=== PATIENT | female | born 1985 | race Caucasian/White ===

== ENCOUNTER 2018-08-13 10:57 | Inpatient (IN) | payer BC, OTHER ==
[~2018-08-13] VITALS: Ht 160 cm; Wt 114.7 kg
[~2018-08-13 10:57] MED LIST: COUM1TAB17 PO; HYDR-3713 PO; IBUP-1022 PO; LORT5TAB PO; LOVE0.8I SC; PRENTAB74 PO; ZOFR4TAB16 PO
[2018-08-13 11:49] LABS: BASO # 0.1 10^3/uL (0.0-0.2); BASO % 0.9 % (0.0-1.0); EOS # 0.9 10^3/uL (0.0-0.50); EOS % 9.4 % (0.0-3.0); HEMATOCRIT 35.5 % (36.0-47.0); HEMOGLOBIN 11.1 g/dl (12.0-15.5); LYMPH % 31.5 % (24.0-44.0); MEAN CORPUSCULAR HEMOGLOBIN 25.7 pg (27.0-33.0); MEAN CORPUSCULAR HGB CONC 31.3 g/dl (32.0-36.5); MEAN CORPUSCULAR VOLUME 82.2 fl (80.0-96.0); MONO # 0.5 10^3/uL (0.0-0.8); MONO % 5.1 % (0.0-5.0); NEUTROPHILS # 5.1 10^3/uL (1.8-7.7); NEUTROPHILS % 52.9 % (36.0-66.0); PLATELET COUNT, AUTOMATED 400 10^3/uL (150-450); RED BLOOD COUNT 4.32 10^6/uL (4.00-5.40); WHITE BLOOD COUNT 9.6 10^3/uL (4.0-10.0)
[2018-08-13 12:15] LABS: ALBUMIN 3.1 GM/DL (3.2-5.2); ALT/SGPT 18 U/L (12-78); BILIRUBIN,DIRECT < 0.1 MG/DL (0.0-0.2); BILIRUBIN,TOTAL < 0.1 MG/DL (0.2-1.0); BLOOD UREA NITROGEN 16 MG/DL (7-18); CALCIUM LEVEL 8.6 MG/DL (8.5-10.1); CARBON DIOXIDE LEVEL 26 MEQ/L (21-32); CHLORIDE LEVEL 109 MEQ/L (98-107); GLOMERULAR FILTRATION RATE > 60.0 (>60); GLUCOSE, FASTING 104 MG/DL (70-100); LIPASE 147 U/L (73-393); POTASSIUM SERUM 3.8 MEQ/L (3.5-5.1); SODIUM LEVEL 142 MEQ/L (136-145); TOTAL PROTEIN 7.6 GM/DL (6.4-8.2)
[2018-08-13] MEDS ORDERED: NS 1,000 ML IV ONE (12:30)
[2018-08-13 12:56] LABS: HCG, SERUM QUALITATIVE INDETERM. (NEGATIVE)
[2018-08-13] MEDS ORDERED: ISOVUE-370 76% 100ML VIAL (Q9967) As Ordered ONE (15:00)
[2018-08-13 15:42] LABS: FERRITIN 12 NG/ML (8-252); HCG, SERUM QUANTITATIVE 8 MIU/ML; IRON (FE) 25 UG/DL (50-170); PERCENT SATURATION 7.8 % (13.2-45.0); TOTAL IRON BINDING CAPACITY 320 UG/DL (250-450)
[2018-08-13 16:23] LABS: CA 125 8.7 U/ML (<30.2)
--- NOTE | 2018-08-13 16:23 | HPEPDOC ---
General Date of Admission 08/13/2018 Date of Service: Aug 13, 2018 Chief Complaint The patient is a 32-year-old female who presented to the ER with bright red bleeding per rectum History of Present Illness Patient is 32-year-old female with a PMHx significant for ovarian cancer (Dx 2014; Stage 3; Follows with Dr. Jesse aBe at [facility]; s/p surgery and chemotherapy), Hx of PE and Hx of Asthma, who presented to the emergency room after experiencing several episodes of bloody bowel movements. Patient had reported that over the course of several months, she is experiencing on and off episodes of minor rectal bleeding. 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 Patient describes the bowel movements as having clots and filling the toilet bowl with blood. On questioning the patient about quantity she reported lots of blood patient continued to experience episodes of rectal bleeding and has again experienced this in the emergency room. Patient reports some suprapubic tenderness and associated nausea without any vomiting. Patient also reports that earlier she was experiencing dizziness/lightheadedness, but denies any loss of consciousness. She denies any shortness of breath, palpitations or chest pain. Patient denies any discomfort with urination. Denies any fevers or chills in the last 2 weeks. Patient is not sure of any change in her weight, but notes that her appetite is fairly okay. Patient is not followed up with any physician over the last several years. Home Medications No Active Prescriptions or Reported Meds Allergies Coded Allergies: cephalexin (Verified Adverse Reaction, Unknown, 08/13/18) HOOD chest tightness Past Medical History Medical History Ovarian cancer, stage III; follows with the Jesse Brown - s/p radical hysterectomy, bilateral salpingo-oophorectomy, partial colon resection, appendectomy, diaphragm resection and partial omentum resection History of pulmonary embolism (2014) History of asthma as a child Surgical History Cholecystectomy 2012 Family History - Mother and father without any reported medical problems - Paternal grandfather with a history of colon cancer Social History - Denies the use of alcohol, tobacco or illicit drugs - Denies recent travel or sick contacts - Lives with boyfriend and 2 children - 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; 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 [employer] Review of Systems Other systems 10 point review of systems complete, all negative otherwise stated in HPI Vital Signs - Vitals: BP 122/70, HR 66, RR 18, Sat 100%RA, Temp 97.7F - General: Lying in bed, No acute distress, Speaking in full sentences, AAOx3 - HEENT: NC, AT, PERRLA, EOMI - CVS: RRR, +S1S2, - Murmurs / rubs / gallops - Lungs: Fair air entry bilaterally, Clear to auscultation, No wheezing / rales / rhonchi - Abdomen: Soft, Non-distended, mild tenderness is appreciated at suprapubic region - Extremities: No lower extremity edema, No calf tenderness - Neuro: No focal motor or sensory deficit - Skin: No visible rashes Laboratory Data Labs 24H Laboratory Tests 2 08/13/18 11:26: Human Chorionic Gonadotropin, Qual INDETERM. 08/13/18 11:34: Immature Granulocyte % (Auto) 0.2, White Blood Count 9.6, Red Blood Count 4.32, Hemoglobin 11.1L, Hematocrit 35.5L, Mean Corpuscular Volume 82.2, Mean Corpuscular Hemoglobin 25.7L, Mean Corpuscular Hemoglobin Concent 31.3L, Red Cell Distribution Width 13.5, Platelet Count 400, Neutrophils (%) (Auto) 52.9, Lymphocytes (%) (Auto) 31.5, Monocytes (%) (Auto) 5.1H, Eosinophils (%) (Auto) 9.4H, Basophils (%) (Auto) 0.9, Neutrophils # (Auto) 5.1, Lymphocytes # (Auto) 3.0, Monocytes # (Auto) 0.5, Eosinophils # (Auto) 0.9H, Basophils # (Auto) 0.1, Reticulocyte # (auto) 46.5, Nucleated Red Blood Cells % (auto) 0.0, Percent Reticulocyte Count 1.1, Reticulocyte Hemoglobin Equivalent 27.6, Anion Gap 7L, Glomerular Filtration Rate > 60.0, Calcium Level 8.6, Iron Level 25L, Total Iron Binding Capacity 320, Transferrin % Saturation 7.8L, Ferritin 12, Aspartate Amino Transf (AST/SGOT) 11, Alanine Aminotransferase (ALT/SGPT) 18, Alkaline Phosphatase 76, Total Bilirubin < 0.1L, Direct Bilirubin < 0.1, Total Protein 7.6, Albumin 3.1L, Albumin/Globulin Ratio 0.69L, Lipase 147, Human Chorionic Gonadotropin, Quant 8 CBC/BMP Laboratory Tests 08/13/18 11:34 Red Blood Count 4.32, Mean Corpuscular Volume 82.2, Mean Corpuscular Hemoglobin 25.7 L, Mean Corpuscular Hemoglobin Concent 31.3 L, Red Cell Distribution Width 13.5, Neutrophils (%) (Auto) 52.9, Lymphocytes (%) (Auto) 31.5, Monocytes (%) (Auto) 5.1 H, Eosinophils (%) (Auto) 9.4 H, Basophils (%) (Auto) 0.9, Neutrophils # (Auto) 5.1, Lymphocytes # (Auto) 3.0, Monocytes # (Auto) 0.5, Eosinophils # (Auto) 0.9 H, Basophils # (Auto) 0.1 Plan / VTE VTE Prophylaxis Ordered?: Yes Plan Plan Bright red bleeding per rectum - possibly 2/2 lower GI bleeding - Presented to the ER. Experienced several episodes of bloody bowel movements - In the ER, patient was positive orthostatic; she had an elevation of her heart rate upon standing - Hemoglobin on admission of 11.1; appears to be at baseline - Iron panel consistent with iron deficiency - CT scan of abdomen and pelvis completed; preliminary report reviewed; 7 cm segment of nodular thickening rectosigmoid with surrounding calcified lymph nodes, adjacent distortion of pelvic soft tissues, likely postsurgical change - Case been discussed with Dr. Luna of gastroenterology; patient reevaluated for possible colonoscopy - Will consent patient for blood transfusions and continue following hemoglobin every 6 hours - Will place the patient on clear liquid diet for now Ovarian cancer - Was diagnosed in 2014, stage III - Patient had followed with the Dr. Jesse Brown - s/p radical hysterectomy, bilateral salpingo-oophorectomy, partial colon resection, appendectomy, diaphragm resection and partial omentum resection - s/p chemotherapy x 6 rounds History of pulmonary embolism (2014) - Occurred around diagnosis of ovarian cancer - Has completed anticoagulation therapy with Lovenox and Coumadin for 6 months duration - Currently not on anticoagulation History of asthma as a child - Currently no evidence of exacerbation - Currently does not take any therapy DVT prophylaxis - Will start ALMA/MONO Blount MD Aug 13, 2018 16:23
[2018-08-13 17:59] LABS: HEMATOCRIT 33.9 % (36.0-47.0); HEMOGLOBIN 10.6 g/dl (12.0-15.5)
--- NOTE | 2018-08-13 18:42 | REP ---
CT ABDOMEN AND PELVIS WITH IV CONTRAST: TECHNIQUE: Axial contrast enhanced images from the lung bases to the pubic symphysis using 100 mL Isovue 370 intravenous contrast material with multiplanar reformations. No infiltrate is seen in the visualized lung bases. The liver demonstrates no mass. Spleen, adrenals, pancreas and kidneys are unremarkable. There is no abdominal aortic aneurysm. There is no free air or free fluid. Scattered calcified lymph nodes are seen, two are seen adjacent to the stomach. There are several in the pelvis. There is segmental nodular thickening of the rectosigmoid colon extending for a length of about 7 cm. There is surrounding distortion of pelvic soft-tissues which may represent post-surgical changes from prior hysterectomy and surgery for prior ovarian cancer. Soft tissue mass is seen in the left lateral pelvis measuring 3.7 x 2.3 cm. No periaortic adenopathy is seen. Urinary bladder is mildly distended with no gross abnormality. There may also be a segment of thickening of the inferior left colon approximately 4 cm in length. IMPRESSION: Segmental nodular thickening of the rectosigmoid colon, suspect neoplasm. This extends for a length of 7 cm. There is also a soft-tissue mass in the left lateral pelvis 3.7 x 2.3 cm. Several calcified lymph nodes are seen in the abdomen and pelvis. There may also be a segment of thickening of the inferior left colon approximately 4 cm in length. Electronically Signed by Aaron Sam MD 08/17/2018 09:54 A
[2018-08-13] MEDS ORDERED: MAGNESIUM CITRATE 300 ML BTL PO ONE (19:00)
[2018-08-13] MEDS ORDERED: POLYETHYLENE GLYCOL (MIRALAX) 238GM BOTTLE PO ONE (19:30)
[2018-08-13 20:00] VITALS: BP 100/60
[2018-08-13 20:24] LABS: CA19-9 TUMOR MARKER,CARBOHYDRA 17.1 U/ML (<35.0)
[2018-08-14] VITALS (8 sets, daily range): BP systolic 110–138; BP diastolic 53–94
[2018-08-14 00:17] LABS: HEMATOCRIT 34.7 % (36.0-47.0); HEMOGLOBIN 10.6 g/dl (12.0-15.5)
[2018-08-14] MEDS: ONDANSETRON 4MG/2ML VIAL (J2405) IV PRN ×2 (01:37→09:48)
[2018-08-14] MEDS ORDERED: MIDAZOLAM INJ 2 MG/2 ML VIAL (J2250) As Ordered ONE (07:35)
[2018-08-14] MEDS ORDERED: LIDOCAINE 2% INJ 100 MG/5 ML SDV (FOR ANES.) As Ordered ONE (07:35)
[2018-08-14] MEDS ORDERED: PROPOFOL 200 MG/20 ML VIAL As Ordered ONE ×4 (07:35→09:40)
[2018-08-14] MEDS ORDERED: fentaNYL 100 MCG/2 ML INJECTION (J3010) As Ordered ONE (07:36)
[2018-08-14 07:58] LABS: BASO # 0.1 10^3/uL (0.0-0.2); BASO % 0.7 % (0.0-1.0); EOS # 0.7 10^3/uL (0.0-0.50); EOS % 10.5 % (0.0-3.0); HEMOGLOBIN 11.3 g/dl (12.0-15.5); LYMPH # 2.5 10^3/uL (1.5-4.5); LYMPH % 36.5 % (24.0-44.0); MEAN CORPUSCULAR HEMOGLOBIN 25.7 pg (27.0-33.0); MEAN CORPUSCULAR HGB CONC 31.4 g/dl (32.0-36.5); MONO # 0.5 10^3/uL (0.0-0.8); MONO % 6.9 % (0.0-5.0); NEUTROPHILS # 3.1 10^3/uL (1.8-7.7); NEUTROPHILS % 45.3 % (36.0-66.0); PLATELET COUNT, AUTOMATED 371 10^3/uL (150-450); RED BLOOD COUNT 4.39 10^6/uL (4.00-5.40); WHITE BLOOD COUNT 6.8 10^3/uL (4.0-10.0)
[2018-08-14 08:18] LABS: BLOOD UREA NITROGEN 9 MG/DL (7-18); CALCIUM LEVEL 9.2 MG/DL (8.5-10.1); CARBON DIOXIDE LEVEL 26 MEQ/L (21-32); CHLORIDE LEVEL 109 MEQ/L (98-107); CREATININE FOR GFR 0.75 MG/DL (0.55-1.30); GLOMERULAR FILTRATION RATE > 60.0 (>60); GLUCOSE, FASTING 103 MG/DL (70-100); MAGNESIUM LEVEL 2.2 MG/DL (1.8-2.4); POTASSIUM SERUM 4.2 MEQ/L (3.5-5.1); SODIUM LEVEL 141 MEQ/L (136-145)
[2018-08-14] MEDS ORDERED: ePHEDrine SULFATE 25 MG/5 ML(5MG/ML) SYRINGE As Ordered ONE (09:06)
[2018-08-14] MEDS ORDERED: ONDANSETRON 4MG/2ML VIAL (J2405) As Ordered ONE (09:54)
--- NOTE | 2018-08-14 10:19 | ROOR ---
Patient Name: Karin Resendiz Procedure Date: 08/14/2018 6:31 AM Date of : 1985 Age: 32 Gender: Female Note Status: Finalized Procedure: Colonoscopy Indications: Hematochezia Providers: Gino LUNA MD Referring MD: 2. Inpatient 2. Inpatient, 1. No Referring Physician 1. No Referring Physician, Admin. Requesting Provider: Medicines: Monitored Anesthesia Care Complications: No immediate complications. Procedure: Pre-Anesthesia Assessment: - The heart rate, respiratory rate, oxygen saturations, blood pressure, adequacy of pulmonary ventilation, and response to care were monitored throughout the procedure. The Colonoscope was introduced through the anus and advanced to 5 cm into the ileum. The colonoscopy was performed without difficulty. The patient tolerated the procedure well. The quality of the bowel preparation was fair. Findings: The perianal and digital rectal examinations were normal. (EXAM: Complete, PREP: Suboptimal) Multiple large (4-6 cm) infiltrative, submucosal and ulcerated partially obstructing large masses was found in the recto-sigmoid colon, in the sigmoid colon and in the distal descending colon. The masses are non-circumferential, but are large enough to cause significant restriction/partial obstruction. This was biopsied with a cold forceps for histology. The exam was otherwise without abnormality on direct and retroflexion views. Impression: - (EXAM: Complete to terminal ileum, PREP: Suboptimal) - At least 5 large separate malignant appearing partially obstructing masses in the segment from distal descending colon to recto-sigmoid colon. The masses range from 4 cm to 6 cm in size and are likely extrinsic or submucosal ulcerating impants . Biopsied. - The colonoscopy to the terminal ileum was otherwise normal on direct and retroflexion views. Recommendation: - Miralax 1 capful (17 grams) in 8 ounces of water twice a day. (loosen stools to avoid impaction/obstruction) - Resume regular diet. - Refer to an oncologist at the next available appointment. - Refer to a colo-rectal/ob gyn onc surgeon at the next available appointment. - Pt may be discharged home today for outpatient management if her appointments can be arranged reasonably soon/within the next 1-2 weeks. - Await pathology results. Gino Luna MD Gino LUNA MD 08/14/2018 10:19:18 AM Electronically signed by Gino LUNA MD Number of Addenda: 0 Note Initiated On: 08/14/2018 6:31 AM Estimated Blood Loss: Estimated blood loss: none.
[2018-08-14] MEDS: LR 1,000 ML IV SCH ×2 (10:30→11:22)
[2018-08-14] MEDS ORDERED: ONDANSETRON 4MG/2ML VIAL (J2405) IV PRN (10:30)
[2018-08-14] MEDS ORDERED: MORPHINE 4 MG/ML 1ML VIAL/SYRINGE (J2270) IV PRN (10:45)
[2018-08-14] MEDS ORDERED: FERR325T3 PO (12:01)
--- NOTE | 2018-08-14 12:25 | DS.PDOC ---
Discharge Summary General Date of Admission Aug 13, 2018 at 16:18 Date of Discharge 08/14/2018 Discharge Summary PROCEDURES PERFORMED DURING STAY: Colonoscopy 08/14/2018: 5 large separate malignant appearing partially obstructing masses in this segment from distal descending colon to the rectosigmoid colon masses range from 4 cm to 6 cm in size and are likely extrinsic or submucosal ulcerating implants. They have been biopsied. The colonoscopy to the terminal ileum was otherwise normal. On direct and retroflexion views ADMITTING DIAGNOSES / DISCHARGE DIAGNOSES: Bright red bleeding per rectum - likely 2/2 lower GI bleeding - likely secondary to colonic masses Stage III ovarian cancer History of pulmonary embolism (2014) History of asthma as a child DVT prophylaxis COMPLICATIONS/CHIEF COMPLAINT: Rectal Bleeding HISTORY OF PRESENT ILLNESS: Patient is 32-year-old female with a PMHx significant for ovarian cancer (Dx 2014; Stage 3; Follows with Dr. Jesse Bae at [facility]; s/p surgery and chemotherapy), Hx of PE and Hx of Asthma, who presented to the emergency room after experiencing several episodes of bloody bowel movements. Patient had reported that over the course of several months, she is experiencing on and off episodes of minor rectal bleeding. 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 Patient describes the bowel movements as having clots and filling the toilet bowl with blood. On questioning the patient about quantity she reported lots of blood patient continued to experience episodes of rectal bleeding and has again experienced this in the emergency room. Patient was admitted to the hospitalist service for further evaluation and treatment. Gastroenterology was called for consultation. HOSPITAL COURSE: Bright red bleeding per rectum - possibly 2/2 lower GI bleeding - Presented to the ER after experienced several episodes of bloody bowel movements - Patient has not spent any further episodes of bowel movements - Hemoglobin on admission of 11.1; hemoglobin has remained stable; has not required transfusions - Iron panel consistent with iron deficiency - CT scan of abdomen and pelvis consistent with possible malignancy - s/p Colonoscopy 08/14: Revealed 5 separate areas extrinsic masses which were ul cerating - All imaging and procedure findings were discussed in detail with the patient; she is aware of the findings and necessity for immediate follow-up - Case has been discussed with Dr. Betsy Bangura; She will have immediate follow-up this week with Dr. Jesse Brown of gynecologic oncology at [facility] Ovarian cancer - Was diagnosed in 2014, stage III - Patient had followed with the Dr. Jesse Brown - s/p radical hysterectomy, bilateral salpingo-oophorectomy, partial colon rese ction, appendectomy, diaphragm resection and partial omentum resection - s/p chemotherapy x 6 rounds - Tumor markers (CEA,CA19-9,CA125) do not appear to be significantly elevated History of pulmonary embolism (2014) - Occurred around diagnosis of ovarian cancer - Has completed anticoagulation therapy with Lovenox and Coumadin for 6 months duration - Currently not on anticoagulation History of asthma as a child - Currently no evidence of exacerbation - Currently does not take any therapy DVT prophylaxis - c/w ALMA/Sequentials DISCHARGE MEDICATIONS: Please see below. ALLERGIES: Please see below. PHYSICAL EXAMINATION ON DISCHARGE: Vitals (See below) General: Lying in bed, no acute distress, comfortable, AAOx3 HEENT: NC, AT CVS: RRR, +S1S2 Lungs: Fair air entry b/l, no auscultated wheezing, rhonchi or rales Abdomen: Soft, nondistended and nontender, obese Extremities: - Edema, - Calf tenderness LABORATORY DATA: Please see below. IMAGING: CT abdomen / pelvis 08/13/18: Segmental nodular thickening of the rectosigmoid colon, suspect neoplasm. This extends for a length of 7 cm. There is also a soft-tissue mass in the left lateral pelvis 3.7 x 2.3 cm. Several calcified lymph nodes are seen in the pelvis. There may also be a segment of thickening of the inferior left colon approximately 4 cm in length. PROGNOSIS: Poor ACTIVITY: [As tolerated]. DISCHARGE PLAN: Discussed with Dr. Betsy Bangura; will have immediate follow-up this week with Dr. Jesse Brown of gynecologic oncology at [facility] Will establish primary care provider for subsequent follow-ups; Will have follow-up with Dr. Moreno within 1-2 weeks Remain compliant with treatment plan and medications Return to the ER if you experience any problems DISPOSITION: Home DISCHARGE CONDITION: [Stable]. TIME SPENT ON DISCHARGE: 45 minutes Vital Signs/I&Os Vital Signs Date Time Temp Pulse Resp B/P (MAP) Pulse Ox O2 Delivery O2 Flow Rate FiO2 08/14/18 12:00 97.7 76 17 132/94 (107) 100 08/13/18 18:28 Room Air I&O- Last 24 Hours up to 6 AM 08/14/18 06:00 Intake Total 120 ml Output Total 675 ml Balance -555 ml Laboratory Data Labs 24H Laboratory Tests 2 08/14/18 07:32: Immature Granulocyte % (Auto) 0.1, White Blood Count 6.8, Red Blood Count 4.39, Hemoglobin 11.3L, Hematocrit 36.0, Mean Corpuscular Volume 82.0, Mean Corpuscular Hemoglobin 25.7L, Mean Corpuscular Hemoglobin Concent 31.4L, Red Cell Distribution Width 13.6, Platelet Count 371, Neutrophils (%) (Auto) 45.3, Lymphocytes (%) (Auto) 36.5, Monocytes (%) (Auto) 6.9H, Eosinophils (%) (Auto) 10.5H, Basophils (%) (Auto) 0.7, Neutrophils # (Auto) 3.1, Lymphocytes # (Auto) 2.5, Monocytes # (Auto) 0.5, Eosinophils # (Auto) 0.7H, Basophils # (Auto) 0.1, Nucleated Red Blood Cells % (auto) 0.0, Anion Gap 6L, Glomerular Filtration Rate > 60.0, Blood Urea Nitrogen 9, Creatinine 0.75, Sodium Level 141, Potassium Level 4.2, Chloride Level 109H, Carbon Dioxide Level 26, Calcium Level 9.2, Magnesium Level 2.2 CBC/BMP Laboratory Tests 08/13/18 17:53 08/13/18 23:48 08/14/18 07:32 Red Blood Count 4.39, Mean Corpuscular Volume 82.0, Mean Corpuscular Hemoglobin 25.7 L, Mean Corpuscular Hemoglobin Concent 31.4 L, Red Cell Distribution Width 13.6, Neutrophils (%) (Auto) 45.3, Lymphocytes (%) (Auto) 36.5, Monocytes (%) (Auto) 6.9 H, Eosinophils (%) (Auto) 10.5 H, Basophils (%) (Auto) 0.7, Neutrophils # (Auto) 3.1, Lymphocytes # (Auto) 2.5, Monocytes # (Auto) 0.5, Eosinophils # (Auto) 0.7 H, Basophils # (Auto) 0.1, Calcium Level 9.2 Discharge Medications Scheduled Ferrous Sulfate (Ferrous Sulfate) 325 Mg Tablet.dr, 1 TAB PO BID Allergies Coded Allergies: cephalexin (Verified Adverse Reaction, Unknown, 08/13/18) HOOD chest tightness MONO GLORIA MD Aug 14, 2018 12:25
[2018-08-14 12:28] LABS: HEMATOCRIT 37.7 % (36.0-47.0); HEMOGLOBIN 11.7 g/dl (12.0-15.5)
[2018-08-14] MEDS ORDERED: DICYCLOMINE 10 MG CAP PO PRN (12:45)
[2018-08-14] MEDS ORDERED: DICY1CAP8 PO (14:22)
== END 2018-08-14 15:05 | disposition home or self-care (01) | DRG 240 ==
LOC: M ED 10:57 → M ED INP 16:18 → M MSPAV 08-14 11:16
PROVIDERS: ADMIT Internal Medicine; ATTEND Internal Medicine
PROC: 0DBM8ZX Excision of Descending Colon, Via Natural or Artificial Opening Endoscopic, Diagnostic (ICD-10-PCS; 2018-08-14)
PROC: 0DBN8ZX Excision of Sigmoid Colon, Via Natural or Artificial Opening Endoscopic, Diagnostic (ICD-10-PCS; principal; 2018-08-14 08:30)
DX: C78.5 Secondary malignant neoplasm of large intestine and rectum (principal); J45.909 Unspecified asthma, uncomplicated; Z85.43 Personal history of malignant neoplasm of ovary; Z90.710 Acquired absence of both cervix and uterus; Z90.49 Acquired absence of other specified parts of digestive tract; Z90.722 Acquired absence of ovaries, bilateral; Z86.711 Personal history of pulmonary embolism; Z92.21 Personal history of antineoplastic chemotherapy

== ENCOUNTER 2018-10-26 01:22 | Emergency (ER) | payer OTHER, BC ==
[~2018-10-26] VITALS: Ht 160 cm; Wt 108.6 kg
[~2018-10-26 01:22] MED LIST changes: +ANAS1TAB2 PO; +DICY1CAP8 PO; +FERR325T3 PO; +IBUP200C33 PO; +MAPA500C PO
[2018-10-26 01:23] VITALS: BP 135/89
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
== END 2018-10-26 04:08 | disposition left against medical advice (07) ==
LOC: M ED 01:22
DX: Z04.1 Encounter for examination and observation following transport accident (principal); S39.011A Strain of muscle, fascia and tendon of abdomen, initial encounter; V49.40XA Driver injured in collision with unspecified motor vehicles in traffic accident, initial encounter; Z93.3 Colostomy status; Z88.1 Allergy status to other antibiotic agents

== ENCOUNTER → 2018-11-16 | Outpatient (CLI) | payer BC ==
[~2018-11-16] MED LIST changes: +GASTROGRAFIN SOLUTION 30ML (Q9963) As Ordered ONE; +ISOVUE-370 76% 100ML VIAL (Q9967) As Ordered ONE
--- NOTE | 2018-11-16 14:04 | REP ---
CT ABDOMEN AND PELVIS WITHOUT AND WITH IV AND WITH ORAL CONTRAST: HISTORY: Restaging ovarian carcinoma. This was originally diagnosed in 2016, at which point she underwent exploratory laparotomy, hysterectomy, omentectomy, and debulking surgery. In August 2018, the patient underwent a second laparotomy for radical debulking with resection of sigmoid and descending colon and transverse colon as well as small bowel resection and Renaldo's colostomy. COMPARISON: CT study October 26, 2018 and August 13, 2018. CT CONTRAST DOSE: 100 mL of intravenous Isovue [address] FINDINGS: Preliminary digital food beverage supervisor radiograph demonstrates clips in right upper quadrant post cholecystectomy. Bowel gas pattern is unremarkable. The lung bases are clear on axial CT images. There is no evidence of pleural effusion. The liver is normal in size, homogeneous in texture. Spleen is normal in appearance. No adrenal lesion is observed on either side. No abnormalities noted in the pancreas. The kidneys enhance symmetrically and are morphologically intact. A left lower quadrant colostomy is seen with parastomal herniation of an unobstructed loop of small bowel. This is a new finding compared with the October 26, 2018 study. No retroperitoneal mass or adenopathy is observed. In the pelvis, there is a small quantity of vaginal air. The rectum appears oversewn. Uterus is surgically absent. Urinary bladder is intact. There is some fibrosis in the suprapubic region of the anterior abdominal wall. No definite abdominal wall mass lesion or nodularity is observed. There is a soft tissue density in the left pelvis anterior to the external iliac artery. This measures 3.1 x 2.9 x 3.2 cm. It is unchanged from the August 13, 2018 study and may be normal left ovary. It is higher than the usual ovarian location, but its stability and presence after the most recent debulking suggests that it is may be ovarian tissue. Medial to the cecum, there is a lymph node measuring 1.3 x 1.5 cranial nerve in diameter. There are two or three adjacent tiny mesenteric lymph nodes. These are stable since October 26, 2018 and August 2018 prior study. No other notable abdominal lymph nodes or soft tissue peritoneal deposits are seen. Bone window settings show no bony destructive lesion. IMPRESSION: Postoperative changes. Interval development of a parastomal hernia associated with the left colostomy transmitting a short loop of unobstructed small bowel. Stable right lower quadrant mesenteric lymph nodes. Soft tissue density in the left pelvis most compatible with ovarian tissue. This is unchanged. Electronically Signed by Edward Corral MD 11/16/2018 04:56 P
== END ==
LOC: M RAD 10:57
PROVIDERS: ATTEND Internal Medicine Hematology & Oncology
DX: C56.9 Malignant neoplasm of unspecified ovary (principal)

== ENCOUNTER 2019-03-25 12:21 | Day surgery (SDC) | payer BC ==
[~2019-03-25] VITALS: Ht 160 cm; Wt 121.3 kg
[~2019-03-25 12:21] MED LIST changes: -GASTROGRAFIN SOLUTION 30ML (Q9963) As Ordered ONE; -ISOVUE-370 76% 100ML VIAL (Q9967) As Ordered ONE; +NS 1,000 ML IV ONE
[2019-03-25] MEDS ORDERED: propofoL 200 MG/20 ML VIAL As Ordered ONE ×2 (13:49→14:10)
[2019-03-25] MEDS ORDERED: LIDOCAINE 2% INJ 100 MG/5 ML SDV (FOR ANES.) As Ordered ONE (13:49)
--- NOTE | 2019-03-25 14:22 | ROOR ---
Patient Name: Karin Resendiz Procedure Date: 03/25/2019 1:57 PM Date of : 1985 Age: 33 Room: [facility] Gender: Female Note Status: Finalized Procedure: Upper GI endoscopy Indications: Iron deficiency anemia Providers: Gino LUNA MD Referring MD: Jesse Brown MD, Shira Claudio Md Requesting Provider: Medicines: Monitored Anesthesia Care Complications: No immediate complications. Procedure: Pre-Anesthesia Assessment: - The heart rate, respiratory rate, oxygen saturations, blood pressure, adequacy of pulmonary ventilation, and response to care were monitored throughout the procedure. The Endoscope was introduced through the mouth, and advanced to the second part of duodenum. The upper GI endoscopy was accomplished without difficulty. The patient tolerated the procedure well. Findings: The esophagus was normal. The stomach was normal. The examined duodenum was normal. Impression: - Normal esophagus. - Normal stomach. - Normal examined duodenum. - No specimens collected. Recommendation: - Observe patient's clinical course. - Return to referring physician as previously scheduled. Gino Luna MD Gino LUNA MD 03/25/2019 2:22:00 PM Electronically signed by Gino LUNA MD Number of Addenda: 0 Note Initiated On: 03/25/2019 1:57 PM Estimated Blood Loss: Estimated blood loss: none.
[2019-03-25 14:40] VITALS: BP 134/94
== END 2019-03-25 14:50 | disposition home or self-care (01) ==
LOC: M OPP 12:21
PROVIDERS: ATTEND Internal Medicine Gastroenterology
DX: D50.9 Iron deficiency anemia, unspecified (principal); Z79.899 Other long term (current) drug therapy; Z88.1 Allergy status to other antibiotic agents; Z87.19 Personal history of other diseases of the digestive system

== ENCOUNTER → 2019-05-17 | Outpatient (CLI) | payer BC ==
[~2019-05-17] MED LIST changes: +GASTROGRAFIN SOLUTION 30ML (Q9963) As Ordered ONE; +ISOVUE-370 76% 100ML VIAL (Q9967) As Ordered ONE; -NS 1,000 ML IV ONE
--- NOTE | 2019-05-18 05:33 | REP ---
Clinical: Ovarian cancer. Restaging. Technique: Axial contrast enhanced images from the thoracic inlet to the upper abdomen with coronal and sagittal re-formations using 100 ml Isovue 370 intravenous contrast material. Comparison: 03/22/2015. Findings: No axillary, hilar, or mediastinal adenopathy is appreciated. The mediastinum including heart/pericardium, thoracic aorta and pulmonary vasculature appear normal. The bilateral lung rodríguez are well-aerated and clear. No consolidation, nodule or mass lesion. No pleural effusion. No pneumothorax. Tracheobronchial tree is patent. Surrounding musculoskeletal structures are intact without focal abnormality. Limited upper abdomen demonstrates normal bilateral adrenal glands and evidence of prior cholecystectomy. Impression: Normal contrast enhanced chest CT. No acute mediastinal or pleuroparenchymal process. No evidence for metastatic disease. Electronically Signed by Mynor Moreira MD 05/18/2019 05:24 A
--- NOTE | 2019-05-18 05:41 | REP ---
Clinical: Ovarian carcinoma. Restaging. Technique: Axial contrast enhanced images from the lung bases to the pubic symphysis using oral (per protocol) and 100 ml Isovue 370 intravenous contrast material including coronal and sagittal re-formations. Precontrast and delayed images of the abdomen obtained. Comparison: 11/16/2018. Findings: Liver, spleen, pancreas, bilateral adrenal glands and kidneys are normal. Evidence of prior cholecystectomy noted. The enteric system is without obstruction or acute inflammatory process. There is evidence for prior left hemicolectomy and ostomy with parastomal hernia containing mesenteric fat and nonobstructed bowel. Pelvis demonstrates relatively normal bladder and evidence for prior hysterectomy. Soft tissue in the left mckayla pelvis remains stable and may represent residual ovarian tissue. No ascites. No intraperitoneal or retroperitoneal adenopathy. No free air. No obvious focal mass lesion identified. Surrounding musculoskeletal structures are intact and without focal abnormality. Impression: 1. Status post left hemicolectomy with parastomal hernia containing mesenteric fat and nonobstructed loops of bowel. 2. Focal stable soft tissue in the left mckayla pelvis unchanged and likely representing residual ovarian tissue. 3. No ascites, adenopathy, obvious recurrence or metastatic disease noted. Electronically Signed by Mynor Moreira MD 05/18/2019 05:33 A
== END ==
LOC: M RAD 09:23
PROVIDERS: ATTEND Internal Medicine Hematology & Oncology
DX: K43.5 Parastomal hernia without obstruction or gangrene (principal); C56.9 Malignant neoplasm of unspecified ovary; Z90.49 Acquired absence of other specified parts of digestive tract
CPT/HCPCS: 71260; 74178; Q9963; Q9967

== ENCOUNTER → 2019-05-26 | Outpatient (CLI) | payer BC ==
[~2019-05-26] MED LIST changes: -GASTROGRAFIN SOLUTION 30ML (Q9963) As Ordered ONE; -ISOVUE-370 76% 100ML VIAL (Q9967) As Ordered ONE
--- NOTE | 2019-06-01 14:50 | DEXA ---
AP SPINE L1 - L4 1.027 -1.4 -1.4 LT FEMUR TOTAL 0.944 -0.5 -0.4 LT NECK 0.873 -1.2 -1.0 RT FEMUR TOTAL 0.946 -0.5 -0.4 RT NECK 0.930 -0.8 -0.6 TOTAL BODY TOTAL OTHER COMMENTS: Normal bone densitometry of the right hip. There is low bone density of the spine. There is low bone density of the left hip. FOLLOW-UP: Recommendation for the next bone density exam: 2 years. TONE
== END ==
LOC: M WHC 08:53
PROVIDERS: ATTEND Internal Medicine Hematology & Oncology
DX: M85.89 Other specified disorders of bone density and structure, multiple sites (principal); C56.9 Malignant neoplasm of unspecified ovary

== ENCOUNTER → 2019-06-06 | Outpatient (CLI) | payer BC ==
--- NOTE | 2019-06-06 19:53 | REP ---
PET/CT: History: Staging ovarian cancer. 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 Status post left and right oophorectomy with omental implants. Status post debulking surgery and adjuvant chemotherapy. Peritoneal and colonic recurrence status post partial colectomy and colostomy. Comparisons: Comparison is made with CT studies of the chest, abdomen abd pelvis, most recently from May 17, 2019. TECHNIQUE: 48 minutes following the intravenous injection of a 8.07 mCi dose of F-18 FDG, three-dimensional PET scintigraphy is acquired from the skull base to the proximal thighs. Triplanar noncontrast CT scanning is acquired through the same anatomic range for attenuation correction, and image registration with scan parameters optimized to minimize radiation exposure to the patient. PET scintigraphy and CT datasets were fused and displayed on a workstation with multiplanar and projection display capability. PET/CT Findings: There is moderately hypermetabolic uptake in the left iliac fossa mass consistent with ned or peritoneal tumor implant. Maximum standard uptake value here is 10.8. This deposit measures 3.2 cm in greatest diameter. There is a second hypermetabolic focus centrally in the pelvis. This measures 2.0 cm in greatest diameter. Maximum standard uptake value here is 6.55. These two pelvic foci are suspicious for intra-abdominal metastatic sites. No other suspicious focus of hypermetabolic uptake is seen in the abdomen and pelvis. No abnormal hepatic uptake is seen. No abnormal pulmonary parenchymal hypermetabolic uptake. No abnormal uptake is seen in the hilar or mediastinal regions. Head and neck soft tissues show no suspicious focus of abnormal uptake. No abnormal skeletal uptake. Impression: There are two foci of suspicious hypermetabolic uptake in the pelvis, one in the midline and the other in the left superior pelvis iliac fossa region. These are suspicious for metastatic disease. Electronically Signed by Edward Corral MD 06/07/2019 10:16 A
== END ==
LOC: M PLARAD 11:21
PROVIDERS: ATTEND Internal Medicine Hematology & Oncology
DX: R93.5 Abnormal findings on diagnostic imaging of other abdominal regions, including retroperitoneum (principal); C56.9 Malignant neoplasm of unspecified ovary
CPT/HCPCS: 78815; A9552

== ENCOUNTER → 2019-10-05 | Outpatient (CLI) | payer BC ==
[~2019-10-05] MED LIST changes: +GASTROGRAFIN SOLUTION 30ML (Q9963) ONE; +ISOVUE-370 76% 100ML VIAL ONE
[2019-11-07 10:06] LABS: BASO % 0.5 % (0.0-1.0); EOS # 0.2 10^3/uL (0.0-0.5); EOS % 3.3 % (0.0-3.0); HEMATOCRIT 39.3 % (36.0-47.0); HEMOGLOBIN 12.2 g/dl (12.0-15.5); LYMPH # 2.2 10^3/uL (1.5-5.0); LYMPH % 37.8 % (24.0-44.0); MEAN CORPUSCULAR HEMOGLOBIN 26.3 pg (27.0-33.0); MEAN CORPUSCULAR VOLUME 84.7 fl (80.0-96.0); MONO # 0.5 10^3/uL (0.0-0.8); NEUTROPHILS # 2.9 10^3/uL (1.5-8.5); NEUTROPHILS % 50.1 % (36.0-66.0); PLATELET COUNT, AUTOMATED 272 10^3/uL (150-450); RED BLOOD COUNT 4.64 10^6/uL (4.00-5.40); WHITE BLOOD COUNT 5.7 10^3/uL (4.0-10.0)
[2019-11-13 12:11] LABS: ALBUMIN 3.6 GM/DL (3.2-5.2); ALT/SGPT 18 U/L (12-78); BILIRUBIN,TOTAL 0.3 MG/DL (0.2-1.0); BLOOD UREA NITROGEN 16 MG/DL (7-18); CA 125 8.7 U/ML (<30.2); CALCIUM LEVEL 8.9 MG/DL (8.5-10.1); CARBON DIOXIDE LEVEL 29 MEQ/L (21-32); CHLORIDE LEVEL 109 MEQ/L (98-107); CREATININE FOR GFR 0.77 MG/DL (0.55-1.30); GLOMERULAR FILTRATION RATE > 60.0 (>60); GLUCOSE, FASTING 95 MG/DL (70-100); POTASSIUM SERUM 3.9 MEQ/L (3.5-5.1); SODIUM LEVEL 143 MEQ/L (136-145); TOTAL PROTEIN 7.4 GM/DL (6.4-8.2)
--- NOTE | 2019-11-28 07:44 | REP ---
CT OF THE ABDOMEN AND PELVIS WITH IV AND ORAL CONTRAST: HISTORY: Restaging exam, metastatic ovarian cancer. COMPARISON: CT study from 05/17/19. Report was delayed due to a malware attack on the facility. CONTRAST DOSE: 100 ml of intravenous Isovue 370 is administered. FINDINGS: Preliminary digital recreation teacher radiograph demonstrates an unremarkable bowel gas pattern. The lung bases are clear. The liver and the spleen are normal in size, homogeneous in texture. No abnormality is noted in the pancreas. The gallbladder is surgically absent. No adrenal abnormality is observed. The kidneys enhance symmetrically and are morphologically intact. No retroperitoneal mass or adenopathy is seen. There is a left mid-abdominal enterostomy with parastomal hernia transmitting abdominal fat and loop of adjacent small bowel, unchanged from the comparison study. There is actually less herniated bowel in the parastomal hernia today. No evidence of obstruction. The small and large bowel loops are otherwise unremarkable. There is a 6 mm lymph node adjacent to the common iliac artery on the right today which is slightly larger than on the most recent prior study of 05/17/19, although still not abnormal by CT size criteria. No other evidence of adenopathy is seen. No right pelvic mass lesion is visible today. There is a 2.2 x 3.0 cm soft tissue density high in the left pelvis consistent with left ovary. This is unchanged from 05/17/19 and 11/16/18. This should be compared with surgical history. In any event, it is stable. No new mass or adenopathy is observed. IMPRESSION: No new mass or definite adenopathy seen. There is a normal size right iliac lymph node, 6 mm in diameter, which is slightly larger, but still normal size criteria. Postoperative changes. MTDD
== END ==
LOC: M RAD 08:32
PROVIDERS: ATTEND Internal Medicine Hematology & Oncology
DX: C56.9 Malignant neoplasm of unspecified ovary (principal)
CPT/HCPCS: 36415; 74177; 80053; 85025; 86304; Q9963; Q9967

== ENCOUNTER → 2019-12-14 | Outpatient (CLI) | payer BC ==
[~2019-12-14] MED LIST changes: -GASTROGRAFIN SOLUTION 30ML (Q9963) ONE; -ISOVUE-370 76% 100ML VIAL ONE
[2019-12-14 13:03] LABS: BASO % 0.6 % (0.0-1.0); EOS # 0.2 10^3/uL (0.0-0.5); EOS % 2.7 % (0.0-3.0); HEMATOCRIT 39.9 % (36.0-47.0); HEMOGLOBIN 12.4 g/dl (12.0-15.5); LYMPH # 2.5 10^3/uL (1.5-5.0); LYMPH % 35.8 % (24.0-44.0); MEAN CORPUSCULAR HEMOGLOBIN 26.8 pg (27.0-33.0); MEAN CORPUSCULAR HGB CONC 31.1 g/dl (32.0-36.5); MEAN CORPUSCULAR VOLUME 86.2 fl (80.0-96.0); MONO # 0.6 10^3/uL (0.0-0.8); MONO % 7.8 % (0.0-5.0); NEUTROPHILS # 3.7 10^3/uL (1.5-8.5); NEUTROPHILS % 52.8 % (36.0-66.0); PLATELET COUNT, AUTOMATED 317 10^3/uL (150-450); RED BLOOD COUNT 4.63 10^6/uL (4.00-5.40); WHITE BLOOD COUNT 7.1 10^3/uL (4.0-10.0)
[2019-12-14 13:24] LABS: ALBUMIN 3.4 GM/DL (3.2-5.2); ALT/SGPT 16 U/L (12-78); BILIRUBIN,TOTAL 0.3 MG/DL (0.2-1.0); BLOOD UREA NITROGEN 15 MG/DL (7-18); CARBON DIOXIDE LEVEL 29 MEQ/L (21-32); CHLORIDE LEVEL 108 MEQ/L (98-107); CREATININE FOR GFR 0.75 MG/DL (0.55-1.30); GLOMERULAR FILTRATION RATE > 60.0 (>60); GLUCOSE, FASTING 91 MG/DL (70-100); SODIUM LEVEL 142 MEQ/L (136-145); TOTAL PROTEIN 7.3 GM/DL (6.4-8.2)
[2019-12-14 14:01] LABS: CA 125 19.8 U/ML (<30.2)
== END ==
LOC: M LAB 11:35
PROVIDERS: ATTEND Internal Medicine Hematology & Oncology
DX: C56.9 Malignant neoplasm of unspecified ovary (principal)

== ENCOUNTER → 2019-12-26 | Outpatient (CLI) | payer BC ==
[~2019-12-26] MED LIST changes: +GASTROGRAFIN SOLUTION 30ML (Q9963) As Ordered ONE; +ISOVUE-370 76% 100ML VIAL As Ordered ONE
--- NOTE | 2019-12-26 15:39 | REP ---
INDICATION: OVARION CA. COMPARISON: 10/05/2019, 08/13/2018 TECHNIQUE: Axial contrast-enhanced images from the lung bases to the pubic symphysis using 100 cc Isovue 370 intravenous contrast material. Precontrast and delayed images of the abdomen obtained along with coronal and sagittal reformations. This CT examination was performed using the following dose reduction techniques: Automated exposure control, adjustment of mA and/or kv according to the patient's size, and the use of iterative reconstruction technique. FINDINGS: The lung bases are clear. Visualized heart and pericardium appear normal. Liver, spleen, pancreas, and bilateral adrenal glands are normal. The kidneys are relatively normal although mild prominence to the extrarenal pelvises versus mild early hydronephrosis cannot be excluded or differentiated. There is no evidence for bowel obstruction. Partial colonic resection with colostomy via the left anterior abdominal wall is noted and there is an associated peristomal hernia containing fat and moderately distended single loop of small bowel although without definite obstruction pattern. Pelvis demonstrates normal bladder and evidence for prior hysterectomy. There are 2 round enhancing lesions at the level of the residual cervical stump suggesting small enhancing lymph nodes and correlation is required (image 117). There is a small irregular area of soft tissue along the left iliac fossa measuring 2.8 cm (image 109) which may be slightly increased from 08/13/2018. No ascites. No free air. Abdominal aorta and vasculature appear normal. Musculoskeletal structures are intact and without acute osseous abnormality. IMPRESSION: 1. 2 enhancing suspected lymph nodes at the level of the residual cervical stump within the pelvis and small focus of soft tissue along the left iliac fossa require further investigation and follow up to exclude active metastases. 2. Cannot exclude mild bilateral hydronephrosis which may warrant ultrasound follow-up. 3. Ostomy with peristomal hernia containing fat and prominent but unobstructed loop of small bowel. <Electronically signed by Mynor Moreira > 12/26/19 [id number]
== END ==
LOC: M RAD 13:07
PROVIDERS: ATTEND Specialist
DX: C56.9 Malignant neoplasm of unspecified ovary (principal)

== ENCOUNTER → 2020-02-28 | Outpatient (CLI) | payer SELFPAY ==
[~2020-02-28] MED LIST changes: -GASTROGRAFIN SOLUTION 30ML (Q9963) As Ordered ONE; -ISOVUE-370 76% 100ML VIAL As Ordered ONE
== END ==
LOC: M LABSMTC 14:34
PROVIDERS: ATTEND Pediatrics
DX: Z20.828 Contact with and (suspected) exposure to other viral communicable diseases (principal)

== ENCOUNTER → 2020-03-22 | Outpatient (CLI) | payer BC ==
--- NOTE | 2020-03-23 10:58 | ECHO ---
DATE OF PROCEDURE: 03/22/2020 Age: 34 Gender: Female Height: 63 inches Weight: 268 pounds Body surface area: 2.19 m2 PATIENT LOCATION: Outpatient. REFERRING PHYSICIAN: Kurt Laguerre MD INDICATION: Potentially cardiotoxic chemotherapy. MEASUREMENTS: 2D Measurements: RV 4.0 cm LV 4.2 cm Septum 1.0 cm Posterior wall 1.0 cm Aortic Root 3.6 cm LA 3.8 cm LVEF 65% Doppler Measurements: AV 1.27 m/s LVOT 1.07 m/s LVOT diameter 2.1 cm MV-E 74, A 52, E/A ratio 1.4 Early mitral deceleration time 204 msec E prime medial 8.8, A prime medial 10, E prime lateral 13 Average E/E prime ratio 6.8/PCWP 10.3 mmHg PV 0.8 m/s Pulmonary artery acceleration time 140 msec RVSP 26 mmHg IVC 1.9 cm COMMENTS: Sinus bradycardia without intraventricular conduction disturbance. Somewhat technically challenging study in light of the patients body habitus, but diagnostically useful information was still obtained. Normal left ventricular size, wall thickness, and wall motion. Left atrial size upper limits of normal with currently normal Doppler assessment of LV diastolic function and estimated mean left atrial pressure. Right heart chamber sizes were upper limits of normal with normal wall motion and current estimated pulmonary arterial pressure. Normal IVC size and collapse against an elevated central venous pressure. Normal aortic dimensions. Normal appearing and functioning valvular structures. No apparent intracardiac mass or pericardial effusion. MTDD
== END ==
LOC: M CARPUL 10:26
PROVIDERS: ATTEND Internal Medicine Hematology & Oncology
DX: C56.2 Malignant neoplasm of left ovary (principal)

== ENCOUNTER → 2020-03-26 | Outpatient (CLI) | payer BC ==
[~2020-03-26] MED LIST changes: +GASTROGRAFIN SOLUTION 30ML (Q9963) As Ordered ONE; +ISOVUE-370 76% 100ML VIAL As Ordered ONE
--- NOTE | 2020-03-27 17:26 | REP ---
INDICATION: HX OF OVARIAN CA. COMPARISON: Multiple prior examinations dating between 12/26/2019 and 08/13/2018 TECHNIQUE: Axial contrast-enhanced images from the lung bases to the pubic symphysis using oral and 100 cc Isovue 370 intravenous contrast material. Delayed images of the abdomen along with coronal and sagittal reformations obtained.. This CT examination was performed using the following dose reduction techniques: Automated exposure control, adjustment of mA and/or kv according to the patient's size, and the use of iterative reconstruction technique. FINDINGS: Lung bases are clear. Visualized heart and pericardium normal. Liver, spleen, pancreas, bilateral adrenal glands and kidneys are normal. The patient appears to be status post left hemicolectomy with colostomy via the left anterior abdominal wall. There is a moderate peristomal hernia containing mesenteric fat and nonobstructed loops of small bowel. There is no evidence for bowel obstruction or acute enteric process. Pelvis demonstrates oversewn Renaldo's pouch and normal bladder with evidence for prior hysterectomy. Two enhancing lesions at the level of the cervical stump are again identified and measure roughly 2.3 cm and 1.7 cm each which are slightly increased from prior examination. There is also continued nonenhancing soft tissue along the left hemipelvis (series 201; image 111) which is similar to prior examination and nonspecific this may represent mass versus normal residual ovarian tissue. No ascites. No free air. No intraperitoneal or retroperitoneal adenopathy. Abdominal aorta and vasculature appear normal. Musculoskeletal structures are intact and without acute osseous abnormality. IMPRESSION: 1. Two enhancing nodules in the pelvis at the level of the cervical stump which appears slightly increased in size from prior examination and concerning for pathologic lymph nodes or metastatic foci. 2. Focal nonenhancing soft tissue in the left hemipelvis similar to prior examination and nonspecific in appearance differential diagnosis would include residual left ovary and correlation with surgical history is recommended. 3. Colostomy with peristomal hernia containing nonobstructed small bowel. 4. No further acute abdominopelvic pathology appreciated. 5. No ascites. No further significant or retroperitoneal adenopathy. No focal inflammatory stranding. <Electronically signed by Mynor Moreira > 03/27/20 [id number]
== END ==
LOC: M RAD 12:39
PROVIDERS: ATTEND Internal Medicine Hematology & Oncology
DX: Z85.43 Personal history of malignant neoplasm of ovary (principal); R93.5 Abnormal findings on diagnostic imaging of other abdominal regions, including retroperitoneum
CPT/HCPCS: 74177; Q9963; Q9967

== ENCOUNTER → 2020-04-17 | Outpatient (CLI) | payer BC ==
[~2020-04-17] MED LIST changes: -GASTROGRAFIN SOLUTION 30ML (Q9963) As Ordered ONE; -ISOVUE-370 76% 100ML VIAL As Ordered ONE
[2020-04-17 12:51] LABS: APPEARANCE, URINE CLEAR (CLEAR); BACTERIA, URINE AUTO NEGATIVE (NEGATIVE); BILIRUBIN, URINE AUTO NEGATIVE (NEGATIVE); BLOOD, URINE BLOOD NEGATIVE (NEGATIVE); COLOR, URINE STRAW (YELLOW); GLUCOSE, URINE (UA) AUTO NEGATIVE (NEGATIVE); KETONE, URINE AUTO NEGATIVE (NEGATIVE); LEUKOCYTE ESTERASE, URINE AUTO 1+ (NEGATIVE); NITRITE, URINE AUTO NEGATIVE (NEGATIVE); PROTEIN, URINE AUTO NEGATIVE (NEGATIVE); RBC, URINE AUTO 1 /HPF (0-3); SPECIFIC GRAVITY URINE AUTO 1.009 (1.002-1.035); SQUAMOUS EPITHELIAL CELL UR AU 0 /HPF (0-6); UROBILINOGEN, URINE AUTO 0.2 mg/dL (0.0-2.0); WBC, URINE AUTO 3 /HPF (0-3)
== END ==
LOC: M LAB 12:04
PROVIDERS: ATTEND Nurse Practitioner
DX: C56.9 Malignant neoplasm of unspecified ovary (principal); R31.9 Hematuria, unspecified

== ENCOUNTER → 2020-06-28 | Outpatient (CLI) | payer BC ==
[~2020-06-28] MED LIST changes: +GASTROGRAFIN SOLUTION 30ML (Q9963) As Ordered ONE; +ISOVUE-370 76% 100ML VIAL As Ordered ONE
--- NOTE | 2020-06-28 15:40 | REP ---
INDICATION: MALIGNANT NEOPLASM OF UNSPECIFIED OVARY. COMPARISON: 03/26/2020 TECHNIQUE: Axial contrast-enhanced images from the lung bases to the pubic symphysis using oral and 100 cc Isovue 370 intravenous contrast material. Delayed images of the abdomen obtained along with coronal and sagittal reformations. This CT examination was performed using the following dose reduction techniques: Automated exposure control, adjustment of mA and/or kv according to the patient's size, and the use of iterative reconstruction technique. FINDINGS: Liver demonstrates mild fatty infiltration without acute focal abnormality. Small calcifications likely related to prior therapeutic intervention. Spleen and adjacent small splenule is a are stable and normal. Pancreas, bilateral adrenal glands and kidneys are normal. Evidence for prior cholecystectomy. The enteric system is without obstruction colonic fecal stasis noted along with evidence for colostomy via the left anterior abdominal wall and a small peristomal hernia contains mesenteric fat and nonobstructed loop of small bowel. Pelvis demonstrates collapsed bladder and evidence for prior hysterectomy. Just above the level of the cervical stump are 2 dense lesions measuring 3.3 cm and 2.1 cm maximal diameter which appear to be increased in size compared to 03/26/2020 and suspicious for metastatic foci. Similar appearing lesions are identified in the right lower quadrant adjacent to the proximal ascending colon (series 301; image 87) which may also represent enhancing metastatic foci. Although partially calcified lymph nodes cannot be excluded as well. There is no ascites. No free air. Retroperitoneal lymph nodes are also identified including a 12 mm pericaval lymph node just below the left renal vein which has increased in size from prior examination. IMPRESSION: 1. Two nodules within the pelvis and similar appearing nodules adjacent to the cecum in the right lower quadrant appear to be increased in size from prior examination. These findings along with few increased retroperitoneal lymph nodes are suspicious for active metastatic disease. Pre and postcontrast CT of the entire abdomen and pelvis may be warranted for more definitive evaluation and/or PET-CT. 2. Colostomy identified with peristomal hernia containing mesenteric fat and loop of small bowel. <Electronically signed by Mynor Moreira > 06/28/20 [id number]
== END ==
LOC: M RAD 13:27
PROVIDERS: ATTEND Obstetrics & Gynecology Gynecologic Oncology
DX: C56.9 Malignant neoplasm of unspecified ovary (principal); Z93.3 Colostomy status
CPT/HCPCS: 74177; Q9963; Q9967

== ENCOUNTER → 2020-07-05 | Outpatient (CLI) | payer BC ==
[~2020-07-05] MED LIST changes: -GASTROGRAFIN SOLUTION 30ML (Q9963) As Ordered ONE; -ISOVUE-370 76% 100ML VIAL As Ordered ONE
[2020-07-05 10:02] LABS: BLOOD UREA NITROGEN 14 MG/DL (7-18); CALCIUM LEVEL 9.4 MG/DL (8.5-10.1); CARBON DIOXIDE LEVEL 28 MEQ/L (21-32); CHLORIDE LEVEL 110 MEQ/L (98-107); CREATININE FOR GFR 0.69 MG/DL (0.55-1.30); GLOMERULAR FILTRATION RATE > 60.0 (>60); GLUCOSE, FASTING 96 MG/DL (70-100); POTASSIUM SERUM 4.4 MEQ/L (3.5-5.1); SODIUM LEVEL 141 MEQ/L (136-145)
[2020-07-05 13:35] LABS: CA 125 85.2 U/ML (<30.2)
== END ==
LOC: M LAB 08:31
PROVIDERS: ATTEND Obstetrics & Gynecology Gynecologic Oncology
DX: C56.9 Malignant neoplasm of unspecified ovary (principal); Z93.3 Colostomy status; K76.0 Fatty (change of) liver, not elsewhere classified; I89.0 Lymphedema, not elsewhere classified

== ENCOUNTER 2020-07-20 19:32 | Emergency (ER) | payer BC ==
[~2020-07-20] VITALS: Ht 160 cm; Wt 121.6 kg
[2020-07-20 22:03] LABS: BASO % 0.2 % (0.0-1.0); EOS % 0.4 % (0.0-3.0); HEMATOCRIT 43.2 % (36.0-47.0); HEMOGLOBIN 13.8 g/dl (12.0-15.5); LYMPH # 1.8 10^3/uL (1.5-5.0); LYMPH % 20.1 % (24.0-44.0); MEAN CORPUSCULAR HGB CONC 31.9 g/dl (32.0-36.5); MEAN CORPUSCULAR VOLUME 84.5 fl (80.0-96.0); MONO # 0.7 10^3/uL (0.0-0.8); NEUTROPHILS # 6.3 10^3/uL (1.5-8.5); PLATELET COUNT, AUTOMATED 417 10^3/uL (150-450); RED BLOOD COUNT 5.11 10^6/uL (4.00-5.40); WHITE BLOOD COUNT 8.9 10^3/uL (4.0-10.0)
[2020-07-20] MEDS ORDERED: MORPHINE 4 MG/ML 1ML VIAL/SYRINGE (J2270) IV ONE (22:05)
[2020-07-20] MEDS ORDERED: NS 1,000 ML IV ONE (22:05)
[2020-07-20] MEDS ORDERED: ONDANSETRON 4MG/2ML VIAL IV ONE (22:05)
[2020-07-20 22:23] LABS: ALBUMIN 3.7 GM/DL (3.2-5.2); BILIRUBIN,DIRECT 0.1 MG/DL (0.0-0.2); BILIRUBIN,TOTAL 0.6 MG/DL (0.2-1.0); TOTAL PROTEIN 8.1 GM/DL (6.4-8.2)
[2020-07-21] MEDS ORDERED: HYDR-3713 PO (00:18)
[2020-07-21] MEDS ORDERED: ONDA4TAB6 PO (00:18)
--- NOTE | 2020-07-21 00:26 | REPVR ---
PROCEDURE INFORMATION: Exam: XR Complete Acute Abdomen Series Exam date and time: 07/20/2020 12:03 AM Age: 34 years old Clinical indication: Other: Abd pain, vomiting; Additional info: Abd pain, vomiting TECHNIQUE: Imaging protocol: XR complete acute abdomen series, including 2 or more views of the abdomen and a single view chest. COMPARISON: CT ABD PELVIS WITH CONTRAST 06/28/2020 3:04 PM FINDINGS: Lungs: There are multifocal air-fluid levels. There is small bowel dilatation measuring up to 3.5 cm. Pleural spaces: Normal. No pleural effusions. No pneumothorax. Heart/Mediastinum: Normal. No cardiomegaly. Gastrointestinal tract: See "Lungs" finding. Intraperitoneal space: Normal. No free air. Vasculature: Phleboliths within the pelvis. Bones/joints: Normal. No acute fracture. Soft tissues: Normal. IMPRESSION: 1. Multifocal air-fluid levels with small bowel dilatation measuring up to 3.5 cm raising concern for obstruction. 2. No acute cardiopulmonary process. Electronically signed by: Zeyad Fong On 07/21/2020 00:26:16 AM
[2020-07-21 00:29] VITALS: BP 124/92
== END 2020-07-21 00:31 | disposition home or self-care (01) ==
LOC: M ED 19:32
DX: R10.9 Unspecified abdominal pain (principal); G89.29 Other chronic pain; C56.9 Malignant neoplasm of unspecified ovary; R11.2 Nausea with vomiting, unspecified; Z79.899 Other long term (current) drug therapy; Z88.1 Allergy status to other antibiotic agents
CPT/HCPCS: 74021; 80047; 80076; 83605; 83690; 85025; 96374; 96375; 99284; J2270; J2405

== ENCOUNTER 2020-09-18 18:18 | Emergency (ER) | payer BC ==
[~2020-09-18] VITALS: Ht 160 cm; Wt 118.7 kg
[~2020-09-18 18:18] MED LIST changes: +ONDA4TAB6 PO
[2020-09-18 20:21] LABS: BASO % 0.5 % (0.0-1.0); EOS % 0.6 % (0.0-3.0); HEMATOCRIT 40.9 % (36.0-47.0); HEMOGLOBIN 12.9 g/dl (12.0-15.5); LYMPH # 1.4 10^3/uL (1.5-5.0); LYMPH % 21.1 % (24.0-44.0); MEAN CORPUSCULAR HEMOGLOBIN 26.1 pg (27.0-33.0); MEAN CORPUSCULAR HGB CONC 31.5 g/dl (32.0-36.5); MEAN CORPUSCULAR VOLUME 82.6 fl (80.0-96.0); MONO # 0.7 10^3/uL (0.0-0.8); NEUTROPHILS # 4.3 10^3/uL (1.5-8.5); NEUTROPHILS % 66.5 % (36.0-66.0); PLATELET COUNT, AUTOMATED 345 10^3/uL (150-450); RED BLOOD COUNT 4.95 10^6/uL (4.00-5.40); WHITE BLOOD COUNT 6.5 10^3/uL (4.0-10.0)
[2020-09-18 20:40] LABS: ALBUMIN 3.6 GM/DL (3.2-5.2); ALT/SGPT 87 U/L (12-78); BILIRUBIN,DIRECT 0.2 MG/DL (0.0-0.2); BILIRUBIN,TOTAL 0.6 MG/DL (0.2-1.0); BLOOD UREA NITROGEN 13 MG/DL (7-18); CALCIUM LEVEL 9.1 MG/DL (8.5-10.1); CARBON DIOXIDE LEVEL 26 MEQ/L (21-32); CHLORIDE LEVEL 104 MEQ/L (98-107); CREATININE FOR GFR 0.81 MG/DL (0.55-1.30); GLOMERULAR FILTRATION RATE > 60.0 (>60); GLUCOSE, FASTING 103 MG/DL (70-100); POTASSIUM SERUM 3.4 MEQ/L (3.5-5.1); SODIUM LEVEL 142 MEQ/L (136-145); TOTAL PROTEIN 7.9 GM/DL (6.4-8.2)
[2020-09-18] MEDS ORDERED: MORPHINE 4 MG/ML 1ML VIAL/SYRINGE (J2270) IV PRN (20:50)
[2020-09-18] MEDS ORDERED: ONDANSETRON 4MG/2ML VIAL IV ONE (20:50)
[2020-09-18 21:32] LABS: APPEARANCE, URINE HAZY (CLEAR); BACTERIA, URINE AUTO NEGATIVE (NEGATIVE); BILIRUBIN, URINE AUTO NEGATIVE (NEGATIVE); BLOOD, URINE BLOOD 2+ (NEGATIVE); COLOR, URINE YELLOW (YELLOW); GLUCOSE, URINE (UA) AUTO NEGATIVE (NEGATIVE); KETONE, URINE AUTO NEGATIVE (NEGATIVE); LEUKOCYTE ESTERASE, URINE AUTO NEGATIVE (NEGATIVE); MUCUS, URINE SMALL (NEGATIVE); NITRITE, URINE AUTO NEGATIVE (NEGATIVE); PROTEIN, URINE AUTO 1+ mg/dL (NEGATIVE); RBC, URINE AUTO 51 /HPF (0-3); SPECIFIC GRAVITY URINE AUTO 1.023 (1.002-1.035); SQUAMOUS EPITHELIAL CELL UR AU 1 /HPF (0-6); WBC, URINE AUTO 3 /HPF (0-3)
[2020-09-18] MEDS ORDERED: ISOVUE-370 76% 100ML VIAL As Ordered ONE (21:46)
--- NOTE | 2020-09-19 01:06 | REPVR ---
PROCEDURE INFORMATION: Exam: CT Abdomen And Pelvis With Contrast Exam date and time: 09/18/2020 10:52 PM Age: 34 years old Clinical indication: Abdominal pain; Localized; Left lower quadrant (llq); Additional info: Llq abd pain, HX of ovarian CA, ostomy, new onset vag bleed TECHNIQUE: Imaging protocol: Computed tomography of the abdomen and pelvis with contrast. Radiation optimization: All CT scans at this facility use at least one of these dose optimization techniques: automated exposure control; mA and/or kV adjustment per patient size (includes targeted exams where dose is matched to clinical indication); or iterative reconstruction. Contrast material: ISOVUE 370; Contrast volume: 100 ml; Contrast route: INTRAVENOUS (IV); COMPARISON: 1. CT ABD PELVIS WITH CONTRAST 06/28/2020 3:[address] ABD PELVIS WITH CONTRAST 03/26/2020 2:14:24 PM FINDINGS: Lungs: The imaged portions of the lung bases are clear. The lungs were not fully imaged. Heart: No cardiomegaly or pericardial effusion. Diaphragm: Intact. Liver: There is an 8 mm high attenuation mass along the capsule of segment 8 of the right hepatic lobe that is unchanged compared to the prior CT abdomen and pelvis on 06/28/2020 on 03/26/2020. Gallbladder and bile ducts: There has been a cholecystectomy. There is no fluid collection in the gallbladder fossa. No dilation of the bile ducts is noted. Pancreas: Normal. No dilation of the main pancreatic duct is noted. Spleen: There are high attenuation masses measuring up to 8 mm along the splenic capsule, which are stable compared to the prior CT abdomen and pelvis on 06/28/2020. No splenomegaly is noted. Incidental note is made of a small accessory spleen. Adrenal glands: Normal. No adrenal mass is noted. There is an 8 mm nodule adjacent to the left adrenal gland that has increased in size from 6 mm since the prior CT abdomen and pelvis on 06/28/2020 (image 39 of the axial series 201). Kidneys and ureters: The kidneys are normal in appearance. No renal lesion is noted. No stones are noted in the kidneys or ureters. There is no hydronephrosis or hydroureter. There are no wedge-shaped areas of low attenuation in the kidneys to suggest pyelonephritis. There is no renal abscess or perinephric fluid collection. Stomach and bowel: Postoperative changes are noted from a left hemicolectomy, left-sided colostomy, and Renaldo's pouch. There is a small parastomal hernia containing a decompressed loop of small bowel and fat. There is a 6 cm mass along the inferior aspect of the antrum of the stomach (image 45 of the coronal series 202 and image 40 of the axial series 201), which has increased in size from [address] abdomen and pelvis on 06/28/2020. There are dilated loops of small bowel measuring up to 5.7 cm in diameter predominantly in the left side of the abdomen, with a transition point in the left side of the abdomen. Appendix: The appendix is not identified and may have been removed. No dilated blind ending tubular structure, inflammatory fat stranding, or fluid is noted in the expected location of the appendix. Intraperitoneal space: There are 9 mm, 2.9 cm, and 3.2 cm high attenuation mesenteric masses in the right lower quadrant of the abdomen adjacent to the ileocecal valve, which are unchanged compared to the prior CT abdomen and pelvis on 06/28/2020 (images 44, 51, and 56 of the coronal series 202). There is a trace amount of ascites around the liver and spleen. Retroperitoneal space: No fluid collection. Vasculature: No abdominal aortic aneurysm or occlusion. Lymph nodes: There is a 12 mm retroperitoneal lymph node located between the inferior vena cava and abdominal aorta that is stable compared to the prior CT abdomen and pelvis on 06/28/2020 (image 65 of the axial series 201). There is a 3.3 cm irregular mass along the left external iliac chain (image 121 of the axial series 201), which is unchanged compared to the prior CT abdomen and pelvis on 06/28/2020. Subcentimeter retroperitoneal mesenteric lymph nodes are present. Urinary bladder: There is thickening of the wall of the partially distended urinary bladder. Reproductive: There has been a hysterectomy. There is a 4.4 cm x 4.4 cm x 5 cm high attenuation mass along the superior margin the vaginal cuff, which has increased in size from 4 cm x 4 cm x 4.[address] abdomen and pelvis on 06/28/2020. Bones/joints: There is no fracture or dislocation. No suspicious osteolytic or osteoblastic lesion. 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 There are degenerative changes involving the lower lumbar spine. Soft tissues: There is a midline vertical incision scar in the anterior abdominal wall. IMPRESSION: 1. Dilated loops of small bowel with air-fluid levels predominantly in the left side of the abdomen, with a transition point in the left side of the abdomen, which may indicate a small bowel obstruction or ileus. 2. Status post hysterectomy, and there is a 4.4 cm x 4.4 cm x 5 cm high attenuation mass along the superior margin of the vaginal cuff, which has increased in size from 4 cm x 4 cm x 4.[address] abdomen and pelvis on 06/28/2020 and is suspicious for malignancy/metastatic disease. 3. 6 cm mass along the inferior aspect of the antrum of the stomach, which has increased in size from [address] abdomen and pelvis on 06/28/2020 and is suspicious for malignancy/metastatic disease. 4. 3.3 cm irregular mass along the left external iliac chain, which is unchanged compared to the prior CT abdomen and pelvis on 06/28/2020 and is suspicious for malignancy/metastatic disease. 5. 8 mm nodule adjacent to the left adrenal gland that has increased in size from 6 mm since the prior CT abdomen and pelvis on 06/28/2020. 6. 9 mm, 2.9 cm, and 3.2 cm high attenuation mesenteric masses in the right lower quadrant of the abdomen adjacent to the ileocecal valve, an 8 mm high attenuation mass along the capsule of segment 8 of the right hepatic lobe, and high attenuation masses measuring up to 8 mm along the splenic capsule, which are stable compared to the prior CT abdomen and pelvis on 06/28/2020 and may represent peritoneal metastases. 7. 12 mm retroperitoneal lymph node located between the inferior vena cava and abdominal aorta that is stable compared to the prior CT abdomen and pelvis on 06/28/2020. 8. Status post left hemicolectomy, Renaldo's pouch, and left colostomy, and there is a small parastomal hernia containing fat and a decompressed loop of small bowel. 9. Trace amount of ascites around the liver and spleen. COMMENTS: Consistent with the [employer]'s Incidental Findings Committee white paper (J Am Estella Radiol 2017): Any incidental adrenal lesion less than or equal to 1 cm is likely benign. No follow-up imaging is recommended for these lesions per consensus recommendations based on imaging criteria. Further lab evaluation could be pursued if warranted based on clinical findings. Electronically signed by: Ricardo Lindsey On 09/19/2020 01:06:19 AM
[2020-09-19 05:01] VITALS: BP 145/95
--- NOTE | 2020-09-19 20:39 | ECGEPIP ---
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
== END 2020-09-19 05:06 | disposition home or self-care (01) ==
LOC: M ED 18:18
DX: K56.7 Ileus, unspecified (principal); N93.9 Abnormal uterine and vaginal bleeding, unspecified; C56.9 Malignant neoplasm of unspecified ovary; Z92.21 Personal history of antineoplastic chemotherapy; Z79.899 Other long term (current) drug therapy; Z88.1 Allergy status to other antibiotic agents
CPT/HCPCS: 74177; 80048; 80076; 81001; 85025; 86850; 86900; 86901; 93005; 96374; 96375; 99285; J2270; J2405; Q9967

== ENCOUNTER 2020-12-17 18:59 | Emergency (ER) | payer BC ==
[~2020-12-17] VITALS: Ht 157.5 cm; Wt 109.5 kg
[2020-12-17] MEDS ORDERED: MORPHINE 4 MG/ML 1ML VIAL/SYRINGE (J2270) IV ONE (20:40)
[2020-12-17] MEDS ORDERED: NS 1,000 ML IV ONE (20:40)
[2020-12-17] MEDS ORDERED: ONDANSETRON 4MG/2ML VIAL IV ONE (20:40)
[2020-12-17 21:16] LABS: BASO % 0.3 % (0.0-1.0); EOS # 0.1 10^3/uL (0.0-0.5); HEMATOCRIT 40.6 % (36.0-47.0); HEMOGLOBIN 12.7 g/dl (12.0-15.5); LYMPH # 0.6 10^3/uL (1.5-5.0); LYMPH % 10.2 % (24.0-44.0); MEAN CORPUSCULAR HEMOGLOBIN 25.4 pg (27.0-33.0); MEAN CORPUSCULAR HGB CONC 31.3 g/dl (32.0-36.5); MEAN CORPUSCULAR VOLUME 81.2 fl (80.0-96.0); MONO # 0.3 10^3/uL (0.0-0.8); MONO % 4.1 % (2.0-8.0); NEUTROPHILS # 5.2 10^3/uL (1.5-8.5); NEUTROPHILS % 84.1 % (36.0-66.0); PLATELET COUNT, AUTOMATED 351 10^3/uL (150-450); WHITE BLOOD COUNT 6.2 10^3/uL (4.0-10.0)
[2020-12-17] MEDS ORDERED: POTASSIUM CHLORIDE 10MEQ SR TABLET PO ONE (21:30)
[2020-12-17 21:40] LABS: ALBUMIN 3.2 GM/DL (3.2-5.2); BILIRUBIN,DIRECT 0.1 MG/DL (0.0-0.2); BILIRUBIN,TOTAL 0.4 MG/DL (0.2-1.0); C REACTIVE PROTEIN QUANTITATIV 0.54 MG/DL (0.00-0.30); TOTAL PROTEIN 7.8 GM/DL (6.4-8.2)
[2020-12-17] MEDS ORDERED: KETOROLAC 30 MG/ML 1ML VIAL IV ONE (21:45)
--- NOTE | 2020-12-17 22:26 | REPVR ---
PROCEDURE INFORMATION: Exam: XR Complete Acute Abdomen Series Including Chest Exam date and time: 12/17/2020 9:17 PM Age: 34 years old Clinical indication: Abdominal pain; Additional info: Slowing of colostomy TECHNIQUE: Imaging protocol: XR complete acute abdomen series, including 2 or more views of the abdomen and a single view chest. COMPARISON: CT ABD/PEL W/IV CONTRAST ONLY 09/18/2020 10:42 PM FINDINGS: Lungs: Normal. No consolidation. Pleural spaces: Normal. No pleural effusions. No pneumothorax. Heart/Mediastinum: Normal. No cardiomegaly. Gastrointestinal tract: Minimal gas in the GI tract. There is borderline distention of a short small bowel segment in the left upper quadrant which may be adjacent to an ostomy site. No abnormal air-fluid levels. Intraperitoneal space: No free air. Organs: Status post cholecystectomy. Bones/joints: Normal. No acute fracture. Soft tissues: Normal. IMPRESSION: 1. Minimal gas overall with question of borderline distention of a short small bowel segment in the left mid abdomen which may be adjacent to an ostomy site. There is decreased gas in this area overall since 07/20/2020. 2. Otherwise negative abdomen. 3. Negative chest. Electronically signed by: Dallas Mcgowan On 12/17/2020 22:26:18 PM
--- NOTE | 2020-12-17 23:44 | REPVR ---
PROCEDURE INFORMATION: Exam: CT Abdomen And Pelvis Without Contrast Exam date and time: 12/17/2020 10:46 PM Age: 34 years old Clinical indication: Abdominal pain; Generalized; Prior surgery; Surgery date: 6+ months; Surgery type: Ostomy from hysterectomy; Additional info: Flank pain TECHNIQUE: Imaging protocol: Computed tomography of the abdomen and pelvis without contrast. Radiation optimization: All CT scans at this facility use at least one of these dose optimization techniques: automated exposure control; mA and/or kV adjustment per patient size (includes targeted exams where dose is matched to clinical indication); or iterative reconstruction. COMPARISON: CT ABD/PEL W/IV CONTRAST ONLY 09/18/2020 10:42 PM FINDINGS: Lungs: Minimal bibasilar fibro-atelectatic change. Liver: Peripheral hepatic calcific densities are noted and similar to the prior study. Gallbladder and bile ducts: Status post cholecystectomy. Pancreas: Normal. No ductal dilation. Spleen: Calcific densities at the periphery of the spleen which are similar to the prior study. Adrenal glands: Ovoid calcification adjacent to the left adrenal which is increased since the prior study measuring 12 x 18 x 11 mm. Kidneys and ureters: Normal. No hydronephrosis. Stomach and bowel: Colostomy at the level of the distal transverse colon. Calcific densities adjacent to the ascending colon which may reflect calcified nodes or contrast within diverticula. Mild distention of small bowel in the left abdomen which is similar to the prior study. Rounded prominence along the caudal aspect of the gastric antrum with minimal gas centrally which may reflect antral gastritis or site of ulceration but was present previously. Appendix: Probable prior appendectomy with sutures in the area. Intraperitoneal space: Mild perihepatic fluid which is increased since the prior study and may be loculated. Vasculature: Unremarkable. No abdominal aortic aneurysm. Lymph nodes: Small periaortic retroperitoneal nodes which are upper normal and slightly increased overall since the prior study. Urinary bladder: Unremarkable as visualized. Reproductive: Status post hysterectomy. Lobular calcific density interposed between the vaginal cuff and rectum which is increased in size since the prior study. Bones/joints: Unremarkable. No acute fracture. Soft tissues: Unremarkable. IMPRESSION: 1. Mild perihepatic fluid which is slightly increased since 09/18/2020 and may be loculated in view of localized location. 2. There has been prior cholecystectomy and hysterectomy. 3. Multiple ovoid or rounded calcific densities with many appearing similar to the prior study, however, a calcific density adjacent to the left adrenal appears increased and of uncertain etiology. There is also a lobular calcific density in the pelvis interposed between the vaginal cuff and rectum which is increased in size since the prior study. 4. Mild distention of small bowel in the left abdomen which is similar to the prior study and may reflect a small bowel obstruction. 5. Small periaortic retroperitoneal nodes which are upper normal and appear slightly increased overall since the prior study. 6. Localized gastric antral wall thickening along the caudal aspect with central focus of gas which may reflect antral gastritis and possible site of gastric ulceration. 7. No renal or ureteral calculi are evident and there is no evidence of obstructive uropathy. Electronically signed by: Dallas Mcgowan On 12/17/2020 23:43:24 PM
[2020-12-18] MEDS ORDERED: PANTOPRAZOLE 40MG VIAL (C9113 PER 1) IV ONE (00:20)
[2020-12-18] MEDS ORDERED: POTA20TA6 PO (00:21)
[2020-12-18] MEDS ORDERED: OMEP40CA4 PO (00:22)
[2020-12-18] MEDS ORDERED: MORPHINE 4 MG/ML 1ML VIAL/SYRINGE (J2270) IV ONE (01:35)
[2020-12-18 01:50] VITALS: BP 135/89
--- NOTE | 2020-12-19 16:41 | ED PDOC ---
Post-Departure Follow-Up ct abd/p faxed to [facility] and [facility] for fu Delonte Egan MD Dec 19, 2020 16:41
== END 2020-12-18 01:51 | disposition home or self-care (01) ==
LOC: M ED 18:59
DX: K29.70 Gastritis, unspecified, without bleeding (principal); K56.7 Ileus, unspecified; E87.6 Hypokalemia; Z85.43 Personal history of malignant neoplasm of ovary; Z90.710 Acquired absence of both cervix and uterus; Z79.899 Other long term (current) drug therapy; Z88.1 Allergy status to other antibiotic agents
CPT/HCPCS: 74021; 74176; 80047; 80076; 83605; 83690; 85025; 86140; 96361; 96374; 96375; 96376; 99284; C9113; J1885; J2270; J2405

== ENCOUNTER → 2020-12-31 | Outpatient (CLI) | payer BC ==
[~2020-12-31] MED LIST changes: +GASTROGRAFIN SOLUTION 30ML (Q9963) As Ordered ONE; +ISOVUE-370 76% 100ML VIAL As Ordered ONE; +OMEP40CA4 PO; +POTA20TA6 PO
--- NOTE | 2020-12-31 16:49 | REP ---
INDICATION: OVARIAN CA PT NEEDS LABS BEFORE CT. COMPARISON: Multiple the latest 12/17/2020 a noncontrast enhanced exam and the latest contrast-enhanced exam 09/18/2020. TECHNIQUE: Standard helical technique after the intravenous administration of 100 cc Isovue 370. FINDINGS: There is no significant change in appearance of the lung bases. The liver, spleen, pancreas, adrenal glands, and kidneys are unchanged. There is ascites status quo. Scattered areas of free fluid or trapped in the spine leaves of the small bowel mesentery status quo. There is a dense calcified pelvic mass which is midline and unchanged. Multiple round calcified mesenteric nodular densities are again noted status quo. There is no significant change in appearance of the abdominal aorta or para-aortic region. Borderline to mildly enlarged para-aortic lymph nodes status quo. Seen abutting or arising from the stomach antral region there is a mass which measures 5.2 by 7.6 by 5.2 cm. Bone window technique throughout the examination shows no significant change in appearance of the osseous structures. IMPRESSION: Findings as described above. Could this patient possibly have a Krukenberg tumor? <Electronically signed by Omar Church > 12/31/20 [id number]
== END ==
LOC: M RAD 12:38
PROVIDERS: ATTEND Nurse Practitioner Adult Health
DX: C56.9 Malignant neoplasm of unspecified ovary (principal)
CPT/HCPCS: 74177; Q9963; Q9967

== ENCOUNTER → 2020-12-31 | Outpatient (CLI) | payer BC ==
[~2020-12-31] MED LIST changes: -GASTROGRAFIN SOLUTION 30ML (Q9963) As Ordered ONE; -ISOVUE-370 76% 100ML VIAL As Ordered ONE
[2020-12-31 15:21] LABS: BASO # 0.1 10^3/uL (0.0-0.2); BASO % 0.9 % (0.0-1.0); EOS # 0.2 10^3/uL (0.0-0.5); EOS % 3.2 % (0.0-3.0); HEMATOCRIT 38.9 % (36.0-47.0); HEMOGLOBIN 11.8 g/dl (12.0-15.5); LYMPH # 1.2 10^3/uL (1.5-5.0); LYMPH % 22.8 % (24.0-44.0); MEAN CORPUSCULAR HEMOGLOBIN 24.8 pg (27.0-33.0); MEAN CORPUSCULAR HGB CONC 30.3 g/dl (32.0-36.5); MEAN CORPUSCULAR VOLUME 81.9 fl (80.0-96.0); MONO # 0.4 10^3/uL (0.0-0.8); MONO % 7.6 % (2.0-8.0); NEUTROPHILS # 3.5 10^3/uL (1.5-8.5); NEUTROPHILS % 65.1 % (36.0-66.0); PLATELET COUNT, AUTOMATED 404 10^3/uL (150-450); RED BLOOD COUNT 4.75 10^6/uL (4.00-5.40); WHITE BLOOD COUNT 5.4 10^3/uL (4.0-10.0)
[2020-12-31 16:03] LABS: ALBUMIN 3.5 GM/DL (3.2-5.2); ALT/SGPT 22 U/L (12-78); BILIRUBIN,TOTAL 0.3 MG/DL (0.2-1.0); BLOOD UREA NITROGEN 14 MG/DL (7-18); CALCIUM LEVEL 9.5 MG/DL (8.5-10.1); CARBON DIOXIDE LEVEL 26 MEQ/L (21-32); CHLORIDE LEVEL 107 MEQ/L (98-107); CREATININE FOR GFR 0.82 MG/DL (0.55-1.30); GLOMERULAR FILTRATION RATE > 60.0 (>60); GLUCOSE, FASTING 107 MG/DL (70-100); SODIUM LEVEL 140 MEQ/L (136-145); TOTAL PROTEIN 7.5 GM/DL (6.4-8.2)
[2020-12-31 16:34] LABS: CA 125 160.2 U/ML (<30.2)
== END ==
LOC: M LAB 12:51
PROVIDERS: ATTEND Nurse Practitioner Adult Health
DX: C56.9 Malignant neoplasm of unspecified ovary (principal)

== ENCOUNTER → 2021-01-17 | Outpatient (CLI) | payer BC | LOC: M LABSMTC 11:19 | PROVIDERS: ATTEND Anesthesiology | DX: Z01.818 Encounter for other preprocedural examination (principal); Z11.52 Encounter for screening for COVID-19 ==

== ENCOUNTER 2021-01-21 11:46 | Day surgery (SDC) | payer BC ==
[~2021-01-21] VITALS: Ht 160 cm; Wt 105.2 kg
[~2021-01-21 11:46] MED LIST changes: +NS 1,000 ML IV ONE
--- OUTSIDE RECORDS SUMMARY | 2021-01-21 11:50 | CCD | Summary of Care ---
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 03/30/14 S/P hysterectomy 04/13/2014 Overview: Formatting of this note might be differ ent from the original. 03/30/14 GERD (gastroesophageal reflux disease) 01/24/2014 Malignant neoplasm of ovary 10/28/2013 Cancer Staging: Clinical stage from 03/10: FIGO Stage IIIB (T3b, N0, M0) - Signed by Julio Brown Jr., MD on 03/26/2019 documented as of this encounter (statuses as of 12/03/2020) Social History Date Tobacco Use Types Packs/Day Years Used Never Smoker Smokeless Tobacco: Never Used Comments Alcohol Use Standard Drinks/Week No 0 (1 standard drink = 0.6 o z pure alcohol) Social Isolation Answer Date Recorded In a typical week, how many times do you talk on Not asked the phone with family, friends, or neig hbors? How often do you get together with friends or Not as ked relatives? How often do you attend baptist or congregation Not aske d services? Do you belong to any clubs or organizations such Not asked as baptist groups, unions, fraternal or athletic groups, or school groups? How often do you attend meetings of the clubs or Not asked organizations you belong to? Are you now , , , , Living with partner 04/09/2020 never or living with a partner? Sex Assigned at Date Recorded Not on file Date Recorded COVID-19 Exposure Response 12/03/2020 9:42 AM EDT In the last month, have you been in contact with No / Unsure someone who was confirmed or suspected to have Coronavirus / COVID-19? documented as of this encounter Last Filed Vital Signs Reading Time Taken Comments Vital Sign 153/98 12/03/2020 9:44 AM EDT Blood Pressure 86 12/03/2020 9:44 AM EDT Pulse 36.3 C (97.3 F) 12/03/2020 9:44 AM EDT Temperature 16 12/03/2020 9:44 AM EDT Respiratory Rate - - Oxygen Saturation - - Inhaled Oxygen Concentration 113.4 kg (250 lb) 12/03/2020 9:44 AM EDT Weight 160 cm (5' 3") 12/03/2020 9:44 AM EDT Height 44.29 12/03/2020 9:44 AM EDT Body Mass Index documented in this encounter Progress Notes * Julio Brown Jr., MD - 12/03/2020 9:30 AM EDT Subjective: Other (Vaginal bleeding) and Ovarian Cancer HPI: Patient with Ovarian Cancer returns for reevaluation of disease. Today t he patient states that she has had intermittent vaginal bleeding at times simila r to a period. this is not occurring every day. She has also had occasional genny uts of abdominal pain. She brought with her a copy of a CT scan performed in Sep that we had not seen until today. Denies associated appetite change, bladder function change, bloating, bowel change, abdominal pain, pelvic pain, vaginal di scharge and weight loss. Today she has no new concerns. 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 He suspected dermoid cysts at the time of the surgery 03/30/2014 Surgery section, AGGIE-BSO, Omentectomy, Debulking Miliary disease. Low grade serous ovarian ca Stephanie and Bethanie 03/31/2014 - Cancer Staged Staging form: Ovary, AJCC 7th Edition - Clinical stage from 03/31/2014: FIGO Stage IIIB (T3b, N0, M0) - Signed by Julio Brown Jr., MD on 03/26/2019 05/02/2014 - 09/06/2014 Chemotherapy / Immunotherapy Carbo AUC 6 and Taxol 175 mg/ m2 Q 21 days X 6 Cycles. Provided in [place] by Dr. Salas 03/18/2018 Progression Pelvic mass invading sigmoid with positive biopsies on colonoscopy 08/27/2018 Surgery Exploratory laparotomy, secondary radical debulking, ychkowsvnwzl-hiwkwgzgao-du gmoid resection, Stacy colostomy, small bowel resection with stapled anastomos is. Minimal residual. Medication List: Current Outpatient Medications: Anastrozole 1 MG Oral Tablet (ARIMIDEX), 1 mg, Oral, Daily Allergies: Cephalexin Gynecological History: Patient's last menstrual period was 08/08/2013 (approximate). 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 She has never used smokeless tobacco. She re ports that she does not drink alcohol and does not use drugs. Family History Problem Relation Age of Onset Colon cancer Paternal Grandmother Diabetes Maternal Grandmother Stroke Maternal Grandmother defects Sister anencephaly Diabetes Sister Diabetes Maternal Aunt Heart attack Maternal Uncle Ovarian cancer Neg Hx Breast cancer Neg Hx Review of Systems All other systems negative except for what is documented in H PI. Objective: Visit Vitals BP (!) 153/98 Pulse 86 Temp 36.3 C (97.3 F) Resp 16 Ht 1.6 m (5' 3") Wt 113.4 kg (250 lb) LMP 08/08/2013 (Approximate) No BMI 44.29 kg/m Physical Exam Constitutional: Appearance: Normal appearance. Genitourinary: Pelvic exam was performed with patient in the lithotomy position. Vulva, inguinal canal, urethra, bladder and rectum normal. No vulval lesion, tenderness or ulcerations noted. Bladder neck is mobile. Cervix is absent. Uterus is absent. Right adnexa absent. Left adnexa absent. Genitourinary Comments: There is palpable tumor at the top of the vault. Rectum: No rectal mass, tenderness or abnormal anal tone. HENT: Head: Normocephalic and atraumatic. Nose: Nose normal. Eyes: General: No scleral icterus. Extraocular Movements: Extraocular movements intact. Conjunctiva/sclera: Conjunctivae normal. Pupils: Pupils are equal, round, and reactive to light. Cardiovascular: Rate and Rhythm: Normal rate and regular rhythm. Heart sounds: Normal heart sounds. No murmur heard. Lower Extremity Edema: Right lower leg: No edema. Left lower leg: No edema. Pulmonary: Effort: Pulmonary effort is normal. Breath sounds: Normal breath sounds. No wheezing, rhonchi or rales. Abdominal: General: Abdomen is flat. There is no distension. Palpations: Abdomen is soft. There is no mass. Tenderness: There is no abdominal tenderness. There is no right CVA tendernes s, left CVA tenderness or rebound. Hernia: No hernia is present. Comments: There is a functioning LLQ ostomy. Musculoskeletal: Normal range of motion. General: Normal range of motion. Cervical back: Normal range of motion and neck supple. No muscular tenderness . Lymphadenopathy: Cervical: No cervical adenopathy. Neurological: General: No focal deficit present. Mental Status: She is alert and oriented to person, place, and time. Skin: General: Skin is warm and dry. Psychiatric: Mood and Affect: Mood normal. Behavior: Behavior normal. Vitals reviewed. Data reviewed: 1. Labs: Ca 125 , Foundation testing 2. Imaging: CT Abd/Pelvis 3. Outside Records: Assessment and Plan: Patient remains in remission. Encounter Diagnoses Name Primary? 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 The tumor present at the apex of the vault is most likely the cause of her vaginal bleeding. If this becomes an issue this area w ould be treatable with local XRT. The patient has been to [facility] and a terri atment recommendation was not made. Review of her liquid biopsy shows a mutatio n that currently is not the subject of any medicatin or clinical trial. She is going to see her medical oncologist this afternoon. No problem-specific Assessment & Plan notes found for this encounter. No orders of the defined types were placed in this encounter. No follow-ups on file. Julio Brown Jr., MD [facility] ELECT[employer]ICAL HARDWARE ENGINEER ONCOLOGY OF [address] [address] Dept: [phone] documented in this encounter Plan of Treatment Care Team Description Date Type Specialty Julio Brown Jr., MD [address] [place] [address] [place] [address] 06/10/2021 Office Visit Gynecologic Oncolog y Health Maintenance Due Date Last Done Comments MMR Vaccines (1 of - 12/26/1987 Standard series) Varicella Vaccines (1 of 12/26/1987 2 - 2-dose childhood series) Pneumococcal Vaccine: 65+ 1992 Years (1 of 4 - PCV13) Pneumococcal Vaccine: 1992 Pediatrics (0 to 5 Years) and At-Risk Patients (6 to 64 Years) (1 of 4 - PCV13) DTaP,Tdap,and Td Vaccines 1993 (1 - Tdap) COVID-19 Vaccine (1) 1998 Influenza Vaccine 12/07/2020 Cervical Cancer Screening 04/25/2025 04/25/2020 5 years HIV Screening Completed 12/29/2013 HIB Vaccines Aged Out No longer eligible based on patient's age to complete this topic Hepatitis A Vaccines Aged Out No longer eligibl e based on patient's age to complete this topic Hepatitis B Vaccines Aged Out No longer eligibl e based on patient's age to complete this topic IPV Vaccines Aged Out No longer eligible based on patient's age to complete this topic documented as of this encounter Results Not on filedocumented in this encounter Visit Diagnoses Diagnosis Malignant neoplasm of both ovaries - Pr imary Secondary malignant neoplasm of retrope ritoneum and peritoneum Colostomy in place Colostomy status documented in this encounter
--- OUTSIDE RECORDS SUMMARY | 2021-01-21 11:50 | CCD | Continuity of Care Document ---
Author Author Karin LUNA MD Organization Unknown Address [address] [place] [address] Phone [phone] Care Team Providers Care Roving Department Supervisor Name Role Phone Nithin Huff AUTM Unavailable Shira Mcintosh M.D. AUTM [phone] No PCP AUTM Unavailable Problems Active Problems Provider Date Allergic asthma without status asthmaticus Adan monge DO Onset: 04/23/2012 Gallbladder calculus with acute cholecystitis and no o bstruction Adan Cook, Onset: 06/02/2012 Social History Type Date Description Comments Sex Unknown ETOH Use Occasionally consumes alcohol Tobacco Use Start: Unknown Non Smoker Allergies and adverse reactions Active Allergies Criticality Reaction | Severity Comments Date NKDA Unable to assess criticality 01/04/2019 Cephalosporins Unable to assess criticality 01/04/2019 Inactive Allergies NKDA Unable to assess criticality 04/23/2012 Medications Active Medications SIG Qnty Indications Ordering Provide r Date Anastrozole 1mg Tablets 1 by mouth every day Unknown Immunizations Description No Information Available Vital Signs Date Vital Result Comment 11/28/2020 10:01am BP Systolic 132 mmHg BP Diastolic 86 mmHg Height 63 inches 5'3" Weight 254.00 lb BMI (Body Mass Index) 45.0 kg/m2 [place] Body Weight 115 lb Weight 115.214 kg BSA (Body Surface Area) 2.14 m2 01/04/2019 9:19am BP Systolic 138 mmHg BP Diastolic 81 mmHg Height 63 inches 5'3" Weight 260.00 lb BMI (Body Mass Index) 46.1 kg/m2 [place] Body Weight 115 lb Weight 117.936 kg BSA (Body Surface Area) 2.16 m2 Results Description No Information Available Procedures Date Code Description Status 11/28/2020 40572 Office/Outpatient Established Mo d MDM 30-39 Min Completed Medical Devices Description No Information Available Encounters Type Date Location Provider Dx Diagnosis Office Visit 11/28/2020 9:50a [facility] Gino Luna MD K62.5 Hemorrhage of anus and rectu m N93.8 Other specified abnormal [place] and vaginal bleeding C56.9 Malignant neoplasm of unspec ified ovary Assessments Date Code Description Provider 11/28/2020 K62.5 Hemorrhage of anus and rectum Da darryn Luna MD 11/28/2020 N93.8 Other specified abnormal uterine and vaginal bleeding Gino Luna MD 11/28/2020 C56.9 Malignant neoplasm of unspecifie d ovary Gino Luna MD Plan of Treatment 11/28/2020 - Gino Luna MD* K62.5 Hemorrhage of anus and rectum * N93.8 Other specified abnormal uterine and vaginal bleeding * C56.9 Malignant neoplasm of unspecified ovary * * Referral:* Colby Brown Jr, MD, Oncology, Gynecologic * Comments:* Pt with increasing vaginal and rectal bleeding. has widely metastatic low grade ovarian malignancy. s/p colectomy/hartmans pouch.Her recent CT nshows increased size of lesion above vaginal cuff. * Recommendations:* I will defer further eval to Dr Brown for likel;y bleeding/ulceration at enlarging lesion at the vaginal cuff, likely also involving rectum/hartmans pouch. Functional Status Description No Information Available Mental Status Description No Information Available Referrals Refer to Reason for Referral Status Appt Date Colby Brown Jr, MD vaginal/rectal bleeding Created 0 [facility] [address] [place] [address] [phone]
--- OUTSIDE RECORDS SUMMARY | 2021-01-21 11:50 | CCD ---
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 DXCPLj4aNvLZXiUv97/BRKeeTBTrs2PiZWycMXq6XEuvCXFhA2CePHZ6eL5pBGF8GPmTGdLcQwOsDrSv lbm AwLguCOzLtNPLbYerPQtHeWGfgJlsnfZPbFN6CrZM1QSQcF85sZNIyYZQhJ2RoRUE7TrD+Kf5WGBKzuP WvQA9WXcvS9R3kjiq8Vu8roM8FvJPP2vPRC+4pYRffoE0CJggBjq6KHX9vkDBoa6SvhmYd+b/vPiXPmP pZXFE+h4wfXzoBxflcFB/hroVo/w2CGIUgaVxQ/bf8 NYyVOJ+KP/3ElX6p6yTz4o/nJUWMFFLLIqYKG080d7WXX2J05pZcGtJ0TE8HGTP37gyyFRYu+WS7Dlao 6vu0MVmyXqyuMg/EqttRb54P05rUuNSwQ/wyhp4Vf94Yu26dPueo3ZTuEEREcIYqWikeMeh6aMoTA50U /MLqon1/tWi/L+QV0PcFBt+K7qBjp+E5OOC2XxmbpL Navi/bB2LemwTBvV9BlXtObinP98igdQ7u7Xrn31jGIk9qWJSTIhOBjb3yz+znwrbc28Pg3JF74kWCyr6 [file] 5VEmcYnyxz231Gqo1JbEd4abNVwk7S+fyTqhy2sHlwNOuHHt+lQ6BV13P5Z2B+vIwDLTIV/[place]++xmif [file] hLDrrUhfZUMYWgZlZmwoOXceQJLUCl2Q ID Date Data Source [id number] 02/28/2020 12:00:00 AM EST [facility] Name Value Range Interpretation Code Description Data Lexis rce(s) Supporting Document(s) SARS-CoV-2 (COVID-19) RNA [Presence] in Respiratory specimen by REGINA with probe detection [facility] This lab was ordered by [facility] and reported by [employer]. Procedure Social History Code Duration Value Status Description Data Source(s ) Alcohol intake 12/03/2020 12:00:00 AM EDT Current non-d carlos of alcohol (finding) completed Current non-drinker of alcohol (finding) [facility] Tobacco use and exposure 12/03/2020 12:00:00 AM EDT Never used co mpleted Never used [facility] Smoking 12/03/2020 12:00:00 AM EDT Never smoker completed Never s deker [facility] Alcohol intake 06/06/2020 12:00:00 AM EDT Current non-d carlos of alcohol (finding) completed Current non-drinker of alcohol (finding) [facility] Alcohol intake 04/09/2020 12:00:00 AM EST Current non-d carlos of alcohol (finding) completed Current non-drinker of alcohol (finding) [facility] Smoking 12/09/2019 12:00:00 AM EDT Unknown if ever smoked comp leted Unknown if ever smoked [facility] Vital Signs ID Date Data Source UNK Name Value Range Interpretation Code Description Data Source(s) Systolic blood pressure 132 mm[Hg] 132 mm[Hg] M EDENT ([facility], ) Diastolic blood pressure 86 mm[Hg] 86 mm[Hg] MEDENT ([facility]) Body height 63 [in_i] 63 [in_i] [facility] ([facility]) 5'3" Body weight 254.00 [lb_av] 254.00 [lb_av] MEDEN T ([facility]) Body mass index (BMI) [Ratio] 45.0 kg/m2 45.0 k g/m2 [facility] ([facility]) [place] body weight 115 [lb_av] 115 [[facility]_av[facility] Body weight 115.214 kg 115.214 kg [facility] ([facility]) Body surface area Derived from formula 2.14 m2 2.14 m2 [facility] ([facility]) ID Date Data Source [id number] 07/11/2020 08:56:43 PM [facility] Name Value Range Interpretation Code Description Data Source(s) WEIGHT RECORDED 278 lb 278 lb [facility] Body height Measured 63 in 63 in [facility] ID Date Data Source [id number] 06/06/2020 12:06:06 PM T [facility] Name Value Range Interpretation Code Description Data Source(s) WEIGHT RECORDED 278 lb 278 lb [facility] Body height Measured 63 in 63 in [facility] ID Date Data Source [id number] 04/09/2020 03:20:42 PM [facility] Value Range Interpretation Code Description Data Source(s) WEIGHT RECORDED 276 lb 276 lb [facility] Body height Measured 63 in 63 in [facility] Patient Treatment Plan of Care Planned Activity Planned Date Details Description Data Source (s) anastrozole 1 MG Oral Tablet 03/07/2020 12:00:00 AM [facility]
--- OUTSIDE RECORDS SUMMARY | 2021-01-21 11:50 | CCD | Continuity of Care Document ---
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 AUTM [phone] No PCP AUTM Unavailable Problems Active Problems Provider Date Allergic asthma without status asthmaticus Adan monge DO Onset: 04/23/2012 Gallbladder calculus with acute cholecystitis and no o bstruction Adan Cook, Onset: 06/02/2012 Social History Type Date Description Comments Sex Unknown ETOH Use Occasionally consumes alcohol Tobacco Use Start: Unknown Non Smoker Allergies, Adverse Reactions, Alerts Active Allergies Criticality Reaction | Severity Comments [...] lb BMI (Body Mass Index) 45.0 kg/m2 [place] Body Weight 115 lb Weight 115.214 kg BSA (Body Surface Area) 2.14 m2 01/04/2019 9:19am BP Systolic 138 mmHg BP Diastolic 81 mmHg Height 63 inches 5'3" Weight 260.00 lb BMI (Body Mass Index) 46.1 kg/m2 [place] Body Weight 115 lb Weight 117.936 kg BSA (Body Surface Area) 2.16 m2 Results Description No Information Available Procedures Description No Information Available Medical Devices Description No Information Available Encounters Description No Information Available Assessments Date Code Description Provider 11/28/2020 K62.5 [...] Brown Jr, MD vaginal/rectal bleeding Created 0 [facility] [address] [place] [address] [phone]
[2021-01-21] MEDS ORDERED: fentaNYL 100 MCG/2 ML INJECTION (J3010) As Ordered ONE (13:19)
[2021-01-21] MEDS ORDERED: LIDOCAINE 2% 100MG/5ML SDV (FOR ANES.) As Ordered ONE (13:19)
[2021-01-21] MEDS ORDERED: propofoL 500 MG/50 ML VIAL As Ordered ONE (13:19)
--- NOTE | 2021-01-21 14:13 | ROOR ---
Patient Name: Karin Resendiz Procedure Date: 01/21/2021 1:27 PM Date of : 1985 Age: 35 Room: [facility] Gender: Female Note Status: Finalized Procedure: Upper GI endoscopy Indications: Abnormal CT of the GI tract Providers: Gino Luna MD Referring MD: Jesse Brown MD, Sameer Hamilton Md Requesting Provider: Medicines: Monitored Anesthesia Care Complications: No immediate complications. Procedure: Pre-Anesthesia Assessment: - The heart rate, respiratory rate, oxygen saturations, blood pressure, adequacy of pulmonary ventilation, and response to care were monitored throughout the procedure. The Endoscope was introduced through the mouth, and advanced to the second part of duodenum. The upper GI endoscopy was accomplished without difficulty. The patient tolerated the procedure well. Findings: A large ulcerated friable mass with no active bleeding was found in the duodenal bulb and in the first portion of the duodenum. Biopsies were taken with a cold forceps for histology. A deformity was found in the gastric antrum. The exam was otherwise without abnormality. Impression: - Ulcerated circumferential friable mass in pylorus/first portion of duodenum. There is moderate gastric outlet stenosis/restriction, the scope passes with gentle pressure. Biopsied. - The examination was otherwise normal. Recommendation: - Await pathology results. - Use Prilosec (omeprazole) 40 mg PO BID. - Use sucralfate tablets 1 gram PO QID. - Return to my office in 2 weeks. - (the script was sent to your pharmacy on file) Procedure Code(s): --- Professional --- 83338, Esophagogastroduodenoscopy, flexible, transoral; with biopsy, single or multiple Diagnosis Code(s): --- Professional --- R93.3, Abnormal findings on diagnostic imaging of other parts of digestive tract K31.89, Other diseases of stomach and duodenum CPT copyright 2019 [employer]. All rights reserved. The codes documented in this report are preliminary and upon shuttle spotter review may be revised to meet current compliance requirements. Gino Luna MD Gino Luna MD 01/21/2021 2:12:33 PM Electronically signed by Gino Luna MD Number of Addenda: 0 Note Initiated On: 01/21/2021 1:27 PM Estimated Blood Loss: Estimated blood loss: none.
[2021-01-21 14:25] VITALS: BP 134/95
== END 2021-01-21 14:56 | disposition home or self-care (01) ==
LOC: M OPP 11:46
PROVIDERS: ATTEND Internal Medicine Gastroenterology
DX: C56.9 Malignant neoplasm of unspecified ovary (principal); R93.3 Abnormal findings on diagnostic imaging of other parts of digestive tract; K31.89 Other diseases of stomach and duodenum; Z85.028 Personal history of other malignant neoplasm of stomach; Z86.711 Personal history of pulmonary embolism; Z90.710 Acquired absence of both cervix and uterus; Z88.1 Allergy status to other antibiotic agents; Z79.899 Other long term (current) drug therapy
CPT/HCPCS: 43239; 88305; J3010

== ENCOUNTER → 2021-02-15 | Outpatient (CLI) | payer BC ==
[~2021-02-15] MED LIST changes: -NS 1,000 ML IV ONE
--- NOTE | 2021-02-15 11:37 | RADONC.CN ---
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 She has developed a 7 cm mass in the distal stomach/proximal duodenum which is causing her early satiety, abdominal pain, nausea, and vomiting. She has a colostomy. She is seen today for a discussion of palliative RT. Diagnosis/Treatment History Oncologic History 11/24/13: Diagnosed with low grade papillary serous ovarian carcinoma left ovary s/p TLH/BSO [id number] stage IIIC 10/21/14: Completed carbo/taxol x 6 cycles 08/27/18: Surgical debulking and colostomy --> M1b stage IVB 09/06/18: Started anastrozole 06/05/20: PET-CT Pelvic ned implants 09/19/20: CT abdomen pelvis Vaginal cuff mass 4.4 cm. 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 No appetite. Has nausea, post-prandial, varies from 1-2 times daily to >10 times daily. Has vomiting on occasion, sometimes bloody. Has epigastric pain which fluctuates, sometimes debilitating, other times milder. Has good ostomy output, no black stool or blood in stool. Past Medical History: As above Past Surgical History: Appendectomy Cholecystectomy C section Family History: No family history of cancer Social History: Never smoker Never drinker Allergies / Meds Allergies: Coded Allergies: cephalexin (Verified Allergy, Severe, migraine and chest tightness, 01/17/21) Home Meds Active Scripts Hydrocodone/Acetaminophen (Hydrocodone-Acetamin 5-325 mg) 1 Each Tablet, 1-2 TAB PO Q4-6HP PRN for pain MDD 12 Tablet(s) for 3 Days, #60 TAB Prov:RADHA ALMONTE MD 02/08/21 Ondansetron (Ondansetron Odt) 4 Mg Tab.rapdis, 1 TAB PO Q6-8HP PRN for nausea/vomiting for 4 Days, #16 TAB Prov:RADHA ALMONTE MD 01/11/21 Anastrozole (Anastrozole) 1 Mg Tablet, 1 TAB PO DAILY for 90 Days, #90 TAB 3 Refills Prov:MARY CHANDLER MD 03/06/20 Reported Medications Omeprazole (Omeprazole) 40 Mg Capsule.dr, 1 CAP PO DAILY for 30 Days, #30 CAP 02/15/21 Review of Systems Constitutional: Reports: Fatigue, Weight Loss; Denies: Normal appetite HEENT: Denies: Head Aches Gastrointestinal: Reports: Nausea, Vomiting, Abdominal Pain; Denies: Melena, Hematochezia Hematologic: Denies: Bruising, Bleeding Excessively Musculoskeletal: Denies: Neck pain, Back pain Neurological: Denies: Weakness, Numbness Psych: Reports: Mood Normal Vital Signs Ht 63" Wt 224 lbs BMI 40 T 97.3 P 99 RR 20 BP 134/78 O2 99% Pain 3 Fatigue 3 General Exam: Alert, Cooperative, No Acute Distress Eye Exam: PERRLA EOMI ENT EXAM: Atraumatic Neck Exam: Supple Chest Exam: Clear to auscultation, Normal air movement Heart Exam: Rate Normal, Regular Rhythm Abdomen Exam: Soft, Tenderness Extremity Exam: Negative: Edema Skin Exam: Nl turgor and temperature Neuro Exam: Normal Gait, Normal Speech, Cranial Nerves 3-12 NL Psych Exam: Mental status NL Diagnostic and Laboratory Diagnostic Review Radiologic images, relevant labs and pathology reports were personally reviewed and discussed with Ms. Resendiz. Assessment and Plan Impression Ms. Resendiz is a 35 year old female with a history of metastatic low-grade papillary serous ovarian carcinoma. She has developed a 7 cm mass in the distal stomach/proximal duodenum which is causing her early satiety, abdominal pain, nausea, and vomiting. She has a colostomy. She is seen today for a discussion of palliative RT. Stage Left ovarian low grade papillary serous carcinoma [id number] stage IVB Performance Status ECOG 1 Plan We had an extensive discussion with Ms. Resendiz regarding the diagnosis at hand and available therapeutic options. She is young and her disease despite its metastatic nature, tends to have a prolonged course. Her main bother is the partially obstructing 7 cm distal stomach/duodenal mass. I explained that surgery if feasible would offer the best chance at normalization of her GI function. Whether a Whipple or Desiree-en-Y or distal gastrectomy would suffice to deal with the lesion would be a matter of soliciting a surgical oncology opinion. To this end she has been referred to [facility] and [facility]. If she is not able to obtain timely opinions from those centers, I offered to set her up with surgical oncology @ [facility] where I have connections. If she is not a surgical candidate (as Dr. Brown her Gynecologic Oncologist asserted, per Karin's recount), then I would offer palliative RT, I would give 30 Gy in 5 fractions with 4DCT/ITV/DCA planning and daily CBCT to verify setup, given the fluctuations in bowel position from day-to-day. We discussed the logistics of receiving radiation therapy in detail including the need for a 1-time planning session. We reviewed the side effects of RT, increased fatigue, nausea, increased ostomy output, surgical complications, and very rarely bowel stricture or perforation. After discussing the risks, benefits and alternatives to radiation therapy, Ms. Resendiz was amenable to considering RT as an alternative to surgery if the latter is deemed infeasible. All questions were answered to the patient's satisfaction. We instructed the patient that if there were any questions,concerns or changes in clinical status in the interim to contact us. Recommendations Recommend surgical oncology opinion Will facilitate for her if she is unable to get timely appointments @ [facility] or [facility] Surgery preferred over RT If no surgical option then would proceed with RT as described above Telehealth f/u in 1 month Billing Statement Total time of [50] minutes was spent preparing for the visit [3], obtaining HPI [7], examining the patient [3], reviewing diagnostic tests [6], discussing management options [18], coordinating care [3], and writing this note [10]. KARI TAPIA MD Feb 15, 2021 11:37
== END ==
LOC: M ONCR 10:12
PROVIDERS: ATTEND General Practice
DX: C56.2 Malignant neoplasm of left ovary (principal); C78.4 Secondary malignant neoplasm of small intestine; Z92.3 Personal history of irradiation; Z88.1 Allergy status to other antibiotic agents; Z79.899 Other long term (current) drug therapy

== ENCOUNTER 2021-03-03 14:53 | Emergency (ER) | payer BC ==
[~2021-03-03] VITALS: Ht 160 cm; Wt 96.8 kg
[~2021-03-03 14:53] MED LIST changes: +POTA-151 PO; -POTA20TA6 PO
[2021-03-03] MEDS ORDERED: ONDANSETRON 4MG/2ML VIAL IV ONE (16:25)
[2021-03-03] MEDS ORDERED: NS 1,000 ML IV ONE (16:25)
[2021-03-03 16:45] LABS: HEMATOCRIT 42.3 % (36.0-47.0); HEMOGLOBIN 13.4 g/dl (12.0-15.5); MEAN CORPUSCULAR HEMOGLOBIN 25.6 pg (27.0-33.0); MEAN CORPUSCULAR HGB CONC 31.7 g/dl (32.0-36.5); MEAN CORPUSCULAR VOLUME 80.9 fl (80.0-96.0); PLATELET COUNT, AUTOMATED 362 10^3/uL (150-450); RED BLOOD COUNT 5.23 10^6/uL (4.00-5.40); WHITE BLOOD COUNT 5.8 10^3/uL (4.0-10.0)
[2021-03-03 17:19] LABS: BLOOD UREA NITROGEN 9 MG/DL (7-18); CALCIUM LEVEL 8.9 MG/DL (8.5-10.1); CARBON DIOXIDE LEVEL 28 MEQ/L (21-32); CHLORIDE LEVEL 99 MEQ/L (98-107); CREATININE FOR GFR 0.74 MG/DL (0.55-1.30); GLOMERULAR FILTRATION RATE > 60.0 (>60); GLUCOSE, FASTING 95 MG/DL (70-100); POTASSIUM SERUM 3.4 MEQ/L (3.5-5.1); SODIUM LEVEL 138 MEQ/L (136-145)
[2021-03-03 17:52] VITALS: BP 129/82
[2021-03-13] MEDS ORDERED: FENT12DI12 TOP (12:22)
[2021-03-13] MEDS ORDERED: MORP20SO PO (16:24)
[2021-03-17] MEDS ORDERED: FENT1DIS14 TD (15:24)
[2021-03-27] MEDS ORDERED: TRAN1DIS4 TOP (11:36)
[2021-03-27] MEDS ORDERED: PROM50TA4 PO (11:36)
[2021-03-28] MEDS ORDERED: [UNRECOGNIZED DRUG - OTHER] IM (17:37)
[2021-03-28] MEDS ORDERED: [UNRECOGNIZED DRUG - CODE] IM (17:37)
[2021-03-28] MEDS ORDERED: [UNRECOGNIZED DRUG - CODE] IM (17:43)
[2021-04-01] MEDS ORDERED: FENT1PAT25 TD (09:20)
[2021-04-01] MEDS ORDERED: MORP1SOL PO (11:46)
[2021-04-01] MEDS ORDERED: FENT1DIS14 TD (11:46)
[2021-04-01] MEDS ORDERED: TRAN1DIS4 TOP (11:46)
[2021-04-01] MEDS ORDERED: HYDR-3713 PO (16:07)
[2021-04-02] MEDS ORDERED: FENT1DIS14 TD (14:20)
== END 2021-03-03 18:10 | disposition home or self-care (01) ==
LOC: M ED 14:53
DX: N93.9 Abnormal uterine and vaginal bleeding, unspecified (principal); C56.9 Malignant neoplasm of unspecified ovary; Z88.1 Allergy status to other antibiotic agents; Z79.899 Other long term (current) drug therapy
CPT/HCPCS: 80048; 85027; 86850; 86900; 86901; 96361; 96374; 99284; J2405

== ENCOUNTER 2021-03-10 10:34 | Emergency (ER) | payer BC ==
[~2021-03-10] VITALS: Ht 160 cm; Wt 90.0 kg
[~2021-03-10 10:34] MED LIST changes: -POTA-151 PO; +POTA20TA6 PO
[2021-03-10] MEDS ORDERED: MORPHINE 2 MG/ML 1ML VIAL (J2270) IV ONE (11:45)
[2021-03-10] MEDS ORDERED: NS 1,000 ML IV ONE ×2 (11:45)
[2021-03-10] MEDS ORDERED: ONDANSETRON 4MG/2ML VIAL IV ONE ×2 (11:45→15:50)
--- NOTE | 2021-03-10 12:16 | REP ---
INDICATION: left lower quadrant abdominal pain. COMPARISON: 12/31/2020 TECHNIQUE: Axial noncontrast images from the lung bases to the pubic symphysis with coronal and sagittal reformations. This CT examination was performed using the following dose reduction techniques: Automated exposure control, adjustment of mA and/or kv according to the patient's size, and use of iterative reconstruction technique. FINDINGS: Lung bases are clear. There is a moderate, but increased amount of predominately upper abdominal and perihepatic ascites which demonstrates significantly scalloped mass effect on the underlying liver contour and there appears to be areas of irregular soft tissue in the upper abdomen as well as the left mid abdomen highly suspicious for malignancy and metastatic disease. Patient gives a history of ovarian carcinoma. Calcified lesions in the right lower abdomen and deep pelvis as well as along the posterior aspect of the right hepatic lobe and few scattered within the abdomen and pelvis are again noted and consistent with chronic metastases. Spleen, pancreas, bilateral adrenal glands and kidneys are otherwise unchanged in their appearance. There is no evidence for perinephric stranding or hydronephrosis. The enteric system is incompletely evaluated due to surrounding ascites and lack of both intravenous and intraluminal contrast. There is evidence for ostomy via the left anterior abdominal wall and no evidence for obstruction or definite acute focal inflammatory process to the bowel. Pelvis demonstrates relatively normal bladder and postsurgical changes as well as the above-mentioned large partially calcified nodular metastatic/malignant focus. The abdominal aorta is without aneurysm. Scattered retroperitoneal lymph nodes are unchanged and suspicious for pathology. Skeletal structures are intact and without obvious focal abnormality/lesion. IMPRESSION: 1. There is increased amount of upper abdominal ascites with increased scalloped mass effect along the liver contour as well as suspicions for underlying acute and chronic metastases. Further evaluation is significantly limited due to the lack of intravenous and intraluminal contrast. However, no further significant acute process is identified. <Electronically signed by Mynor Moreira > 03/10/21 [id number]
[2021-03-10 12:26] LABS: BASO % 0.5 % (0.0-1.0); EOS % 0.2 % (0.0-3.0); HEMATOCRIT 47.4 % (36.0-47.0); HEMOGLOBIN 15.2 g/dl (12.0-15.5); LYMPH # 0.6 10^3/uL (1.5-5.0); LYMPH % 11.2 % (24.0-44.0); MEAN CORPUSCULAR HEMOGLOBIN 25.9 pg (27.0-33.0); MEAN CORPUSCULAR HGB CONC 32.1 g/dl (32.0-36.5); MEAN CORPUSCULAR VOLUME 80.6 fl (80.0-96.0); MONO # 0.5 10^3/uL (0.0-0.8); MONO % 7.9 % (2.0-8.0); NEUTROPHILS # 4.6 10^3/uL (1.5-8.5); NEUTROPHILS % 79.8 % (36.0-66.0); PLATELET COUNT, AUTOMATED 346 10^3/uL (150-450); RED BLOOD COUNT 5.88 10^6/uL (4.00-5.40); WHITE BLOOD COUNT 5.7 10^3/uL (4.0-10.0)
[2021-03-10 12:52] LABS: ALBUMIN 3.2 GM/DL (3.2-5.2); ALT/SGPT 19 U/L (12-78); BILIRUBIN,TOTAL 0.7 MG/DL (0.2-1.0); BLOOD UREA NITROGEN 17 MG/DL (7-18); CALCIUM LEVEL 9.4 MG/DL (8.5-10.1); CARBON DIOXIDE LEVEL 27 MEQ/L (21-32); CHLORIDE LEVEL 97 MEQ/L (98-107); CREATININE FOR GFR 0.79 MG/DL (0.55-1.30); GLOMERULAR FILTRATION RATE > 60.0 (>60); GLUCOSE, FASTING 108 MG/DL (70-100); LIPASE 60 U/L (73-393); POTASSIUM SERUM 3.4 MEQ/L (3.5-5.1); SODIUM LEVEL 140 MEQ/L (136-145); TOTAL PROTEIN 8.4 GM/DL (6.4-8.2)
[2021-03-10] MEDS ORDERED: ONDA4TAB6 PO (14:24)
[2021-03-10] MEDS ORDERED: KETOROLAC 30 MG/ML 1ML VIAL IV ONE (14:40)
[2021-03-10] MEDS ORDERED: ONDANSETRON 4 MG ORAL DISINTEGRATING TAB PO ONE (15:35)
[2021-03-10 15:59] VITALS: BP 119/78
--- NOTE | 2021-03-11 19:50 | ED PDOC ---
Post-Departure Follow-Up certiified letter sent to pt re formal read of ct abd/p . obtain pcp or heme-onc name and fax. Delonte Egan MD Mar 11, 2021 19:50
[2021-03-13] MEDS ORDERED: FENT12DI12 TOP (12:22)
[2021-03-13] MEDS ORDERED: MORP20SO PO (16:24)
== END 2021-03-10 16:57 | disposition home or self-care (01) ==
LOC: M ED 10:34
DX: R10.9 Unspecified abdominal pain (principal); R11.2 Nausea with vomiting, unspecified; G89.3 Neoplasm related pain (acute) (chronic); C56.9 Malignant neoplasm of unspecified ovary; K21.9 Gastro-esophageal reflux disease without esophagitis; Z79.899 Other long term (current) drug therapy; Z88.1 Allergy status to other antibiotic agents
CPT/HCPCS: 74176; 80053; 83605; 83690; 85025; 87040; 96361; 96374; 96375; 96376; 99283; J1885; J2270; J2405; Q0162

== ENCOUNTER → 2021-04-01 | Outpatient (REF) | payer BC ==
[~2021-04-01] MED LIST changes: +FENT12DI12 TOP; +FENT1DIS14 TD; +FENT1PAT25 TD; +MORP1SOL PO; +MORP20SO PO; +POTA-151 PO; -POTA20TA6 PO; +PROM50TA4 PO; +TRAN1DIS4 TOP; +[UNRECOGNIZED DRUG - CODE] IM; +[UNRECOGNIZED DRUG - CODE] IM; +[UNRECOGNIZED DRUG - OTHER] IM
[2021-04-01 13:37] LABS: BASO % 0.4 % (0.0-1.0); EOS % 0.4 % (0.0-3.0); HEMATOCRIT 32.7 % (36.0-47.0); HEMOGLOBIN 10.5 g/dl (12.0-15.5); LYMPH # 0.5 10^3/uL (1.5-5.0); LYMPH % 10.5 % (24.0-44.0); MEAN CORPUSCULAR HEMOGLOBIN 28.8 pg (27.0-33.0); MEAN CORPUSCULAR HGB CONC 32.1 g/dl (32.0-36.5); MEAN CORPUSCULAR VOLUME 89.8 fl (80.0-96.0); MONO # 0.3 10^3/uL (0.0-0.8); MONO % 6.2 % (2.0-8.0); NEUTROPHILS % 82.1 % (36.0-66.0); PLATELET COUNT, AUTOMATED 274 10^3/uL (150-450); RED BLOOD COUNT 3.64 10^6/uL (4.00-5.40); WHITE BLOOD COUNT 4.9 10^3/uL (4.0-10.0)
[2021-04-01 14:31] LABS: ALBUMIN 2.3 GM/DL (3.2-5.2); ALT/SGPT 31 U/L (12-78); BILIRUBIN,TOTAL 0.3 MG/DL (0.2-1.0); BLOOD UREA NITROGEN 18 MG/DL (7-18); CALCIUM LEVEL 7.9 MG/DL (8.5-10.1); CARBON DIOXIDE LEVEL 34 MEQ/L (21-32); CHLORIDE LEVEL 94 MEQ/L (98-107); CREATININE FOR GFR 0.49 MG/DL (0.55-1.30); GLOMERULAR FILTRATION RATE > 60.0 (>60); GLUCOSE, FASTING 81 MG/DL (70-100); MAGNESIUM LEVEL 2.3 MG/DL (1.8-2.4); PHOSPHORUS LEVEL 3.3 MG/DL (2.5-4.9); POTASSIUM SERUM 3.5 MEQ/L (3.5-5.1); SODIUM LEVEL 134 MEQ/L (136-145); TOTAL PROTEIN 5.9 GM/DL (6.4-8.2); TRIGLYCERIDES LEVEL 130 MG/DL (<150)
== END ==
LOC: M LAB REF 12:54
PROVIDERS: ATTEND General Practice
DX: E44.0 Moderate protein-calorie malnutrition (principal); C56.3 Malignant neoplasm of bilateral ovaries; R62.7 Adult failure to thrive

== ENCOUNTER 2021-04-03 12:03 | Outpatient (RCR) | payer BC ==
[2021-04-03] MEDS ORDERED: LIDO2SOL17 PO (12:56)
[2021-04-06] MEDS ORDERED: OCTR100I IV (10:04)
[2021-04-06] MEDS ORDERED: FENT1DIS14 TD (10:04)
[2021-04-06] MEDS ORDERED: [UNRECOGNIZED DRUG - CODE] IM ×2 (10:04→14:21)
[2021-04-06] MEDS ORDERED: Dexamethasone IV (10:09)
[2021-04-06] MEDS ORDERED: DEXA1CON PO (11:20)
== END 2021-04-08 ==
LOC: M ONCR 12:03
PROVIDERS: ATTEND General Practice
DX: C56.9 Malignant neoplasm of unspecified ovary (principal)

== ENCOUNTER 2021-04-05 16:05 | Inpatient (IN) | payer BC ==
[~2021-04-05] VITALS: Ht 160 cm; Wt 90.0 kg
[~2021-04-05 16:05] MED LIST changes: +LIDO2SOL17 PO
[2021-04-05 17:38] VITALS: BP 106/64
[2021-04-05] MEDS ORDERED: ALTEPLASE 2MG/2ML VIAL XX ONE (17:55)
[2021-04-05] MEDS ORDERED: HOME MED LIST COMPLETE! XX SCH (18:45)
[2021-04-05] MEDS ORDERED: MORPHINE 2 MG/ML 1ML VIAL (J2270) IV PRN (19:05)
[2021-04-05] MEDS ORDERED: MAGIC MOUTHWASH SUSPENSION BTL SS PRN (19:05)
[2021-04-05 19:14] LABS: HEMATOCRIT 33.1 % (36.0-47.0); HEMOGLOBIN 10.7 g/dl (12.0-15.5); MEAN CORPUSCULAR HEMOGLOBIN 28.6 pg (27.0-33.0); MEAN CORPUSCULAR HGB CONC 32.3 g/dl (32.0-36.5); MEAN CORPUSCULAR VOLUME 88.5 fl (80.0-96.0); PLATELET COUNT, AUTOMATED 291 10^3/uL (150-450); RED BLOOD COUNT 3.74 10^6/uL (4.00-5.40); WHITE BLOOD COUNT 3.1 10^3/uL (4.0-10.0)
[2021-04-05 19:25] LABS: PROTHROMBIN TIME 13.6 SECONDS (12.7-14.5)
[2021-04-05 19:34] LABS: ALBUMIN 2.4 GM/DL (3.2-5.2); ALT/SGPT 16 U/L (12-78); BILIRUBIN,TOTAL 0.3 MG/DL (0.2-1.0); BLOOD UREA NITROGEN 16 MG/DL (7-18); CALCIUM LEVEL 8.6 MG/DL (8.5-10.1); CARBON DIOXIDE LEVEL 37 MEQ/L (21-32); CHLORIDE LEVEL 89 MEQ/L (98-107); CREATININE FOR GFR 0.64 MG/DL (0.55-1.30); GLOMERULAR FILTRATION RATE > 60.0 (>60); GLUCOSE, FASTING 86 MG/DL (70-100); POTASSIUM SERUM 2.6 MEQ/L (3.5-5.1); SODIUM LEVEL 131 MEQ/L (136-145); TOTAL PROTEIN 6.8 GM/DL (6.4-8.2)
[2021-04-05 20:00] VITALS: BP 112/72
[2021-04-05] MEDS ORDERED: POTASSIUM CHLORIDE 10% LIQ 20 MEQ/15 ML UDC PO SCH (20:00)
[2021-04-05] MEDS ORDERED: PANTOPRAZOLE 40MG VIAL (C9113 PER 1) IV SCH (20:00)
[2021-04-05] MEDS: PROMETHAZINE INJ 25 MG/ML VIAL (J2550) IV PRN (20:48)
[2021-04-05] MEDS ORDERED: fentaNYL 50 MCG/HR PATCH TOP SCH (21:00)
[2021-04-05] MEDS ORDERED: FENTANYL REMOVAL DOCUMENTATION MISC XX SCH (21:00)
[2021-04-05] MEDS ORDERED: KCL 10MEQ/100ML SWI (KRUN) 10 MEQ in IV 1 EA IV SCH (21:00)
[2021-04-05] MEDS ORDERED: POTASSIUM CHLORIDE 10MEQ SR TABLET PO ONE (21:00)
[2021-04-05] MEDS ORDERED: OCTREOTIDE ACETATE 1,200 MCG in NS 238.8 ML IV SCH (22:00)
[2021-04-05] MEDS ORDERED: HALOPERIDOL 5MG/ML VIAL (J1630 PER 1) IV PRN (22:00)
[2021-04-05] MEDS ORDERED: fentaNYL 100 MCG/2 ML INJECTION IV PRN (22:00)
[2021-04-05] MEDS: dexameTHASONE 4 MG/ML 1ML VIAL (J1100 PER 1MG) IV SCH (22:05)
[2021-04-05] MEDS: KCL 20MEQ IN 100ML SWI (KRUN) 20 MEQ in IV 1 EA IV SCH ×4 (22:06→23:26)
[2021-04-05] MEDS ORDERED: NALOXONE INJ 0.4MG/1ML VIAL (J2310 PER 1MG) IV PRN (23:55)
[2021-04-06] VITALS: BP 112/71
[2021-04-06] MEDS: KCL 20MEQ IN 100ML SWI (KRUN) 20 MEQ in IV 1 EA IV SCH ×2 (00:27)
[2021-04-06 00:58] LABS: BLOOD UREA NITROGEN 14 MG/DL (7-18); CALCIUM LEVEL 8.3 MG/DL (8.5-10.1); CARBON DIOXIDE LEVEL 33 MEQ/L (21-32); CHLORIDE LEVEL 91 MEQ/L (98-107); CREATININE FOR GFR 0.76 MG/DL (0.55-1.30); GLOMERULAR FILTRATION RATE > 60.0 (>60); GLUCOSE, FASTING 270 MG/DL (70-100); POTASSIUM SERUM 4.2 MEQ/L (3.5-5.1); SODIUM LEVEL 129 MEQ/L (136-145)
[2021-04-06 04:00] VITALS: BP 113/67
[2021-04-06] MEDS: dexameTHASONE 4 MG/ML 1ML VIAL (J1100 PER 1MG) IV SCH ×2 (04:54→09:56)
[2021-04-06] MEDS: PROMETHAZINE INJ 25 MG/ML VIAL (J2550) IV PRN ×2 (05:19→11:39)
[2021-04-06 07:35] VITALS: BP 115/71
[2021-04-06 07:41] LABS: BASO % 0.4 % (0.0-1.0); HEMATOCRIT 30.9 % (36.0-47.0); HEMOGLOBIN 10.2 g/dl (12.0-15.5); LYMPH # 0.2 10^3/uL (1.5-5.0); MEAN CORPUSCULAR HEMOGLOBIN 29.4 pg (27.0-33.0); MONO # 0.1 10^3/uL (0.0-0.8); MONO % 4.4 % (2.0-8.0); NEUTROPHILS # 2.2 10^3/uL (1.5-8.5); PLATELET COUNT, AUTOMATED 273 10^3/uL (150-450); RED BLOOD COUNT 3.47 10^6/uL (4.00-5.40); WHITE BLOOD COUNT 2.5 10^3/uL (4.0-10.0)
[2021-04-06 08:04] LABS: BLOOD UREA NITROGEN 16 MG/DL (7-18); CALCIUM LEVEL 8.4 MG/DL (8.5-10.1); CARBON DIOXIDE LEVEL 31 MEQ/L (21-32); CHLORIDE LEVEL 93 MEQ/L (98-107); CREATININE FOR GFR 0.59 MG/DL (0.55-1.30); GLOMERULAR FILTRATION RATE > 60.0 (>60); GLUCOSE, FASTING 218 MG/DL (70-100); MAGNESIUM LEVEL 2.1 MG/DL (1.8-2.4); POTASSIUM SERUM 3.5 MEQ/L (3.5-5.1); SODIUM LEVEL 129 MEQ/L (136-145)
[2021-04-06] MEDS ORDERED: OCTR100I IV (10:04)
[2021-04-06] MEDS ORDERED: [UNRECOGNIZED DRUG - CODE] IM ×2 (10:04→14:21)
[2021-04-06] MEDS ORDERED: FENT1DIS14 TD (10:04)
[2021-04-06] MEDS ORDERED: Dexamethasone IV (10:09)
[2021-04-06] MEDS ORDERED: KCL 20MEQ IN 100ML SWI (KRUN) 20 MEQ in IV 1 EA IV ONE ×2 (11:00)
[2021-04-06] MEDS ORDERED: DEXA1CON PO (11:20)
[2021-04-07] MEDS ORDERED: dexameTHASONE 20MG/5ML VIAL (J1100 PER 1MG) IV SCH (09:00)
[2021-04-07] MEDS ORDERED: SCOPOLAMINE 1MG TRANSDERMAL PATCH TOP SCH (09:00)
== END 2021-04-06 14:30 | disposition home health service (06) | DRG 206 ==
LOC: M PCU 16:58
PROVIDERS: ADMIT Internal Medicine Nephrology; ATTEND Internal Medicine
DX: T82.898A Other specified complication of vascular prosthetic devices, implants and grafts, initial encounter (principal); Z86.711 Personal history of pulmonary embolism; J45.909 Unspecified asthma, uncomplicated; Z92.3 Personal history of irradiation; Z92.21 Personal history of antineoplastic chemotherapy; Z90.79 Acquired absence of other genital organ(s); C56.9 Malignant neoplasm of unspecified ovary; Z90.49 Acquired absence of other specified parts of digestive tract; Z79.899 Other long term (current) drug therapy; Z88.1 Allergy status to other antibiotic agents; R11.2 Nausea with vomiting, unspecified; G89.3 Neoplasm related pain (acute) (chronic); Z20.822 Contact with and (suspected) exposure to COVID-19

== ENCOUNTER → 2021-04-15 | Outpatient (REF) | payer BC ==
[~2021-04-15] MED LIST changes: +DEXA1CON PO; +Dexamethasone IV; +OCTR100I IV
[2021-04-15 14:22] LABS: HEMATOCRIT 29.2 % (36.0-47.0); HEMOGLOBIN 9.6 g/dl (12.0-15.5); MEAN CORPUSCULAR HEMOGLOBIN 30.3 pg (27.0-33.0); MEAN CORPUSCULAR HGB CONC 32.9 g/dl (32.0-36.5); MEAN CORPUSCULAR VOLUME 92.1 fl (80.0-96.0); PLATELET COUNT, AUTOMATED 169 10^3/uL (150-450); RED BLOOD COUNT 3.17 10^6/uL (4.00-5.40); WHITE BLOOD COUNT 1.6 10^3/uL (4.0-10.0)
[2021-04-15 14:43] LABS: ALBUMIN 2.1 GM/DL (3.2-5.2); ALT/SGPT 208 U/L (12-78); BILIRUBIN,TOTAL 0.4 MG/DL (0.2-1.0); BLOOD UREA NITROGEN 16 MG/DL (7-18); CALCIUM LEVEL 7.6 MG/DL (8.5-10.1); CARBON DIOXIDE LEVEL 24 MEQ/L (21-32); CHLORIDE LEVEL 101 MEQ/L (98-107); CREATININE FOR GFR 0.42 MG/DL (0.55-1.30); GLOMERULAR FILTRATION RATE > 60.0 (>60); GLUCOSE, FASTING 89 MG/DL (70-100); PHOSPHORUS LEVEL 3.3 MG/DL (2.5-4.9); POTASSIUM SERUM 3.4 MEQ/L (3.5-5.1); SODIUM LEVEL 135 MEQ/L (136-145); TOTAL PROTEIN 5.4 GM/DL (6.4-8.2); TRIGLYCERIDES LEVEL 76 MG/DL (<150)
[2021-04-15 15:05] LABS: ATYPICAL LYMPH 1 % (0-5); BASOPHILS 1 % (0-1); LYMPHOCYTES 13 % (16-44); MONOCYTES 3 % (0-5); NEUTROPHILS 68 % (28-66); PLATELET ESTIMATE NORMAL (NORMAL)
[2021-04-15 15:06] LABS: ANISOCYTOSIS 1+
[2021-04-16 08:39] LABS: MAGNESIUM LEVEL 1.6 MG/DL (1.7-2.2)
== END ==
LOC: M LAB REF 13:19
PROVIDERS: ATTEND General Practice
DX: E44.0 Moderate protein-calorie malnutrition (principal); C56.3 Malignant neoplasm of bilateral ovaries; R62.7 Adult failure to thrive

== ENCOUNTER → 2021-04-22 | Outpatient (REF) | payer BC ==
[2021-04-22 14:52] LABS: HEMATOCRIT 27.3 % (36.0-47.0); MEAN CORPUSCULAR HEMOGLOBIN 30.2 pg (27.0-33.0); MEAN CORPUSCULAR VOLUME 91.6 fl (80.0-96.0); RED BLOOD COUNT 2.98 10^6/uL (4.00-5.40)
[2021-04-22 14:54] LABS: PLATELET COUNT, AUTOMATED 46 10^3/uL (150-450); WHITE BLOOD COUNT 0.3 10^3/uL (4.0-10.0)
[2021-04-22 15:17] LABS: ALT/SGPT 72 U/L (12-78); BILIRUBIN,TOTAL 0.3 MG/DL (0.2-1.0); BLOOD UREA NITROGEN 17 MG/DL (7-18); CALCIUM LEVEL 7.7 MG/DL (8.5-10.1); CARBON DIOXIDE LEVEL 23 MEQ/L (21-32); CHLORIDE LEVEL 104 MEQ/L (98-107); CREATININE FOR GFR 0.35 MG/DL (0.55-1.30); GLOMERULAR FILTRATION RATE > 60.0 (>60); GLUCOSE, FASTING 103 MG/DL (70-100); MAGNESIUM LEVEL 1.8 MG/DL (1.8-2.4); PHOSPHORUS LEVEL 2.7 MG/DL (2.5-4.9); SODIUM LEVEL 135 MEQ/L (136-145); TOTAL PROTEIN 5.6 GM/DL (6.4-8.2); TRIGLYCERIDES LEVEL 83 MG/DL (<150)
[2021-04-22 15:26] LABS: ATYPICAL LYMPH 2 % (0-5); EOSINOPHILS 4 % (0-3); LYMPHOCYTES 12 % (16-44); MONOCYTES 4 % (0-5); NEUTROPHILS 60 % (28-66)
[2021-04-22 15:27] LABS: MICROCYTOSIS 1+; OVALOCYTES 1+; PLATELET ESTIMATE DECREASED (NORMAL)
== END ==
LOC: M LAB REF 14:32
PROVIDERS: ATTEND General Practice
DX: E44.0 Moderate protein-calorie malnutrition (principal); C56.3 Malignant neoplasm of bilateral ovaries; R62.7 Adult failure to thrive

== ENCOUNTER → 2021-04-29 | Outpatient (REF) | payer BC ==
[2021-04-29 15:01] LABS: HEMATOCRIT 24.9 % (36.0-47.0); HEMOGLOBIN 8.4 g/dl (12.0-15.5); MEAN CORPUSCULAR HGB CONC 33.7 g/dl (32.0-36.5); MEAN CORPUSCULAR VOLUME 88.9 fl (80.0-96.0); PLATELET COUNT, AUTOMATED 224 10^3/uL (150-450)
[2021-04-29 15:22] LABS: ALBUMIN 1.6 GM/DL (3.2-5.2); ALT/SGPT 83 U/L (12-78); BILIRUBIN,TOTAL 0.3 MG/DL (0.2-1.0); BLOOD UREA NITROGEN 12 MG/DL (7-18); CALCIUM LEVEL 7.3 MG/DL (8.5-10.1); CARBON DIOXIDE LEVEL 26 MEQ/L (21-32); CHLORIDE LEVEL 95 MEQ/L (98-107); GLOMERULAR FILTRATION RATE > 60.0 (>60); GLUCOSE, FASTING 105 MG/DL (70-100); MAGNESIUM LEVEL 1.7 MG/DL (1.8-2.4); PHOSPHORUS LEVEL 2.4 MG/DL (2.5-4.9); POTASSIUM SERUM 3.2 MEQ/L (3.5-5.1); SODIUM LEVEL 133 MEQ/L (136-145); TRIGLYCERIDES LEVEL 81 MG/DL (<150)
[2021-04-29 19:11] LABS: ATYPICAL LYMPH 2 % (0-5); BASOPHILS 1 % (0-1); LYMPHOCYTES 13 % (16-44); MONOCYTES 17 % (0-5); NEUTROPHILS 49 % (28-66)
[2021-04-29 19:12] LABS: ANISOCYTOSIS 2+; PLATELET ESTIMATE NORMAL (NORMAL)
[2021-04-29 19:13] LABS: TOXIC GRANULATION 2+
== END ==
LOC: M LAB REF 14:38
PROVIDERS: ATTEND General Practice
DX: E44.0 Moderate protein-calorie malnutrition (principal); C56.3 Malignant neoplasm of bilateral ovaries; R62.7 Adult failure to thrive

== ENCOUNTER → 2021-05-06 | Outpatient (REF) | payer BC ==
[2021-05-06 14:02] LABS: BASO % 1.2 % (0.0-1.0); HEMATOCRIT 28.9 % (36.0-47.0); HEMOGLOBIN 9.3 g/dl (12.0-15.5); LYMPH # 0.2 10^3/uL (1.5-5.0); LYMPH % 13.9 % (24.0-44.0); MEAN CORPUSCULAR HEMOGLOBIN 30.1 pg (27.0-33.0); MEAN CORPUSCULAR HGB CONC 32.2 g/dl (32.0-36.5); MEAN CORPUSCULAR VOLUME 93.5 fl (80.0-96.0); MONO # 0.1 10^3/uL (0.0-0.8); NEUTROPHILS # 1.2 10^3/uL (1.5-8.5); NEUTROPHILS % 72.8 % (36.0-66.0); PLATELET COUNT, AUTOMATED 504 10^3/uL (150-450); RED BLOOD COUNT 3.09 10^6/uL (4.00-5.40); WHITE BLOOD COUNT 1.7 10^3/uL (4.0-10.0)
[2021-05-06 15:10] LABS: ALBUMIN 1.8 GM/DL (3.2-5.2); ALT/SGPT 96 U/L (12-78); BILIRUBIN,TOTAL 0.2 MG/DL (0.2-1.0); BLOOD UREA NITROGEN 9 MG/DL (7-18); CALCIUM LEVEL 7.8 MG/DL (8.5-10.1); CARBON DIOXIDE LEVEL 27 MEQ/L (21-32); CHLORIDE LEVEL 101 MEQ/L (98-107); CREATININE FOR GFR 0.39 MG/DL (0.55-1.30); GLOMERULAR FILTRATION RATE > 60.0 (>60); GLUCOSE, FASTING 69 MG/DL (70-100); MAGNESIUM LEVEL 1.8 MG/DL (1.8-2.4); PHOSPHORUS LEVEL 3.4 MG/DL (2.5-4.9); POTASSIUM SERUM 3.9 MEQ/L (3.5-5.1); SODIUM LEVEL 135 MEQ/L (136-145); TOTAL PROTEIN 5.3 GM/DL (6.4-8.2); TRIGLYCERIDES LEVEL 131 MG/DL (<150)
== END ==
LOC: M LAB REF 13:13
PROVIDERS: ATTEND General Practice
DX: E44.0 Moderate protein-calorie malnutrition (principal); R62.7 Adult failure to thrive; C56.3 Malignant neoplasm of bilateral ovaries

== ENCOUNTER → 2021-05-13 | Outpatient (REF) | payer BC ==
[2021-05-13 13:49] LABS: BASO % 0.3 % (0.0-1.0); HEMATOCRIT 24.8 % (36.0-47.0); LYMPH # 0.1 10^3/uL (1.5-5.0); LYMPH % 2.4 % (24.0-44.0); MEAN CORPUSCULAR HEMOGLOBIN 30.2 pg (27.0-33.0); MEAN CORPUSCULAR HGB CONC 32.3 g/dl (32.0-36.5); MEAN CORPUSCULAR VOLUME 93.6 fl (80.0-96.0); MONO % 0.8 % (2.0-8.0); NEUTROPHILS # 3.5 10^3/uL (1.5-8.5); NEUTROPHILS % 95.4 % (36.0-66.0); PLATELET COUNT, AUTOMATED 106 10^3/uL (150-450); RED BLOOD COUNT 2.65 10^6/uL (4.00-5.40); WHITE BLOOD COUNT 3.7 10^3/uL (4.0-10.0)
[2021-05-13 14:19] LABS: ALBUMIN 1.9 GM/DL (3.2-5.2); ALT/SGPT 79 U/L (12-78); BILIRUBIN,TOTAL 0.3 MG/DL (0.2-1.0); BLOOD UREA NITROGEN 13 MG/DL (7-18); CARBON DIOXIDE LEVEL 25 MEQ/L (21-32); CHLORIDE LEVEL 101 MEQ/L (98-107); CREATININE FOR GFR 0.44 MG/DL (0.55-1.30); GLOMERULAR FILTRATION RATE > 60.0 (>60); GLUCOSE, FASTING 116 MG/DL (70-100); MAGNESIUM LEVEL 1.7 MG/DL (1.8-2.4); PHOSPHORUS LEVEL 2.2 MG/DL (2.5-4.9); POTASSIUM SERUM 3.8 MEQ/L (3.5-5.1); SODIUM LEVEL 135 MEQ/L (136-145); TOTAL PROTEIN 5.5 GM/DL (6.4-8.2); TRIGLYCERIDES LEVEL 86 MG/DL (<150)
== END ==
LOC: M LAB REF 13:19
PROVIDERS: ATTEND General Practice
DX: E44.0 Moderate protein-calorie malnutrition (principal); C56.3 Malignant neoplasm of bilateral ovaries; R62.7 Adult failure to thrive

== ENCOUNTER → 2021-05-20 | Outpatient (REF) | payer BC ==
[2021-05-20 13:18] LABS: HEMATOCRIT 24.1 % (36.0-47.0); HEMOGLOBIN 7.6 g/dl (12.0-15.5); MEAN CORPUSCULAR HEMOGLOBIN 30.5 pg (27.0-33.0); MEAN CORPUSCULAR HGB CONC 31.5 g/dl (32.0-36.5); MEAN CORPUSCULAR VOLUME 96.8 fl (80.0-96.0); PLATELET COUNT, AUTOMATED 177 10^3/uL (150-450); RED BLOOD COUNT 2.49 10^6/uL (4.00-5.40); WHITE BLOOD COUNT 3.5 10^3/uL (4.0-10.0)
[2021-05-20 13:48] LABS: LYMPHOCYTES 14 % (16-44); MONOCYTES 12 % (0-5); NEUTROPHILS 74 % (28-66)
[2021-05-20 13:49] LABS: ANISOCYTOSIS 2+; PLATELET ESTIMATE NORMAL (NORMAL)
[2021-05-20 14:02] LABS: ALBUMIN 1.9 GM/DL (3.2-5.2); ALT/SGPT 75 U/L (12-78); BILIRUBIN,TOTAL 0.6 MG/DL (0.2-1.0); BLOOD UREA NITROGEN 16 MG/DL (7-18); CALCIUM LEVEL 7.2 MG/DL (8.5-10.1); CARBON DIOXIDE LEVEL 26 MEQ/L (21-32); CHLORIDE LEVEL 101 MEQ/L (98-107); CREATININE FOR GFR 0.35 MG/DL (0.55-1.30); GLOMERULAR FILTRATION RATE > 60.0 (>60); GLUCOSE, FASTING 71 MG/DL (70-100); MAGNESIUM LEVEL 1.9 MG/DL (1.8-2.4); POTASSIUM SERUM 3.3 MEQ/L (3.5-5.1); SODIUM LEVEL 135 MEQ/L (136-145); TOTAL PROTEIN 5.2 GM/DL (6.4-8.2); TRIGLYCERIDES LEVEL 94 MG/DL (<150)
== END ==
LOC: M LAB REF 12:51
PROVIDERS: ATTEND General Practice
DX: E44.0 Moderate protein-calorie malnutrition (principal); C56.3 Malignant neoplasm of bilateral ovaries; R62.7 Adult failure to thrive

== ENCOUNTER → 2021-05-27 | Outpatient (REF) | payer BC ==
[2021-05-27 13:29] LABS: BASO % 0.4 % (0.0-1.0); EOS % 0.9 % (0.0-3.0); HEMATOCRIT 23.7 % (36.0-47.0); HEMOGLOBIN 7.7 g/dl (12.0-15.5); LYMPH # 0.6 10^3/uL (1.5-5.0); LYMPH % 25.6 % (24.0-44.0); MEAN CORPUSCULAR HEMOGLOBIN 31.2 pg (27.0-33.0); MEAN CORPUSCULAR HGB CONC 32.5 g/dl (32.0-36.5); MONO # 0.1 10^3/uL (0.0-0.8); NEUTROPHILS # 1.6 10^3/uL (1.5-8.5); NEUTROPHILS % 68.8 % (36.0-66.0); PLATELET COUNT, AUTOMATED 402 10^3/uL (150-450); RED BLOOD COUNT 2.47 10^6/uL (4.00-5.40); WHITE BLOOD COUNT 2.3 10^3/uL (4.0-10.0)
[2021-05-27 14:02] LABS: ALT/SGPT 132 U/L (12-78); BILIRUBIN,TOTAL 0.2 MG/DL (0.2-1.0); BLOOD UREA NITROGEN 12 MG/DL (7-18); CALCIUM LEVEL 7.8 MG/DL (8.5-10.1); CARBON DIOXIDE LEVEL 25 MEQ/L (21-32); CHLORIDE LEVEL 100 MEQ/L (98-107); CREATININE FOR GFR 0.35 MG/DL (0.55-1.30); GLOMERULAR FILTRATION RATE > 60.0 (>60); GLUCOSE, FASTING 96 MG/DL (70-100); MAGNESIUM LEVEL 1.6 MG/DL (1.8-2.4); PHOSPHORUS LEVEL 3.2 MG/DL (2.5-4.9); POTASSIUM SERUM 3.7 MEQ/L (3.5-5.1); SODIUM LEVEL 135 MEQ/L (136-145); TOTAL PROTEIN 5.3 GM/DL (6.4-8.2); TRIGLYCERIDES LEVEL 88 MG/DL (<150)
== END ==
LOC: M LAB REF 12:47
PROVIDERS: ATTEND General Practice
DX: E44.0 Moderate protein-calorie malnutrition (principal); C56.3 Malignant neoplasm of bilateral ovaries; R62.7 Adult failure to thrive

== ENCOUNTER → 2021-06-03 | Outpatient (REF) | payer BC ==
[2021-06-03 12:52] LABS: HEMATOCRIT 25.1 % (36.0-47.0); HEMOGLOBIN 8.1 g/dl (12.0-15.5); MEAN CORPUSCULAR HEMOGLOBIN 29.7 pg (27.0-33.0); MEAN CORPUSCULAR HGB CONC 32.3 g/dl (32.0-36.5); MEAN CORPUSCULAR VOLUME 91.9 fl (80.0-96.0); RED BLOOD COUNT 2.73 10^6/uL (4.00-5.40); WHITE BLOOD COUNT 4.8 10^3/uL (4.0-10.0)
[2021-06-03 13:24] LABS: ALBUMIN 2.1 GM/DL (3.2-5.2); ALT/SGPT 155 U/L (12-78); BILIRUBIN,TOTAL 0.4 MG/DL (0.2-1.0); BLOOD UREA NITROGEN 10 MG/DL (7-18); CARBON DIOXIDE LEVEL 29 MEQ/L (21-32); CHLORIDE LEVEL 97 MEQ/L (98-107); CREATININE FOR GFR 0.47 MG/DL (0.55-1.30); GLOMERULAR FILTRATION RATE > 60.0 (>60); GLUCOSE, FASTING 103 MG/DL (70-100); MAGNESIUM LEVEL 1.8 MG/DL (1.8-2.4); PHOSPHORUS LEVEL 2.8 MG/DL (2.5-4.9); POTASSIUM SERUM 2.6 MEQ/L (3.5-5.1); SODIUM LEVEL 135 MEQ/L (136-145); TRIGLYCERIDES LEVEL 189 MG/DL (<150)
[2021-06-03 13:46] LABS: PLATELET COUNT, AUTOMATED 77 10^3/uL (150-450)
[2021-06-03 13:58] LABS: ATYPICAL LYMPH 1 % (0-5); LYMPHOCYTES 23 % (16-44); MONOCYTES 4 % (0-5); MYELOCYTES 2 % (0-0); NEUTROPHILS 70 % (28-66); PLATELET ESTIMATE DECREASED (NORMAL)
[2021-06-03 13:59] LABS: ANISOCYTOSIS 1+; MICROCYTOSIS 1+; SMUDGE CELLS 1+
== END ==
LOC: M LAB REF 12:30
PROVIDERS: ATTEND General Practice
DX: E44.0 Moderate protein-calorie malnutrition (principal); C56.3 Malignant neoplasm of bilateral ovaries; R62.7 Adult failure to thrive

== ENCOUNTER 2021-06-10 17:32 | Inpatient (IN) | payer BC ==
[~2021-06-10] VITALS: Ht 160 cm; Wt 93.9 kg
[~2021-06-10 17:32] MED LIST changes: -FENT12DI8 PO; -FENT75DI29 TOP; -OXYC10TA12 PO
[2021-06-10] MEDS ORDERED: ACETAMINOPHEN 500 MG TAB PO ONE (18:40)
[2021-06-10] MEDS ORDERED: NS 2,750 ML in IV 1 EA IV ONE (18:55)
[2021-06-10 18:58] LABS: VENOUS BASE EXCESS -0.8 (-2.0-2.0); VENOUS O2 SATURATION 77.1 % (60.0-80.0); VENOUS PARTIAL PRESSURE CO2 34.2 mmHg (38.0-50.0); VENOUS PARTIAL PRESSURE O2 44.7 mmHg (30.0-50.0); VENOUS PH 7.446 UNITS (7.330-7.430); VENOUS STANDARD HCO3 23.6 MEQ/L; VENOUS TOTAL CO2 24.1 MEQ/L (24.0-28.0)
[2021-06-10] MEDS ORDERED: MORPHINE 4 MG/ML 1ML VIAL/SYRINGE IV ONE ×2 (19:10→20:25)
[2021-06-10] MEDS ORDERED: ONDANSETRON 4MG/2ML VIAL IV ONE (19:10)
[2021-06-10] MEDS ORDERED: PIPERACILLIN/TAZOBACTAM SOD 3.375 GM in D5W MINI-BAG PLUS 50 ML IV ONE (19:10)
[2021-06-10] MEDS ORDERED: SODIUM CHLORIDE 0.9% INJ 10 ML SYR IV PRN (19:10)
[2021-06-10] MEDS ORDERED: VANCOMYCIN HCL 2,000 MG in D5W 500 ML IV ONE (19:10)
[2021-06-10 19:13] LABS: HEMATOCRIT 23.2 % (36.0-47.0); HEMOGLOBIN 7.6 g/dl (12.0-15.5); MEAN CORPUSCULAR HEMOGLOBIN 30.3 pg (27.0-33.0); MEAN CORPUSCULAR HGB CONC 32.8 g/dl (32.0-36.5); MEAN CORPUSCULAR VOLUME 92.4 fl (80.0-96.0); RED BLOOD COUNT 2.51 10^6/uL (4.00-5.40); WHITE BLOOD COUNT 12.3 10^3/uL (4.0-10.0)
[2021-06-10 19:14] LABS: PLATELET COUNT, AUTOMATED 58 10^3/uL (150-450)
[2021-06-10] MEDS ORDERED: D5W 50ML As Ordered ONE (19:15)
[2021-06-10] MEDS ORDERED: ACETAMINOPHEN SUSP DYE FREE 160 MG/5 ML UDC PO ONE (19:15)
[2021-06-10 19:23] LABS: INR 1.31; PARTIAL THROMBOPLASTIN TIME 30.8 SECONDS (25.9-37.0); PROTHROMBIN TIME 16.7 SECONDS (12.7-14.5)
[2021-06-10 19:38] LABS: ALBUMIN 1.8 GM/DL (3.2-5.2); ALT/SGPT 46 U/L (12-78); AMYLASE 12 U/L (25-115); BILIRUBIN,DIRECT 0.4 MG/DL (0.0-0.2); BILIRUBIN,TOTAL 1.1 MG/DL (0.2-1.0); BLOOD UREA NITROGEN 12 MG/DL (7-18); CALCIUM LEVEL 7.6 MG/DL (8.5-10.1); CARBON DIOXIDE LEVEL 24 MEQ/L (21-32); CHLORIDE LEVEL 101 MEQ/L (98-107); CREATININE FOR GFR 0.67 MG/DL (0.55-1.30); GLOMERULAR FILTRATION RATE > 60.0 (>60); GLUCOSE, FASTING 99 MG/DL (70-100); POTASSIUM SERUM 4.1 MEQ/L (3.5-5.1); SODIUM LEVEL 134 MEQ/L (136-145); TOTAL PROTEIN 6.6 GM/DL (6.4-8.2)
[2021-06-10 19:43] LABS: ATYPICAL LYMPH 1 % (0-5); LYMPHOCYTES 4 % (16-44); MONOCYTES 9 % (0-5); NEUTROPHILS 85 % (28-66)
[2021-06-10 19:44] LABS: PLATELET ESTIMATE MARKED DECREASE (NORMAL)
[2021-06-10 19:45] LABS: ANISOCYTOSIS 2+; TOXIC VACUOLATION 1+
[2021-06-10 19:47] LABS: POIKILOCYTOSIS 1+
[2021-06-10] MEDS ORDERED: FENT75DI29 TOP (19:54)
[2021-06-10] MEDS ORDERED: OXYC10TA12 PO (19:54)
[2021-06-10] MEDS ORDERED: FENT12DI8 PO (19:54)
[2021-06-10] MEDS ORDERED: HOME MED LIST COMPLETE! XX SCH (20:00)
[2021-06-10] MEDS ORDERED: VANCOMYCIN HCL 1,000 MG, VIAL MATE ADAPTER 1 EACH in NS 250 ML IV ONE ×2 (20:00→21:00)
[2021-06-10] MEDS ORDERED: ISOVUE-370 76% 100ML VIAL As Ordered ONE (20:02)
[2021-06-10] MEDS: SUCRALFATE 1 GM TAB PO SCH (21:00)
[2021-06-10] MEDS ORDERED: PROMETHAZINE 25MG/ML 1ML VIAL IV ONE (22:25)
[2021-06-10] MEDS ORDERED: SODIUM CHLORIDE 0.9% 1000ML IV STA (23:32)
[2021-06-10] MEDS ORDERED: MOM 30ML SUSPENSION UDC PO PRN (23:35)
[2021-06-10] MEDS ORDERED: MAALOX 30 ML SUSP *UDC PO PRN (23:35)
[2021-06-10] MEDS ORDERED: PANTOPRAZOLE 40MG VIAL IV ONE (23:35)
[2021-06-11] VITALS (21 sets, daily range): BP systolic 100–126; BP diastolic 57–77
[2021-06-11 00:20] LABS: APPEARANCE, URINE CLEAR (CLEAR); BACTERIA, URINE AUTO NEGATIVE (NEGATIVE); BILIRUBIN, URINE AUTO NEGATIVE (NEGATIVE); BLOOD, URINE BLOOD NEGATIVE (NEGATIVE); COLOR, URINE AMBER (YELLOW); GLUCOSE, URINE (UA) AUTO NEGATIVE (NEGATIVE); KETONE, URINE AUTO NEGATIVE (NEGATIVE); LEUKOCYTE ESTERASE, URINE AUTO NEGATIVE (NEGATIVE); NITRITE, URINE AUTO NEGATIVE (NEGATIVE); PROTEIN, URINE AUTO 1+ mg/dL (NEGATIVE); RBC, URINE AUTO 0 /HPF (0-3); SPECIFIC GRAVITY URINE AUTO 1.047 (1.002-1.035); SQUAMOUS EPITHELIAL CELL UR AU 3 /HPF (0-6); WBC, URINE AUTO 3 /HPF (0-3)
[2021-06-11] MEDS ORDERED: ANEXSIA, NORCO 7.5MG/325MG TABLET(HYDROCODONE/APAP) PO PRN (00:40)
[2021-06-11] MEDS: NS 1,000 ML IV SCH ×2 (00:53→06:59)
[2021-06-11] MEDS: MORPHINE 2 MG/ML 1ML VIAL IV PRN ×5 (00:54→17:30)
[2021-06-11] MEDS: PIPERACILLIN/TAZOBACTAM SOD 4.5 GM in D5W MINI-BAG PLUS 50 ML IV SCH ×4 (00:54→18:12)
[2021-06-11] MEDS ORDERED: VANCOMYCIN HCL 1,000 MG, VIAL MATE ADAPTER 1 EACH in NS 250 ML IV SCH (04:00)
[2021-06-11 04:13] LABS: MEAN CORPUSCULAR HEMOGLOBIN 29.9 pg (27.0-33.0); MEAN CORPUSCULAR HGB CONC 32.2 g/dl (32.0-36.5); MEAN CORPUSCULAR VOLUME 92.9 fl (80.0-96.0); RED BLOOD COUNT 2.24 10^6/uL (4.00-5.40)
[2021-06-11 04:17] LABS: HEMATOCRIT 20.8 % (36.0-47.0); HEMOGLOBIN 6.7 g/dl (12.0-15.5); PLATELET COUNT, AUTOMATED 41 10^3/uL (150-450)
[2021-06-11 04:45] LABS: ALBUMIN 1.4 GM/DL (3.2-5.2); ALT/SGPT 37 U/L (12-78); BILIRUBIN,TOTAL 1.6 MG/DL (0.2-1.0); BLOOD UREA NITROGEN 10 MG/DL (7-18); CARBON DIOXIDE LEVEL 24 MEQ/L (21-32); CHLORIDE LEVEL 107 MEQ/L (98-107); GLOMERULAR FILTRATION RATE > 60.0 (>60); GLUCOSE, FASTING 105 MG/DL (70-100); MAGNESIUM LEVEL 1.8 MG/DL (1.8-2.4); POTASSIUM SERUM 3.3 MEQ/L (3.5-5.1); SODIUM LEVEL 137 MEQ/L (136-145); TOTAL PROTEIN 5.7 GM/DL (6.4-8.2)
[2021-06-11] MEDS ORDERED: KCL 10MEQ/100ML SWI (KRUN) 10 MEQ in IV 1 EA IV SCH (06:00)
[2021-06-11] MEDS ORDERED: MAG SULF 1GM/100ML (MAG RUN) 1 GM in IV 1 EA IV ONE (06:00)
[2021-06-11] MEDS: KCL 10MEQ/100ML SWI (KRUN) 10 MEQ in IV 1 EA IV SCH ×4 (07:40→10:09)
[2021-06-11] MEDS: PROMETHAZINE 25MG/ML 1ML VIAL IV PRN ×3 (07:48→20:19)
[2021-06-11 08:38] LABS: HEMOGLOBIN 8.3 g/dl (12.0-15.5)
[2021-06-11] MEDS: LIDOCAINE VISCOUS 2% SOLN 15ML UDC PO SCH ×4 (08:46→20:23)
[2021-06-11] MEDS: PANTOPRAZOLE 40MG VIAL IV SCH (08:47)
[2021-06-11] MEDS: SUCRALFATE 1 GM TAB PO SCH (08:47)
[2021-06-11] MEDS ORDERED: ENOXAPARIN 40MG/0.4ML SYRINGE (J1650 PER 10MG) SC SCH (09:00)
[2021-06-11] MEDS ORDERED: SCOPOLAMINE 1MG TRANSDERMAL PATCH TOP SCH (09:00)
[2021-06-11] MEDS: SUCRALFATE SUSP 1GM/10ML UD PO SCH ×2 (09:41→20:23)
[2021-06-11] MEDS: ACETAMINOPHEN TAB 650MG DOSE (2X325MG) PO PRN (11:28)
[2021-06-11] MEDS: ANEXSIA, NORCO 7.5MG/325MG TABLET(HYDROCODONE/APAP) PO PRN ×3 (11:29→20:14)
[2021-06-11 12:39] LABS: HEMATOCRIT 24.2 % (36.0-47.0)
[2021-06-11 12:59] LABS: BLOOD UREA NITROGEN 9 MG/DL (7-18); CALCIUM LEVEL 7.3 MG/DL (8.5-10.1); CARBON DIOXIDE LEVEL 24 MEQ/L (21-32); CHLORIDE LEVEL 107 MEQ/L (98-107); CREATININE FOR GFR 0.53 MG/DL (0.55-1.30); GLOMERULAR FILTRATION RATE > 60.0 (>60); GLUCOSE, FASTING 117 MG/DL (70-100); NT-PRO BNP 139 PG/ML (<125); POTASSIUM SERUM 3.2 MEQ/L (3.5-5.1); SODIUM LEVEL 137 MEQ/L (136-145)
[2021-06-11] MEDS: KCL 20MEQ IN 100ML SWI (KRUN) 20 MEQ in IV 1 EA IV SCH ×6 (14:19→16:06)
[2021-06-11] MEDS: VANCOMYCIN HCL 1,000 MG, VIAL MATE ADAPTER 1 EACH in NS 250 ML IV SCH ×2 (16:56→23:49)
[2021-06-11] MEDS ORDERED: [UNRECOGNIZED DRUG - OTHER] IV SCH (18:00)
[2021-06-11] MEDS ORDERED: AMINO ACIDS IV SCH (18:00)
[2021-06-11] MEDS ORDERED: DEXTROSE IV SCH (18:00)
[2021-06-11] MEDS: SCOPOLAMINE 1MG TRANSDERMAL PATCH TOP SCH (18:09)
[2021-06-12] VITALS (8 sets, daily range): BP systolic 114–145; BP diastolic 72–97
[2021-06-12] MEDS: ONDANSETRON 4MG/2ML VIAL IV PRN ×2 (00:17→09:41)
[2021-06-12] MEDS: PIPERACILLIN/TAZOBACTAM SOD 4.5 GM in D5W MINI-BAG PLUS 50 ML IV SCH ×4 (01:29→18:47)
[2021-06-12] MEDS: PROMETHAZINE 25MG/ML 1ML VIAL IV PRN ×3 (04:11→17:49)
[2021-06-12] MEDS: ANEXSIA, NORCO 7.5MG/325MG TABLET(HYDROCODONE/APAP) PO PRN ×3 (04:12→20:42)
[2021-06-12 04:48] LABS: HEMATOCRIT 26.1 % (36.0-47.0); HEMOGLOBIN 8.4 g/dl (12.0-15.5); MEAN CORPUSCULAR HEMOGLOBIN 30.2 pg (27.0-33.0); MEAN CORPUSCULAR HGB CONC 32.2 g/dl (32.0-36.5); MEAN CORPUSCULAR VOLUME 93.9 fl (80.0-96.0); PLATELET COUNT, AUTOMATED 43 10^3/uL (150-450); RED BLOOD COUNT 2.78 10^6/uL (4.00-5.40); WHITE BLOOD COUNT 9.3 10^3/uL (4.0-10.0)
[2021-06-12 05:11] LABS: BLOOD UREA NITROGEN 9 MG/DL (7-18); CALCIUM LEVEL 7.4 MG/DL (8.5-10.1); CARBON DIOXIDE LEVEL 23 MEQ/L (21-32); CHLORIDE LEVEL 107 MEQ/L (98-107); GLOMERULAR FILTRATION RATE > 60.0 (>60); GLUCOSE, FASTING 96 MG/DL (70-100); POTASSIUM SERUM 3.9 MEQ/L (3.5-5.1); SODIUM LEVEL 135 MEQ/L (136-145)
[2021-06-12] MEDS: MORPHINE 2 MG/ML 1ML VIAL IV PRN ×5 (06:28→22:46)
[2021-06-12] MEDS: LIDOCAINE VISCOUS 2% SOLN 15ML UDC PO SCH ×4 (08:54→20:42)
[2021-06-12] MEDS: VANCOMYCIN HCL 1,000 MG, VIAL MATE ADAPTER 1 EACH in NS 250 ML IV SCH ×3 (08:54→23:42)
[2021-06-12] MEDS: SUCRALFATE SUSP 1GM/10ML UD PO SCH ×2 (08:54→20:41)
[2021-06-12] MEDS: PANTOPRAZOLE 40MG VIAL IV SCH (08:54)
[2021-06-12] MEDS ORDERED: ISOVUE-370 76% 100ML VIAL As Ordered ONE (16:14)
[2021-06-13] VITALS (20 sets, daily range): BP systolic 100–141; BP diastolic 57–94
[2021-06-13] MEDS: PIPERACILLIN/TAZOBACTAM SOD 4.5 GM in D5W MINI-BAG PLUS 50 ML IV SCH ×4 (00:54→20:50)
[2021-06-13] MEDS: ANEXSIA, NORCO 7.5MG/325MG TABLET(HYDROCODONE/APAP) PO PRN (02:44)
[2021-06-13] MEDS: MORPHINE 2 MG/ML 1ML VIAL IV PRN ×4 (04:11→20:55)
[2021-06-13] MEDS: PROMETHAZINE 25MG/ML 1ML VIAL IV PRN ×2 (05:08→11:25)
[2021-06-13 07:57] LABS: HEMATOCRIT 21.6 % (36.0-47.0); MEAN CORPUSCULAR HEMOGLOBIN 30.2 pg (27.0-33.0); MEAN CORPUSCULAR HGB CONC 31.5 g/dl (32.0-36.5); RED BLOOD COUNT 2.25 10^6/uL (4.00-5.40); WHITE BLOOD COUNT 7.4 10^3/uL (4.0-10.0)
[2021-06-13 08:03] LABS: HEMOGLOBIN 6.8 g/dl (12.0-15.5); PLATELET COUNT, AUTOMATED 59 10^3/uL (150-450)
[2021-06-13 08:24] LABS: BLOOD UREA NITROGEN 9 MG/DL (7-18); CALCIUM LEVEL 7.6 MG/DL (8.5-10.1); CARBON DIOXIDE LEVEL 28 MEQ/L (21-32); CHLORIDE LEVEL 107 MEQ/L (98-107); CREATININE FOR GFR 0.37 MG/DL (0.55-1.30); GLOMERULAR FILTRATION RATE > 60.0 (>60); GLUCOSE, FASTING 118 MG/DL (70-100); POTASSIUM SERUM 4.1 MEQ/L (3.5-5.1); SODIUM LEVEL 139 MEQ/L (136-145); VANCOMYCIN LEVEL TROUGH 13.4 UG/ML (10.0-20.0)
[2021-06-13] MEDS: VANCOMYCIN HCL 1,000 MG, VIAL MATE ADAPTER 1 EACH in NS 250 ML IV SCH ×2 (08:28→16:28)
[2021-06-13] MEDS: PANTOPRAZOLE 40MG VIAL IV SCH (08:28)
[2021-06-13] MEDS: fentaNYL 75 MCG/HR PATCH TOP SCH (08:29)
[2021-06-13] MEDS: SUCRALFATE SUSP 1GM/10ML UD PO SCH ×2 (08:30→20:50)
[2021-06-13] MEDS: LIDOCAINE VISCOUS 2% SOLN 15ML UDC PO SCH ×4 (09:00→20:56)
[2021-06-13] MEDS ORDERED: FENTANYL REMOVAL DOCUMENTATION MISC XX SCH (09:00)
[2021-06-13] MEDS ORDERED: ACETAMINOPHEN 500 MG TAB PO ONE (13:15)
[2021-06-13] MEDS ORDERED: methylPREDNISolone 40MG 1ML VIAL IV ONE (13:15)
[2021-06-13] MEDS ORDERED: MAG SULF 1GM/100ML (MAG RUN) 1 GM in IV 1 EA IV ONE (17:35)
[2021-06-13] MEDS ORDERED: FAT EMULSION IV 20% 500 ML IV SCH (18:00)
[2021-06-13] MEDS ORDERED: AMINO AC/ELECTROLYTE/DEX/CALC 2,000 ML IV SCH (18:00)
[2021-06-13] MEDS ORDERED: HEPARIN SOD (PORCINE) 5000UNITS/ML 1ML VIAL/SYRINGE IV PRN (18:45)
[2021-06-13 21:40] LABS: HEMATOCRIT 26.6 % (36.0-47.0); HEMOGLOBIN 8.6 g/dl (12.0-15.5)
[2021-06-14] VITALS (20 sets, daily range): BP systolic 104–139; BP diastolic 60–84
[2021-06-14 00:09] LABS: INR 1.18; PROTHROMBIN TIME 15.4 SECONDS (12.7-14.5)
[2021-06-14 00:10] LABS: PARTIAL THROMBOPLASTIN TIME 33.2 SECONDS (25.9-37.0)
[2021-06-14] MEDS: VANCOMYCIN HCL 1,000 MG, VIAL MATE ADAPTER 1 EACH in NS 250 ML IV SCH (00:12)
[2021-06-14] MEDS: PIPERACILLIN/TAZOBACTAM SOD 4.5 GM in D5W MINI-BAG PLUS 50 ML IV SCH ×4 (01:27→19:32)
[2021-06-14] MEDS: MORPHINE 2 MG/ML 1ML VIAL IV PRN ×4 (03:51→23:45)
[2021-06-14] MEDS: ONDANSETRON 4MG/2ML VIAL IV PRN (04:44)
[2021-06-14 06:04] LABS: HEMATOCRIT 26.6 % (36.0-47.0); HEMOGLOBIN 8.6 g/dl (12.0-15.5); MEAN CORPUSCULAR HEMOGLOBIN 30.4 pg (27.0-33.0); MEAN CORPUSCULAR HGB CONC 32.3 g/dl (32.0-36.5); RED BLOOD COUNT 2.83 10^6/uL (4.00-5.40); WHITE BLOOD COUNT 9.3 10^3/uL (4.0-10.0)
[2021-06-14 06:05] LABS: PLATELET COUNT, AUTOMATED 71 10^3/uL (150-450)
[2021-06-14 06:35] LABS: BLOOD UREA NITROGEN 6 MG/DL (7-18); CALCIUM LEVEL 8.2 MG/DL (8.5-10.1); CARBON DIOXIDE LEVEL 28 MEQ/L (21-32); CHLORIDE LEVEL 109 MEQ/L (98-107); CREATININE FOR GFR 0.39 MG/DL (0.55-1.30); GLOMERULAR FILTRATION RATE > 60.0 (>60); GLUCOSE, FASTING 120 MG/DL (70-100); POTASSIUM SERUM 3.8 MEQ/L (3.5-5.1); SODIUM LEVEL 140 MEQ/L (136-145)
[2021-06-14] MEDS: SUCRALFATE SUSP 1GM/10ML UD PO SCH ×2 (08:34→20:30)
[2021-06-14] MEDS: LIDOCAINE VISCOUS 2% SOLN 15ML UDC PO SCH (08:34)
[2021-06-14] MEDS: PANTOPRAZOLE 40MG VIAL IV SCH (08:35)
[2021-06-14] MEDS ORDERED: ENTER DRUG NAME HERE (PATIENT'S OWN MED) IV SCH (08:45)
[2021-06-14] MEDS ORDERED: LORazepam 1 MG TAB PO ONE (08:50)
[2021-06-14] MEDS ORDERED: LIDOCAINE 1% MDV 20ML VIAL As Ordered ONE (10:39)
[2021-06-14] MEDS: PROMETHAZINE 25MG/ML 1ML VIAL IV PRN ×2 (13:26→20:30)
[2021-06-14 16:15] LABS: INR 1.17; PROTHROMBIN TIME 15.3 SECONDS (12.7-14.5)
[2021-06-14 16:16] LABS: PARTIAL THROMBOPLASTIN TIME 34.9 SECONDS (25.9-37.0)
[2021-06-14] MEDS: HEPARIN DRIP 25,000 UNITS in IV 1 EA IV SCH ×2 (16:26→23:15)
[2021-06-14] MEDS ORDERED: SODIUM CHLORIDE 0.9% INJ 10 ML SYR IV PRN (17:35)
[2021-06-14] MEDS: SCOPOLAMINE 1MG TRANSDERMAL PATCH TOP SCH (17:46)
[2021-06-14] MEDS: SODIUM CHLORIDE 0.9% INJ 10 ML SYR IV SCH (19:11)
[2021-06-14 23:00] LABS: INR 1.14
[2021-06-14 23:01] LABS: PARTIAL THROMBOPLASTIN TIME 46.7 SECONDS (25.9-37.0)
[2021-06-15] VITALS (16 sets, daily range): BP systolic 112–148; BP diastolic 60–85
[2021-06-15] MEDS: PIPERACILLIN/TAZOBACTAM SOD 4.5 GM in D5W MINI-BAG PLUS 50 ML IV SCH ×4 (00:07→18:52)
[2021-06-15] MEDS: HYDROMORPHONE HCL 0.5 MG/ 0.5 ML SYRINGE (J1170 PER 1) IV PRN ×3 (01:01→22:50)
[2021-06-15] MEDS: MORPHINE 2 MG/ML 1ML VIAL IV PRN (04:25)
[2021-06-15] MEDS: PROMETHAZINE 25MG/ML 1ML VIAL IV PRN (04:29)
[2021-06-15 05:34] LABS: HEMATOCRIT 25.6 % (36.0-47.0); HEMOGLOBIN 8.1 g/dl (12.0-15.5); MEAN CORPUSCULAR HEMOGLOBIN 30.7 pg (27.0-33.0); MEAN CORPUSCULAR HGB CONC 31.6 g/dl (32.0-36.5); RED BLOOD COUNT 2.64 10^6/uL (4.00-5.40); WHITE BLOOD COUNT 7.4 10^3/uL (4.0-10.0)
[2021-06-15 05:37] LABS: PLATELET COUNT, AUTOMATED 83 10^3/uL (150-450)
[2021-06-15 05:48] LABS: INR 1.19; PROTHROMBIN TIME 15.5 SECONDS (12.7-14.5)
[2021-06-15 05:50] LABS: PARTIAL THROMBOPLASTIN TIME 58.6 SECONDS (25.9-37.0)
[2021-06-15 06:00] LABS: BLOOD UREA NITROGEN 4 MG/DL (7-18); CALCIUM LEVEL 7.8 MG/DL (8.5-10.1); CARBON DIOXIDE LEVEL 28 MEQ/L (21-32); CHLORIDE LEVEL 108 MEQ/L (98-107); CREATININE FOR GFR 0.61 MG/DL (0.55-1.30); GLOMERULAR FILTRATION RATE > 60.0 (>60); GLUCOSE, FASTING 88 MG/DL (70-100); POTASSIUM SERUM 3.5 MEQ/L (3.5-5.1); SODIUM LEVEL 141 MEQ/L (136-145)
[2021-06-15] MEDS: SODIUM CHLORIDE 0.9% INJ 10 ML SYR IV SCH ×2 (06:00→18:00)
[2021-06-15] MEDS ORDERED: HYDROMORPHONE HCL 0.5 MG/ 0.5 ML SYRINGE (J1170 PER 1) IV ONE (06:00)
[2021-06-15] MEDS: PANTOPRAZOLE 40MG VIAL IV SCH (08:06)
[2021-06-15] MEDS: SUCRALFATE SUSP 1GM/10ML UD PO SCH ×2 (08:06→20:02)
[2021-06-15] MEDS: ONDANSETRON 4MG/2ML VIAL IV PRN ×2 (08:15→08:20)
[2021-06-15] MEDS: HEPARIN DRIP 25,000 UNITS in IV 1 EA IV SCH ×2 (08:19→23:06)
[2021-06-15] MEDS: ACETAMINOPHEN TAB 650MG DOSE (2X325MG) PO PRN (14:47)
[2021-06-15] MEDS ORDERED: DARBEPOETIN 40 MCG/0.4 ML *NON-DIALYSIS* SYRINGE (J0881) SQ ONE (17:00)
[2021-06-15] MEDS ORDERED: AMINO AC/ELECTROLYTE/DEX/CALC 2,000 ML IV SCH (18:00)
[2021-06-15] MEDS ORDERED: FAT EMULSION IV 20% 500 ML IV SCH (18:00)
[2021-06-15] MEDS: ANEXSIA, NORCO 7.5MG/325MG TABLET(HYDROCODONE/APAP) PO PRN (20:03)
[2021-06-16] VITALS (19 sets, daily range): BP systolic 123–177; BP diastolic 58–128
[2021-06-16] MEDS: PIPERACILLIN/TAZOBACTAM SOD 4.5 GM in D5W MINI-BAG PLUS 50 ML IV SCH ×4 (00:31→18:01)
[2021-06-16] MEDS: ANEXSIA, NORCO 7.5MG/325MG TABLET(HYDROCODONE/APAP) PO PRN ×4 (01:43→23:30)
[2021-06-16] MEDS: PROMETHAZINE 25MG/ML 1ML VIAL IV PRN (03:17)
[2021-06-16 03:34] LABS: INR 1.25; PROTHROMBIN TIME 16.1 SECONDS (12.7-14.5)
[2021-06-16 03:35] LABS: PARTIAL THROMBOPLASTIN TIME 76.4 SECONDS (25.9-37.0)
[2021-06-16 05:13] LABS: HEMATOCRIT 23.4 % (36.0-47.0); HEMOGLOBIN 7.4 g/dl (12.0-15.5); MEAN CORPUSCULAR HEMOGLOBIN 30.8 pg (27.0-33.0); MEAN CORPUSCULAR HGB CONC 31.6 g/dl (32.0-36.5); MEAN CORPUSCULAR VOLUME 97.5 fl (80.0-96.0); WHITE BLOOD COUNT 5.6 10^3/uL (4.0-10.0)
[2021-06-16 05:14] LABS: PLATELET COUNT, AUTOMATED 72 10^3/uL (150-450)
[2021-06-16] MEDS: HYDROMORPHONE HCL 0.5 MG/ 0.5 ML SYRINGE (J1170 PER 1) IV PRN ×4 (05:14→21:27)
[2021-06-16] MEDS: SODIUM CHLORIDE 0.9% INJ 10 ML SYR IV SCH ×2 (05:48→17:59)
[2021-06-16 06:00] LABS: BLOOD UREA NITROGEN 5 MG/DL (7-18); CALCIUM LEVEL 7.6 MG/DL (8.5-10.1); CARBON DIOXIDE LEVEL 29 MEQ/L (21-32); CHLORIDE LEVEL 103 MEQ/L (98-107); CREATININE FOR GFR 0.42 MG/DL (0.55-1.30); GLOMERULAR FILTRATION RATE > 60.0 (>60); GLUCOSE, FASTING 109 MG/DL (70-100); POTASSIUM SERUM 3.2 MEQ/L (3.5-5.1); SODIUM LEVEL 140 MEQ/L (136-145)
[2021-06-16 06:54] LABS: HEMOGLOBIN 7.2 g/dl (12.0-15.5)
[2021-06-16 07:28] LABS: MAGNESIUM LEVEL 1.6 MG/DL (1.8-2.4)
[2021-06-16] MEDS ORDERED: MAG SULF 1GM/100ML (MAG RUN) 1 GM in IV 1 EA IV ONE (08:10)
[2021-06-16] MEDS: fentaNYL 75 MCG/HR PATCH TOP SCH (08:18)
[2021-06-16] MEDS: SUCRALFATE SUSP 1GM/10ML UD PO SCH ×2 (08:18→21:26)
[2021-06-16] MEDS: PANTOPRAZOLE 40MG VIAL IV SCH (08:20)
[2021-06-16] MEDS ORDERED: POTASSIUM CHLORIDE 10MEQ SR TABLET PO SCH ×2 (09:00)
[2021-06-16] MEDS: POTASSIUM CHL PWD 20 MEQ PACKET PO SCH ×2 (09:54→21:26)
[2021-06-16] MEDS: HEPARIN DRIP 25,000 UNITS in IV 1 EA IV SCH (12:13)
[2021-06-16] MEDS ORDERED: ISOVUE-370 76% 100ML VIAL As Ordered ONE (15:25)
[2021-06-16] MEDS: ACETAMINOPHEN TAB 650MG DOSE (2X325MG) PO PRN (16:06)
[2021-06-16] MEDS ORDERED: AMINO AC/ELECTROLYTE/DEX/CALC 2,000 ML IV SCH (18:00)
[2021-06-16] MEDS ORDERED: FAT EMULSION IV 20% 500 ML IV SCH (18:00)
[2021-06-16] MEDS: VANCOMYCIN HCL 1,000 MG, VIAL MATE ADAPTER 1 EACH in NS 250 ML IV SCH (21:26)
[2021-06-16] MEDS ORDERED: VANCOMYCIN HCL 1,000 MG, VIAL MATE ADAPTER 1 EACH in NS 250 ML IV ONE (22:00)
[2021-06-17] VITALS: BP 127/59
[2021-06-17] MEDS ORDERED: HYDROMORPHONE HCL 0.5 MG/ 0.5 ML SYRINGE (J1170 PER 1) IV ONE
[2021-06-17] MEDS: PIPERACILLIN/TAZOBACTAM SOD 4.5 GM in D5W MINI-BAG PLUS 50 ML IV SCH ×4 (00:32→18:34)
[2021-06-17] MEDS: HEPARIN DRIP 25,000 UNITS in IV 1 EA IV SCH (02:24)
[2021-06-17 04:00] VITALS: BP 123/60
[2021-06-17] MEDS: SODIUM CHLORIDE 0.9% INJ 10 ML SYR IV SCH ×2 (04:57→18:31)
[2021-06-17] MEDS: VANCOMYCIN HCL 1,000 MG, VIAL MATE ADAPTER 1 EACH in NS 250 ML IV SCH ×3 (05:08→21:53)
[2021-06-17] MEDS: HYDROMORPHONE HCL 0.5 MG/ 0.5 ML SYRINGE (J1170 PER 1) IV PRN ×3 (05:19→19:22)
[2021-06-17 05:26] LABS: HEMATOCRIT 23.2 % (36.0-47.0); HEMOGLOBIN 7.4 g/dl (12.0-15.5); MEAN CORPUSCULAR HEMOGLOBIN 31.2 pg (27.0-33.0); MEAN CORPUSCULAR HGB CONC 31.9 g/dl (32.0-36.5); MEAN CORPUSCULAR VOLUME 97.9 fl (80.0-96.0); RED BLOOD COUNT 2.37 10^6/uL (4.00-5.40); WHITE BLOOD COUNT 6.5 10^3/uL (4.0-10.0)
[2021-06-17 05:27] LABS: PLATELET COUNT, AUTOMATED 73 10^3/uL (150-450)
[2021-06-17 06:28] LABS: BLOOD UREA NITROGEN 7 MG/DL (7-18); CALCIUM LEVEL 7.9 MG/DL (8.5-10.1); CARBON DIOXIDE LEVEL 31 MEQ/L (21-32); CHLORIDE LEVEL 103 MEQ/L (98-107); CREATININE FOR GFR 0.37 MG/DL (0.55-1.30); GLOMERULAR FILTRATION RATE > 60.0 (>60); GLUCOSE, FASTING 105 MG/DL (70-100); POTASSIUM SERUM 3.2 MEQ/L (3.5-5.1); SODIUM LEVEL 138 MEQ/L (136-145)
[2021-06-17 08:00] VITALS: BP 136/72
[2021-06-17] MEDS: ANEXSIA, NORCO 7.5MG/325MG TABLET(HYDROCODONE/APAP) PO PRN ×2 (08:53→16:29)
[2021-06-17] MEDS ORDERED: POTASSIUM CHL PWD 20 MEQ PACKET PO SCH (09:00)
[2021-06-17] MEDS: PANTOPRAZOLE 40MG VIAL IV SCH (09:49)
[2021-06-17] MEDS: SUCRALFATE SUSP 1GM/10ML UD PO SCH ×2 (09:49→21:53)
[2021-06-17] MEDS ORDERED: KCL 10MEQ/100ML SWI (KRUN) 10 MEQ in IV 1 EA IV SCH (10:00)
[2021-06-17] MEDS: PROMETHAZINE 25MG/ML 1ML VIAL IV PRN ×3 (10:54→23:31)
[2021-06-17] MEDS: KCL 20MEQ IN 100ML SWI (KRUN) 20 MEQ in IV 1 EA IV SCH ×6 (10:55→16:18)
[2021-06-17] MEDS: APIXABAN 5 MG TAB (ELIQUIS) PO SCH ×2 (10:55→21:53)
[2021-06-17 12:33] VITALS: BP 127/70
[2021-06-17 17:55] VITALS: BP 127/63
[2021-06-17] MEDS ORDERED: FAT EMULSION IV 20% 500 ML IV SCH (18:00)
[2021-06-17] MEDS ORDERED: MULTIVITAMIN -ADULT INJECTION 10 ML, ZINC/COPPER/MANGANESE/SELENIUM 1 ML in AMINO AC/EL... IV SCH (18:00)
[2021-06-17] MEDS: SCOPOLAMINE 1MG TRANSDERMAL PATCH TOP SCH (18:33)
[2021-06-17 20:00] VITALS: BP 127/82
[2021-06-18] VITALS (18 sets, daily range): BP systolic 122–142; BP diastolic 57–99
[2021-06-18] MEDS: ACETAMINOPHEN TAB 650MG DOSE (2X325MG) PO PRN ×2 (00:32→16:08)
[2021-06-18] MEDS: PIPERACILLIN/TAZOBACTAM SOD 4.5 GM in D5W MINI-BAG PLUS 50 ML IV SCH ×4 (00:33→21:07)
[2021-06-18] MEDS: HYDROMORPHONE HCL 0.5 MG/ 0.5 ML SYRINGE (J1170 PER 1) IV PRN ×5 (00:39→22:00)
[2021-06-18] MEDS ORDERED: HYDROMORPHONE HCL 0.5 MG/ 0.5 ML SYRINGE (J1170 PER 1) IV ONE (03:30)
[2021-06-18] MEDS: VANCOMYCIN HCL 1,000 MG, VIAL MATE ADAPTER 1 EACH in NS 250 ML IV SCH ×3 (03:52→22:26)
[2021-06-18] MEDS: SODIUM CHLORIDE 0.9% INJ 10 ML SYR IV SCH ×2 (06:01→18:08)
[2021-06-18 06:17] LABS: HEMATOCRIT 23.2 % (36.0-47.0); HEMOGLOBIN 7.4 g/dl (12.0-15.5); MEAN CORPUSCULAR HEMOGLOBIN 31.4 pg (27.0-33.0); MEAN CORPUSCULAR HGB CONC 31.9 g/dl (32.0-36.5); MEAN CORPUSCULAR VOLUME 98.3 fl (80.0-96.0); RED BLOOD COUNT 2.36 10^6/uL (4.00-5.40); WHITE BLOOD COUNT 8.5 10^3/uL (4.0-10.0)
[2021-06-18 06:21] LABS: PLATELET COUNT, AUTOMATED 88 10^3/uL (150-450)
[2021-06-18 06:53] LABS: BLOOD UREA NITROGEN 8 MG/DL (7-18); CALCIUM LEVEL 7.9 MG/DL (8.5-10.1); CARBON DIOXIDE LEVEL 29 MEQ/L (21-32); CHLORIDE LEVEL 102 MEQ/L (98-107); CREATININE FOR GFR 0.42 MG/DL (0.55-1.30); GLOMERULAR FILTRATION RATE > 60.0 (>60); GLUCOSE, FASTING 130 MG/DL (70-100); POTASSIUM SERUM 3.2 MEQ/L (3.5-5.1); SODIUM LEVEL 137 MEQ/L (136-145)
[2021-06-18] MEDS: PANTOPRAZOLE 40MG VIAL IV SCH (07:54)
[2021-06-18] MEDS: APIXABAN 5 MG TAB (ELIQUIS) PO SCH ×2 (07:54→21:49)
[2021-06-18] MEDS: SUCRALFATE SUSP 1GM/10ML UD PO SCH ×2 (07:54→21:48)
[2021-06-18] MEDS ORDERED: KCL 10MEQ/100ML SWI (KRUN) 10 MEQ in IV 1 EA IV SCH (15:00)
[2021-06-18] MEDS: MAG SULF 1GM/100ML (MAG RUN) 1 GM in IV 1 EA IV SCH ×2 (15:03→16:08)
[2021-06-18] MEDS: PROMETHAZINE 25MG/ML 1ML VIAL IV PRN ×2 (15:03→21:22)
[2021-06-18] MEDS: KCL 20MEQ IN 100ML SWI (KRUN) 20 MEQ in IV 1 EA IV SCH ×4 (17:07→18:06)
[2021-06-18] MEDS ORDERED: AMINO AC/ELECTROLYTE/DEX/CALC 2,000 ML IV SCH (18:00)
[2021-06-18] MEDS ORDERED: FAT EMULSION IV 20% 500 ML IV SCH (18:00)
[2021-06-18] MEDS ORDERED: FUROSEMIDE 20MG/2ML VIAL (J1940) IV ONE (18:30)
[2021-06-19] VITALS (15 sets, daily range): BP systolic 114–144; BP diastolic 56–94
[2021-06-19] MEDS: PIPERACILLIN/TAZOBACTAM SOD 4.5 GM in D5W MINI-BAG PLUS 50 ML IV SCH ×4 (01:49→17:49)
[2021-06-19] MEDS: HYDROMORPHONE HCL 0.5 MG/ 0.5 ML SYRINGE (J1170 PER 1) IV PRN ×5 (01:50→19:18)
[2021-06-19] MEDS: PROMETHAZINE 25MG/ML 1ML VIAL IV PRN ×3 (05:18→23:42)
[2021-06-19] MEDS: VANCOMYCIN HCL 1,000 MG, VIAL MATE ADAPTER 1 EACH in NS 250 ML IV SCH (05:21)
[2021-06-19] MEDS: SODIUM CHLORIDE 0.9% INJ 10 ML SYR IV SCH ×2 (05:21→17:44)
[2021-06-19 05:38] LABS: BASO % 0.1 % (0.0-1.0); EOS % 0.3 % (0.0-3.0); HEMATOCRIT 24.3 % (36.0-47.0); HEMOGLOBIN 7.4 g/dl (12.0-15.5); LYMPH # 0.7 10^3/uL (1.5-5.0); LYMPH % 10.4 % (24.0-44.0); MEAN CORPUSCULAR HGB CONC 30.5 g/dl (32.0-36.5); MEAN CORPUSCULAR VOLUME 98.4 fl (80.0-96.0); MONO # 0.8 10^3/uL (0.0-0.8); MONO % 10.9 % (2.0-8.0); NEUTROPHILS # 5.4 10^3/uL (1.5-8.5); PLATELET COUNT, AUTOMATED 101 10^3/uL (150-450); RED BLOOD COUNT 2.47 10^6/uL (4.00-5.40)
[2021-06-19 05:57] LABS: BLOOD UREA NITROGEN 8 MG/DL (7-18); CALCIUM LEVEL 8.1 MG/DL (8.5-10.1); CARBON DIOXIDE LEVEL 29 MEQ/L (21-32); CHLORIDE LEVEL 104 MEQ/L (98-107); CREATININE FOR GFR 0.48 MG/DL (0.55-1.30); GLOMERULAR FILTRATION RATE > 60.0 (>60); GLUCOSE, FASTING 99 MG/DL (70-100); MAGNESIUM LEVEL 1.6 MG/DL (1.8-2.4); PHOSPHORUS LEVEL 4.1 MG/DL (2.5-4.9); POTASSIUM SERUM 3.4 MEQ/L (3.5-5.1); SODIUM LEVEL 139 MEQ/L (136-145)
[2021-06-19] MEDS: KCL 20MEQ IN 100ML SWI (KRUN) 20 MEQ in IV 1 EA IV SCH ×4 (08:12→09:35)
[2021-06-19] MEDS: APIXABAN 5 MG TAB (ELIQUIS) PO SCH ×2 (08:12→20:09)
[2021-06-19] MEDS: fentaNYL 75 MCG/HR PATCH TOP SCH (08:13)
[2021-06-19] MEDS: PANTOPRAZOLE 40MG VIAL IV SCH (08:14)
[2021-06-19] MEDS: SUCRALFATE SUSP 1GM/10ML UD PO SCH ×2 (08:14→20:09)
[2021-06-19] MEDS: MAG SULF 1GM/100ML (MAG RUN) 1 GM in IV 1 EA IV SCH ×2 (10:36→11:42)
[2021-06-19] MEDS ORDERED: DOXYCYCLINE HYCLATE 100 MG in D5W MINI-BAG PLUS 100 ML IV SCH (11:00)
[2021-06-19] MEDS ORDERED: FUROSEMIDE 40MG/4ML VIAL (J1940) IV ONE (12:15)
[2021-06-19 14:32] LABS: ALBUMIN 1.5 GM/DL (3.2-5.2); ALT/SGPT 15 U/L (12-78); BILIRUBIN,DIRECT 0.4 MG/DL (0.0-0.2); BILIRUBIN,TOTAL 0.7 MG/DL (0.2-1.0); FERRITIN 884 NG/ML (8-252); IRON (FE) 22 UG/DL (50-170); PERCENT SATURATION 18.8 % (13.2-45.0); TOTAL IRON BINDING CAPACITY 117 UG/DL (250-450); TOTAL PROTEIN 6.1 GM/DL (6.4-8.2); TRIGLYCERIDES LEVEL 104 MG/DL (<150)
[2021-06-19 14:36] LABS: VITAMIN B12 LEVEL 680 PG/ML
[2021-06-19] MEDS: DOXYCYCLINE HYCLATE 100 MG in D5W MINI-BAG PLUS 100 ML IV SCH (14:58)
[2021-06-19] MEDS ORDERED: ISOVUE-370 76% 100ML VIAL As Ordered ONE (16:59)
[2021-06-19] MEDS: FUROSEMIDE 40MG/4ML VIAL (J1940) IV SCH (17:40)
[2021-06-19] MEDS: HumaLOG INSULIN (NovoLOG) PER UNIT SC SCH ×2 (17:43→23:42)
[2021-06-19] MEDS ORDERED: FAT EMULSION IV 20% 500 ML IV SCH (18:00)
[2021-06-19] MEDS ORDERED: MULTIVITAMIN -ADULT INJECTION 10 ML, ZINC/COPPER/MANGANESE/SELENIUM 1 ML in AMINO AC/EL... IV SCH (18:00)
[2021-06-19] MEDS ORDERED: ACETAMINOPHEN *IV* 1,000 MG in IV 1 EA IV ONE (18:45)
[2021-06-20] VITALS (17 sets, daily range): BP systolic 118–150; BP diastolic 58–88
[2021-06-20] MEDS: PIPERACILLIN/TAZOBACTAM SOD 4.5 GM in D5W MINI-BAG PLUS 50 ML IV SCH ×4 (00:20→18:21)
[2021-06-20] MEDS: DOXYCYCLINE HYCLATE 100 MG in D5W MINI-BAG PLUS 100 ML IV SCH ×2 (01:27→13:50)
[2021-06-20] MEDS: HYDROMORPHONE HCL 0.5 MG/ 0.5 ML SYRINGE (J1170 PER 1) IV PRN ×4 (04:37→21:31)
[2021-06-20 04:44] LABS: HEMATOCRIT 21.3 % (36.0-47.0); MEAN CORPUSCULAR HEMOGLOBIN 30.3 pg (27.0-33.0); MEAN CORPUSCULAR VOLUME 97.7 fl (80.0-96.0); PLATELET COUNT, AUTOMATED 110 10^3/uL (150-450); RED BLOOD COUNT 2.18 10^6/uL (4.00-5.40); WHITE BLOOD COUNT 4.1 10^3/uL (4.0-10.0)
[2021-06-20 04:45] LABS: HEMOGLOBIN 6.6 g/dl (12.0-15.5)
[2021-06-20] MEDS ORDERED: HYDROCORTISONE 100 MG/2 ML VIAL (J1720 PER 1) IV ONE (04:55)
[2021-06-20] MEDS ORDERED: diphenhydrAMINE 50MG/ML VIAL (J1200) IV STA (04:57)
[2021-06-20] MEDS: HumaLOG INSULIN (NovoLOG) PER UNIT SC SCH ×2 (05:00→11:54)
[2021-06-20] MEDS ORDERED: dexameTHASONE 20MG/5ML VIAL (J1100 PER 1MG) IV ONE (05:00)
[2021-06-20] MEDS: SODIUM CHLORIDE 0.9% INJ 10 ML SYR IV SCH ×2 (05:17→18:21)
[2021-06-20 05:23] LABS: BLOOD UREA NITROGEN 8 MG/DL (7-18); CALCIUM LEVEL 8.1 MG/DL (8.5-10.1); CARBON DIOXIDE LEVEL 31 MEQ/L (21-32); CHLORIDE LEVEL 102 MEQ/L (98-107); CREATININE FOR GFR 0.38 MG/DL (0.55-1.30); GLOMERULAR FILTRATION RATE > 60.0 (>60); GLUCOSE, FASTING 99 MG/DL (70-100); POTASSIUM SERUM 3.1 MEQ/L (3.5-5.1); SODIUM LEVEL 139 MEQ/L (136-145)
[2021-06-20] MEDS: MAG SULF 1GM/100ML (MAG RUN) 1 GM in IV 1 EA IV SCH ×2 (08:52→10:03)
[2021-06-20] MEDS: APIXABAN 5 MG TAB (ELIQUIS) PO SCH ×2 (08:52→20:00)
[2021-06-20] MEDS: SUCRALFATE SUSP 1GM/10ML UD PO SCH ×2 (08:52→20:00)
[2021-06-20] MEDS: PANTOPRAZOLE 40MG VIAL IV SCH (08:53)
[2021-06-20] MEDS: PROMETHAZINE 25MG/ML 1ML VIAL IV PRN ×2 (09:12→19:46)
[2021-06-20] MEDS: KCL 20MEQ IN 100ML SWI (KRUN) 20 MEQ in IV 1 EA IV SCH ×6 (10:03→12:26)
[2021-06-20] MEDS: FUROSEMIDE 40MG/4ML VIAL (J1940) IV SCH ×2 (11:26→17:00)
[2021-06-20] MEDS ORDERED: LORazepam 2 MG/ML VIAL IV ONE (15:45)
[2021-06-20] MEDS ORDERED: LORazepam 2 MG/ML VIAL As Ordered ONE (15:47)
[2021-06-20 17:33] LABS: PH BODY FLUID 7.651 UNITS (NOT ESTABLISHED); SOURCE, BODY FLUID pH PLEURAL
[2021-06-20 17:52] LABS: LDH, BODY FLUID 531 U/L (NOT ESTABLISHED); SOURCE, BODY FLUID GLUCOSE PLEURAL; SOURCE, BODY FLUID LDH PLEURAL; SOURCE, BODY FLUID TOT PROTEIN PLEURAL; TOTAL PROTEIN, BODY FLUID 3.8 G/DL (NOT ESTABLISHED)
[2021-06-20] MEDS ORDERED: FAT EMULSION IV 20% 500 ML IV SCH (18:00)
[2021-06-20] MEDS ORDERED: AMINO AC/ELECTROLYTE/DEX/CALC 2,000 ML IV SCH (18:00)
[2021-06-20] MEDS: SCOPOLAMINE 1MG TRANSDERMAL PATCH TOP SCH (18:21)
[2021-06-20 18:33] LABS: APPEARANCE, BODY FLUID TURBID (CLEAR); PLEURAL FL COLOR RED (COLORLESS); SOURCE, BODY FLUID PLEURAL
[2021-06-20 19:18] LABS: LDH LACTATE DEHYDROGENASE 319 U/L (84-246); TOTAL PROTEIN 5.6 GM/DL (6.4-8.2)
[2021-06-20] MEDS ORDERED: diphenhydrAMINE 25MG CAP PO ONE (22:35)
[2021-06-21] MEDS: PIPERACILLIN/TAZOBACTAM SOD 4.5 GM in D5W MINI-BAG PLUS 50 ML IV SCH ×4 (00:07→19:29)
[2021-06-21] MEDS: DOXYCYCLINE HYCLATE 100 MG in D5W MINI-BAG PLUS 100 ML IV SCH ×2 (01:15→13:35)
[2021-06-21] MEDS: PROMETHAZINE 25MG/ML 1ML VIAL IV PRN ×2 (01:53→16:25)
[2021-06-21] MEDS: HYDROMORPHONE HCL 0.5 MG/ 0.5 ML SYRINGE (J1170 PER 1) IV PRN ×6 (01:53→22:08)
[2021-06-21 03:27] VITALS: BP 120/60
[2021-06-21] MEDS: ANEXSIA, NORCO 7.5MG/325MG TABLET(HYDROCODONE/APAP) PO PRN ×3 (03:39→12:23)
[2021-06-21] MEDS: SODIUM CHLORIDE 0.9% INJ 10 ML SYR IV SCH ×2 (06:10→18:00)
[2021-06-21] MEDS: APIXABAN 5 MG TAB (ELIQUIS) PO SCH ×2 (07:54→20:05)
[2021-06-21] MEDS: PANTOPRAZOLE 40MG VIAL IV SCH (07:55)
[2021-06-21] MEDS: FUROSEMIDE 40MG/4ML VIAL (J1940) IV SCH ×2 (07:55→18:01)
[2021-06-21] MEDS: SUCRALFATE SUSP 1GM/10ML UD PO SCH ×2 (07:55→20:05)
[2021-06-21 08:00] VITALS: BP 126/61
[2021-06-21 08:38] LABS: BASO % 0.2 % (0.0-1.0); EOS % 0.7 % (0.0-3.0); HEMATOCRIT 22.8 % (36.0-47.0); HEMOGLOBIN 7.6 g/dl (12.0-15.5); LYMPH # 0.5 10^3/uL (1.5-5.0); LYMPH % 12.1 % (24.0-44.0); MEAN CORPUSCULAR HEMOGLOBIN 34.9 pg (27.0-33.0); MEAN CORPUSCULAR HGB CONC 33.3 g/dl (32.0-36.5); MEAN CORPUSCULAR VOLUME 104.6 fl (80.0-96.0); MONO # 0.4 10^3/uL (0.0-0.8); MONO % 9.1 % (2.0-8.0); NEUTROPHILS # 3.3 10^3/uL (1.5-8.5); NEUTROPHILS % 76.3 % (36.0-66.0); PLATELET COUNT, AUTOMATED 133 10^3/uL (150-450); RED BLOOD COUNT 2.18 10^6/uL (4.00-5.40); WHITE BLOOD COUNT 4.4 10^3/uL (4.0-10.0)
[2021-06-21 09:35] LABS: ALBUMIN 1.5 GM/DL (3.2-5.2); ALT/SGPT 32 U/L (12-78); BILIRUBIN,TOTAL 0.7 MG/DL (0.2-1.0); BLOOD UREA NITROGEN 10 MG/DL (7-18); CALCIUM LEVEL 8.2 MG/DL (8.5-10.1); CARBON DIOXIDE LEVEL 26 MEQ/L (21-32); CHLORIDE LEVEL 95 MEQ/L (98-107); GLOMERULAR FILTRATION RATE > 60.0 (>60); GLUCOSE, FASTING 712 MG/DL (70-100); POTASSIUM SERUM 4.9 MEQ/L (3.5-5.1); SODIUM LEVEL 131 MEQ/L (136-145); TOTAL PROTEIN 5.5 GM/DL (6.4-8.2)
[2021-06-21 09:36] LABS: ALBUMIN 1.5 GM/DL (3.2-5.2); ALT/SGPT 32 U/L (12-78); BILIRUBIN,TOTAL 0.6 MG/DL (0.2-1.0); BLOOD UREA NITROGEN 10 MG/DL (7-18); CALCIUM LEVEL 8.2 MG/DL (8.5-10.1); CARBON DIOXIDE LEVEL 27 MEQ/L (21-32); CHLORIDE LEVEL 95 MEQ/L (98-107); CREATININE FOR GFR 0.57 MG/DL (0.55-1.30); GLOMERULAR FILTRATION RATE > 60.0 (>60); GLUCOSE, FASTING 736 MG/DL (70-100); PHOSPHORUS LEVEL 7.6 MG/DL (2.5-4.9); SODIUM LEVEL 131 MEQ/L (136-145); TOTAL PROTEIN 5.5 GM/DL (6.4-8.2)
[2021-06-21 12:00] VITALS: BP 117/63
[2021-06-21] MEDS ORDERED: LEVO750T13 PO (14:38)
[2021-06-21] MEDS ORDERED: ELIQ5TAB PO (14:39)
[2021-06-21 16:00] VITALS: BP 124/68
[2021-06-21 16:41] LABS: BLOOD UREA NITROGEN 12 MG/DL (7-18); CALCIUM LEVEL 8.3 MG/DL (8.5-10.1); CARBON DIOXIDE LEVEL 31 MEQ/L (21-32); CHLORIDE LEVEL 100 MEQ/L (98-107); CREATININE FOR GFR 0.46 MG/DL (0.55-1.30); GLOMERULAR FILTRATION RATE > 60.0 (>60); GLUCOSE, FASTING 94 MG/DL (70-100); MAGNESIUM LEVEL 1.5 MG/DL (1.8-2.4); PHOSPHORUS LEVEL 5.3 MG/DL (2.5-4.9); POTASSIUM SERUM 2.9 MEQ/L (3.5-5.1); SODIUM LEVEL 138 MEQ/L (136-145)
[2021-06-21] MEDS: MAG SULF 1GM/100ML (MAG RUN) 1 GM in IV 1 EA IV SCH ×2 (16:58→18:00)
[2021-06-21] MEDS: KCL 20MEQ IN 100ML SWI (KRUN) 20 MEQ in IV 1 EA IV SCH ×6 (19:08→20:57)
[2021-06-21 20:00] VITALS: BP 127/66
[2021-06-21 22:15] VITALS: BP 133/70
== END 2021-06-21 22:20 | disposition home or self-care (01) | DRG 720 ==
LOC: M ED 17:32 → M ED INP 23:32 → ENRESERV 06-11 00:05 → M ICU 06-11 00:33 → M PCU 06-13 10:11 → M ICU 06-13 15:47 → M PCU 06-20 15:20
PROVIDERS: ADMIT Family Medicine; ATTEND Internal Medicine
PROC: 30233N1 Transfusion of Nonautologous Red Blood Cells into Peripheral Vein, Percutaneous Approach (ICD-10-PCS; 2021-06-10)
PROC: 02HV33Z Insertion of Infusion Device into Superior Vena Cava, Percutaneous Approach (ICD-10-PCS; principal; 2021-06-14 11:00)
PROC: 0W993ZX Drainage of Right Pleural Cavity, Percutaneous Approach, Diagnostic (ICD-10-PCS; 2021-06-20)
PROC: 30233J1 Transfusion of Nonautologous Serum Albumin into Peripheral Vein, Percutaneous Approach (ICD-10-PCS; 2021-06-20)
DX: A41.2 Sepsis due to unspecified staphylococcus (principal); D61.810 Antineoplastic chemotherapy induced pancytopenia; J90 Pleural effusion, not elsewhere classified; C78.5 Secondary malignant neoplasm of large intestine and rectum; J18.9 Pneumonia, unspecified organism; I82.621 Acute embolism and thrombosis of deep veins of right upper extremity; J95.84 Transfusion-related acute lung injury (TRALI); D69.59 Other secondary thrombocytopenia; D64.81 Anemia due to antineoplastic chemotherapy; C56.9 Malignant neoplasm of unspecified ovary; Z86.711 Personal history of pulmonary embolism; Z90.49 Acquired absence of other specified parts of digestive tract; Z79.899 Other long term (current) drug therapy; Z88.1 Allergy status to other antibiotic agents; Z93.3 Colostomy status; T45.1X5A Adverse effect of antineoplastic and immunosuppressive drugs, initial encounter; T82.868A Thrombosis due to vascular prosthetic devices, implants and grafts, initial encounter

== ENCOUNTER → 2021-06-10 | Outpatient (REF) | payer BC ==
[~2021-06-10] MED LIST changes: +FENT12DI8 PO; +FENT75DI29 TOP; +OXYC10TA12 PO
[2021-06-10 12:00] LABS: HEMATOCRIT 21.5 % (36.0-47.0); MEAN CORPUSCULAR HEMOGLOBIN 29.5 pg (27.0-33.0); MEAN CORPUSCULAR HGB CONC 31.2 g/dl (32.0-36.5); MEAN CORPUSCULAR VOLUME 94.7 fl (80.0-96.0); RED BLOOD COUNT 2.27 10^6/uL (4.00-5.40); WHITE BLOOD COUNT 8.3 10^3/uL (4.0-10.0)
[2021-06-10 12:02] LABS: PLATELET COUNT, AUTOMATED 50 10^3/uL (150-450)
[2021-06-10 12:03] LABS: HEMOGLOBIN 6.7 g/dl (12.0-15.5)
[2021-06-10 12:23] LABS: LYMPHOCYTES 10 % (16-44); MONOCYTES 5 % (0-5); NEUTROPHILS 77 % (28-66); PLATELET ESTIMATE DECREASED (NORMAL); SMUDGE CELLS 1+
[2021-06-10 12:24] LABS: OVALOCYTES 1+; TEAR DROP CELLS 1+
[2021-06-10 12:25] LABS: MICROCYTOSIS 1+
[2021-06-10 12:27] LABS: ALBUMIN 1.6 GM/DL (3.2-5.2); ALT/SGPT 40 U/L (12-78); BILIRUBIN,TOTAL 0.8 MG/DL (0.2-1.0); BLOOD UREA NITROGEN 12 MG/DL (7-18); CALCIUM LEVEL 7.1 MG/DL (8.5-10.1); CARBON DIOXIDE LEVEL 24 MEQ/L (21-32); CHLORIDE LEVEL 102 MEQ/L (98-107); CREATININE FOR GFR 0.52 MG/DL (0.55-1.30); GLOMERULAR FILTRATION RATE > 60.0 (>60); GLUCOSE, FASTING 94 MG/DL (70-100); PHOSPHORUS LEVEL 3.5 MG/DL (2.5-4.9); POTASSIUM SERUM 3.6 MEQ/L (3.5-5.1); SODIUM LEVEL 134 MEQ/L (136-145); TOTAL PROTEIN 5.5 GM/DL (6.4-8.2); TRIGLYCERIDES LEVEL 168 MG/DL (<150)
== END ==
LOC: M LAB REF 11:37
PROVIDERS: ATTEND General Practice
DX: E44.0 Moderate protein-calorie malnutrition (principal); C56.3 Malignant neoplasm of bilateral ovaries; R62.7 Adult failure to thrive

== ENCOUNTER → 2021-06-24 | Outpatient (REF) | payer BC ==
[~2021-06-24] MED LIST changes: +ELIQ5TAB PO; +FENT12DI8 PO; +FENT75DI29 TOP; +LEVO750T13 PO; +OXYC10TA12 PO
[2021-06-24 14:10] LABS: BASO % 0.1 % (0.0-1.0); EOS # 0.1 10^3/uL (0.0-0.5); EOS % 1.3 % (0.0-3.0); HEMOGLOBIN 8.1 g/dl (12.0-15.5); LYMPH # 0.7 10^3/uL (1.5-5.0); LYMPH % 10.3 % (24.0-44.0); MEAN CORPUSCULAR HEMOGLOBIN 30.2 pg (27.0-33.0); MEAN CORPUSCULAR HGB CONC 31.2 g/dl (32.0-36.5); MONO # 0.7 10^3/uL (0.0-0.8); MONO % 9.3 % (2.0-8.0); NEUTROPHILS # 5.5 10^3/uL (1.5-8.5); NEUTROPHILS % 76.6 % (36.0-66.0); PLATELET COUNT, AUTOMATED 249 10^3/uL (150-450); RED BLOOD COUNT 2.68 10^6/uL (4.00-5.40); WHITE BLOOD COUNT 7.2 10^3/uL (4.0-10.0)
[2021-06-24 14:51] LABS: ALBUMIN 1.9 GM/DL (3.2-5.2); ALT/SGPT 23 U/L (12-78); BILIRUBIN,TOTAL 0.4 MG/DL (0.2-1.0); BLOOD UREA NITROGEN 8 MG/DL (7-18); CALCIUM LEVEL 8.2 MG/DL (8.5-10.1); CARBON DIOXIDE LEVEL 25 MEQ/L (21-32); CHLORIDE LEVEL 105 MEQ/L (98-107); CREATININE FOR GFR 0.34 MG/DL (0.55-1.30); GLOMERULAR FILTRATION RATE > 60.0 (>60); GLUCOSE, FASTING 81 MG/DL (70-100); MAGNESIUM LEVEL 1.6 MG/DL (1.8-2.4); PHOSPHORUS LEVEL 3.4 MG/DL (2.5-4.9); POTASSIUM SERUM 3.5 MEQ/L (3.5-5.1); SODIUM LEVEL 138 MEQ/L (136-145); TOTAL PROTEIN 6.5 GM/DL (6.4-8.2); TRIGLYCERIDES LEVEL 114 MG/DL (<150)
== END ==
LOC: M LAB REF 13:46
PROVIDERS: ATTEND General Practice
DX: E44.0 Moderate protein-calorie malnutrition (principal); C56.3 Malignant neoplasm of bilateral ovaries; R62.7 Adult failure to thrive

== ENCOUNTER → 2021-06-28 | Outpatient (CLI) | payer BC ==
[~2021-06-28] MED LIST changes: +LIDOCAINE 1% MDV 20ML VIAL As Ordered ONE
[2021-06-28 16:10] VITALS: BP 177/87
== END ==
LOC: M IRPRO 15:15
PROVIDERS: ATTEND Radiology Radiation Oncology
DX: C56.3 Malignant neoplasm of bilateral ovaries (principal)
CPT/HCPCS: 36571; 76937; C1751; C1769; J1642; J1644

== ENCOUNTER → 2021-07-01 | Outpatient (REF) | payer BC ==
[~2021-07-01] MED LIST changes: -LIDOCAINE 1% MDV 20ML VIAL As Ordered ONE
[2021-07-01 13:25] LABS: BASO % 0.2 % (0.0-1.0); EOS # 0.2 10^3/uL (0.0-0.5); HEMATOCRIT 29.7 % (36.0-47.0); HEMOGLOBIN 9.2 g/dl (12.0-15.5); LYMPH % 10.5 % (24.0-44.0); MEAN CORPUSCULAR HEMOGLOBIN 30.5 pg (27.0-33.0); MEAN CORPUSCULAR VOLUME 98.3 fl (80.0-96.0); MONO # 0.7 10^3/uL (0.0-0.8); NEUTROPHILS # 7.1 10^3/uL (1.5-8.5); NEUTROPHILS % 77.6 % (36.0-66.0); PLATELET COUNT, AUTOMATED 251 10^3/uL (150-450); RED BLOOD COUNT 3.02 10^6/uL (4.00-5.40); WHITE BLOOD COUNT 9.1 10^3/uL (4.0-10.0)
[2021-07-01 14:43] LABS: ALBUMIN 2.2 GM/DL (3.2-5.2); ALT/SGPT 58 U/L (12-78); BILIRUBIN,TOTAL 0.7 MG/DL (0.2-1.0); BLOOD UREA NITROGEN 15 MG/DL (7-18); CALCIUM LEVEL 7.9 MG/DL (8.5-10.1); CARBON DIOXIDE LEVEL 29 MEQ/L (21-32); CHLORIDE LEVEL 96 MEQ/L (98-107); CREATININE FOR GFR 0.53 MG/DL (0.55-1.30); GLOMERULAR FILTRATION RATE > 60.0 (>60); GLUCOSE, FASTING 83 MG/DL (70-100); MAGNESIUM LEVEL 1.9 MG/DL (1.8-2.4); PHOSPHORUS LEVEL 3.1 MG/DL (2.5-4.9); POTASSIUM SERUM 2.8 MEQ/L (3.5-5.1); SODIUM LEVEL 134 MEQ/L (136-145); TOTAL PROTEIN 6.3 GM/DL (6.4-8.2); TRIGLYCERIDES LEVEL 111 MG/DL (<150)
== END ==
LOC: M LAB REF 13:04
PROVIDERS: ATTEND General Practice
DX: E44.0 Moderate protein-calorie malnutrition (principal); C56.3 Malignant neoplasm of bilateral ovaries; R62.7 Adult failure to thrive

== ENCOUNTER → 2021-07-08 | Outpatient (REF) | payer BC ==
[2021-07-08 14:46] LABS: BASO % 0.2 % (0.0-1.0); HEMATOCRIT 28.3 % (36.0-47.0); HEMOGLOBIN 8.9 g/dl (12.0-15.5); LYMPH # 0.7 10^3/uL (1.5-5.0); LYMPH % 6.1 % (24.0-44.0); MEAN CORPUSCULAR HEMOGLOBIN 29.6 pg (27.0-33.0); MEAN CORPUSCULAR HGB CONC 31.4 g/dl (32.0-36.5); MONO # 0.9 10^3/uL (0.0-0.8); NEUTROPHILS % 85.2 % (36.0-66.0); PLATELET COUNT, AUTOMATED 284 10^3/uL (150-450); RED BLOOD COUNT 3.01 10^6/uL (4.00-5.40); WHITE BLOOD COUNT 11.7 10^3/uL (4.0-10.0)
[2021-07-08 15:23] LABS: ALBUMIN 2.2 GM/DL (3.2-5.2); ALT/SGPT 52 U/L (12-78); BILIRUBIN,TOTAL 1.5 MG/DL (0.2-1.0); BLOOD UREA NITROGEN 7 MG/DL (7-18); CALCIUM LEVEL 7.8 MG/DL (8.5-10.1); CARBON DIOXIDE LEVEL 31 MEQ/L (21-32); CHLORIDE LEVEL 94 MEQ/L (98-107); CREATININE FOR GFR 0.49 MG/DL (0.55-1.30); GLOMERULAR FILTRATION RATE > 60.0 (>60); GLUCOSE, FASTING 104 MG/DL (70-100); MAGNESIUM LEVEL 1.9 MG/DL (1.8-2.4); PHOSPHORUS LEVEL 2.3 MG/DL (2.5-4.9); POTASSIUM SERUM 2.7 MEQ/L (3.5-5.1); SODIUM LEVEL 132 MEQ/L (136-145); TOTAL PROTEIN 6.2 GM/DL (6.4-8.2); TRIGLYCERIDES LEVEL 81 MG/DL (<150)
== END ==
LOC: M LAB REF 13:07
PROVIDERS: ATTEND General Practice
DX: R62.7 Adult failure to thrive (principal); E44.0 Moderate protein-calorie malnutrition; C56.3 Malignant neoplasm of bilateral ovaries

== ENCOUNTER → 2021-07-15 | Outpatient (REF) | payer BC ==
[2021-07-15 14:22] LABS: BASO % 0.3 % (0.0-1.0); EOS # 0.3 10^3/uL (0.0-0.5); EOS % 4.3 % (0.0-3.0); HEMOGLOBIN 8.1 g/dl (12.0-15.5); LYMPH # 1.1 10^3/uL (1.5-5.0); LYMPH % 15.8 % (24.0-44.0); MEAN CORPUSCULAR HEMOGLOBIN 29.2 pg (27.0-33.0); MEAN CORPUSCULAR VOLUME 97.5 fl (80.0-96.0); MONO # 0.8 10^3/uL (0.0-0.8); MONO % 12.2 % (2.0-8.0); NEUTROPHILS # 4.4 10^3/uL (1.5-8.5); NEUTROPHILS % 65.6 % (36.0-66.0); PLATELET COUNT, AUTOMATED 430 10^3/uL (150-450); RED BLOOD COUNT 2.77 10^6/uL (4.00-5.40); WHITE BLOOD COUNT 6.7 10^3/uL (4.0-10.0)
[2021-07-15 14:52] LABS: ALBUMIN 1.8 GM/DL (3.2-5.2); ALT/SGPT 88 U/L (12-78); BILIRUBIN,TOTAL 0.6 MG/DL (0.2-1.0); BLOOD UREA NITROGEN 11 MG/DL (7-18); CARBON DIOXIDE LEVEL 27 MEQ/L (21-32); CHLORIDE LEVEL 98 MEQ/L (98-107); CREATININE FOR GFR 0.42 MG/DL (0.55-1.30); GLOMERULAR FILTRATION RATE > 60.0 (>60); GLUCOSE, FASTING 90 MG/DL (70-100); MAGNESIUM LEVEL 1.7 MG/DL (1.8-2.4); PHOSPHORUS LEVEL 4.1 MG/DL (2.5-4.9); POTASSIUM SERUM 3.3 MEQ/L (3.5-5.1); SODIUM LEVEL 135 MEQ/L (136-145); TRIGLYCERIDES LEVEL 110 MG/DL (<150)
== END ==
LOC: M LAB REF 13:39
PROVIDERS: ATTEND General Practice
DX: E44.0 Moderate protein-calorie malnutrition (principal); C56.3 Malignant neoplasm of bilateral ovaries; R62.7 Adult failure to thrive

== ENCOUNTER → 2021-07-22 | Outpatient (REF) | payer BC ==
[2021-07-22 14:59] LABS: BASO % 0.4 % (0.0-1.0); EOS % 0.6 % (0.0-3.0); HEMOGLOBIN 9.4 g/dl (12.0-15.5); LYMPH # 0.6 10^3/uL (1.5-5.0); LYMPH % 12.1 % (24.0-44.0); MEAN CORPUSCULAR HEMOGLOBIN 29.8 pg (27.0-33.0); MEAN CORPUSCULAR HGB CONC 29.4 g/dl (32.0-36.5); MEAN CORPUSCULAR VOLUME 101.6 fl (80.0-96.0); MONO # 0.5 10^3/uL (0.0-0.8); MONO % 9.2 % (2.0-8.0); NEUTROPHILS % 77.1 % (36.0-66.0); PLATELET COUNT, AUTOMATED 498 10^3/uL (150-450); RED BLOOD COUNT 3.15 10^6/uL (4.00-5.40); WHITE BLOOD COUNT 5.2 10^3/uL (4.0-10.0)
[2021-07-22 15:25] LABS: ALBUMIN 1.9 GM/DL (3.2-5.2); ALT/SGPT 41 U/L (12-78); BILIRUBIN,TOTAL 0.3 MG/DL (0.2-1.0); BLOOD UREA NITROGEN 7 MG/DL (7-18); CALCIUM LEVEL 8.1 MG/DL (8.5-10.1); CARBON DIOXIDE LEVEL 26 MEQ/L (21-32); CHLORIDE LEVEL 108 MEQ/L (98-107); CREATININE FOR GFR 0.66 MG/DL (0.55-1.30); GLOMERULAR FILTRATION RATE > 60.0 (>60); GLUCOSE, FASTING 64 MG/DL (70-100); MAGNESIUM LEVEL 1.9 MG/DL (1.8-2.4); PHOSPHORUS LEVEL 5.1 MG/DL (2.5-4.9); SODIUM LEVEL 144 MEQ/L (136-145); TRIGLYCERIDES LEVEL 144 MG/DL (<150)
== END ==
LOC: M LAB REF 14:34
PROVIDERS: ATTEND General Practice
DX: E44.0 Moderate protein-calorie malnutrition (principal); C56.3 Malignant neoplasm of bilateral ovaries; R62.7 Adult failure to thrive

== ENCOUNTER → 2021-07-29 | Outpatient (REF) | payer BC ==
[2021-07-29 13:51] LABS: BASO % 0.3 % (0.0-1.0); EOS # 0.2 10^3/uL (0.0-0.5); EOS % 3.9 % (0.0-3.0); HEMATOCRIT 31.7 % (36.0-47.0); HEMOGLOBIN 9.8 g/dl (12.0-15.5); LYMPH % 16.6 % (24.0-44.0); MEAN CORPUSCULAR HEMOGLOBIN 29.6 pg (27.0-33.0); MEAN CORPUSCULAR HGB CONC 30.9 g/dl (32.0-36.5); MEAN CORPUSCULAR VOLUME 95.8 fl (80.0-96.0); MONO # 0.6 10^3/uL (0.0-0.8); MONO % 8.9 % (2.0-8.0); NEUTROPHILS # 4.3 10^3/uL (1.5-8.5); NEUTROPHILS % 69.5 % (36.0-66.0); PLATELET COUNT, AUTOMATED 396 10^3/uL (150-450); RED BLOOD COUNT 3.31 10^6/uL (4.00-5.40); WHITE BLOOD COUNT 6.2 10^3/uL (4.0-10.0)
[2021-07-29 14:21] LABS: ALBUMIN 2.4 GM/DL (3.2-5.2); ALT/SGPT 50 U/L (12-78); BILIRUBIN,TOTAL 0.4 MG/DL (0.2-1.0); BLOOD UREA NITROGEN 7 MG/DL (7-18); CALCIUM LEVEL 8.5 MG/DL (8.5-10.1); CARBON DIOXIDE LEVEL 26 MEQ/L (21-32); CHLORIDE LEVEL 101 MEQ/L (98-107); CREATININE FOR GFR 0.65 MG/DL (0.55-1.30); GLOMERULAR FILTRATION RATE > 60.0 (>60); GLUCOSE, FASTING 87 MG/DL (70-100); MAGNESIUM LEVEL 1.9 MG/DL (1.8-2.4); PHOSPHORUS LEVEL 4.2 MG/DL (2.5-4.9); POTASSIUM SERUM 3.2 MEQ/L (3.5-5.1); SODIUM LEVEL 138 MEQ/L (136-145); TOTAL PROTEIN 6.2 GM/DL (6.4-8.2); TRIGLYCERIDES LEVEL 120 MG/DL (<150)
== END ==
LOC: M LAB REF 13:16
PROVIDERS: ATTEND General Practice
DX: E44.0 Moderate protein-calorie malnutrition (principal); C56.3 Malignant neoplasm of bilateral ovaries; R62.7 Adult failure to thrive

== ENCOUNTER → 2021-08-06 | Outpatient (REF) | payer BC ==
[2021-08-06 13:13] LABS: BASO % 0.3 % (0.0-1.0); EOS # 0.1 10^3/uL (0.0-0.5); EOS % 3.4 % (0.0-3.0); HEMATOCRIT 32.5 % (36.0-47.0); HEMOGLOBIN 9.7 g/dl (12.0-15.5); LYMPH # 0.6 10^3/uL (1.5-5.0); LYMPH % 16.2 % (24.0-44.0); MEAN CORPUSCULAR HEMOGLOBIN 29.1 pg (27.0-33.0); MEAN CORPUSCULAR HGB CONC 29.8 g/dl (32.0-36.5); MEAN CORPUSCULAR VOLUME 97.6 fl (80.0-96.0); MONO # 0.4 10^3/uL (0.0-0.8); MONO % 11.2 % (2.0-8.0); NEUTROPHILS # 2.4 10^3/uL (1.5-8.5); NEUTROPHILS % 68.1 % (36.0-66.0); PLATELET COUNT, AUTOMATED 326 10^3/uL (150-450); RED BLOOD COUNT 3.33 10^6/uL (4.00-5.40); WHITE BLOOD COUNT 3.6 10^3/uL (4.0-10.0)
[2021-08-06 13:45] LABS: ALBUMIN 2.4 GM/DL (3.2-5.2); ALT/SGPT 47 U/L (12-78); BILIRUBIN,TOTAL 0.3 MG/DL (0.2-1.0); BLOOD UREA NITROGEN 4 MG/DL (7-18); CALCIUM LEVEL 8.5 MG/DL (8.5-10.1); CARBON DIOXIDE LEVEL 29 MEQ/L (21-32); CHLORIDE LEVEL 103 MEQ/L (98-107); CREATININE FOR GFR 0.71 MG/DL (0.55-1.30); GLOMERULAR FILTRATION RATE > 60.0 (>60); GLUCOSE, FASTING 90 MG/DL (70-100); MAGNESIUM LEVEL 1.9 MG/DL (1.8-2.4); POTASSIUM SERUM 3.2 MEQ/L (3.5-5.1); SODIUM LEVEL 140 MEQ/L (136-145); TOTAL PROTEIN 6.2 GM/DL (6.4-8.2); TRIGLYCERIDES LEVEL 145 MG/DL (<150)
== END ==
LOC: M LAB REF 12:22
PROVIDERS: ATTEND General Practice
DX: E44.0 Moderate protein-calorie malnutrition (principal); C56.3 Malignant neoplasm of bilateral ovaries; R62.7 Adult failure to thrive

== ENCOUNTER → 2021-08-13 | Outpatient (CLI) | payer BC ==
[~2021-08-13] MED LIST changes: +ISOVUE-370 76% 100ML VIAL As Ordered ONE
== END ==
LOC: M RAD 16:25
PROVIDERS: ATTEND General Practice
DX: C56.9 Malignant neoplasm of unspecified ovary (principal); C78.4 Secondary malignant neoplasm of small intestine

== ENCOUNTER → 2021-09-02 | Outpatient (CLI) | payer BC ==
[~2021-09-02] MED LIST changes: -ISOVUE-370 76% 100ML VIAL As Ordered ONE; +METO5TAB2 PO; +SLF3ML IV; +[UNRECOGNIZED DRUG - CODE] IV
== END ==
LOC: M ONCR 11:00
PROVIDERS: ATTEND General Practice
DX: Z08 Encounter for follow-up examination after completed treatment for malignant neoplasm (principal); Z85.43 Personal history of malignant neoplasm of ovary; Z92.3 Personal history of irradiation; Z93.3 Colostomy status

== ENCOUNTER → 2021-10-22 | Outpatient (CLI) | payer BC ==
[~2021-10-22] VITALS: Ht 160 cm; Wt 69.8 kg
[~2021-10-22] MED LIST changes: +FENT100D25 TOP; +FENT1DIS36 TD; +LEVO1TAB40 PO; -LEVO750T13 PO
[2021-10-22 13:17] VITALS: BP 113/80
== END ==
LOC: M PAL 13:00
PROVIDERS: ATTEND Nurse Practitioner Adult Health
DX: C56.2 Malignant neoplasm of left ovary (principal); C56.1 Malignant neoplasm of right ovary; C78.89 Secondary malignant neoplasm of other digestive organs; D64.9 Anemia, unspecified; G89.3 Neoplasm related pain (acute) (chronic); Z79.01 Long term (current) use of anticoagulants; Z79.891 Long term (current) use of opiate analgesic; Z79.899 Other long term (current) drug therapy; Z86.73 Personal history of transient ischemic attack (TIA), and cerebral infarction without residual deficits; Z87.19 Personal history of other diseases of the digestive system; Z88.1 Allergy status to other antibiotic agents; Z90.49 Acquired absence of other specified parts of digestive tract; Z93.3 Colostomy status; Z86.718 Personal history of other venous thrombosis and embolism; Z95.828 Presence of other vascular implants and grafts; R11.2 Nausea with vomiting, unspecified; Z90.710 Acquired absence of both cervix and uterus; Z90.721 Acquired absence of ovaries, unilateral; Z90.79 Acquired absence of other genital organ(s); R06.09 Other forms of dyspnea; Z80.0 Family history of malignant neoplasm of digestive organs; Z51.5 Encounter for palliative care; R68.81 Early satiety

== ENCOUNTER → 2021-11-06 | Outpatient (CLI) | payer BC ==
[~2021-11-06] MED LIST changes: +E-Z-PAQUE 96% w/w SUSP 176GM BTL As Ordered ONE
== END ==
LOC: M RAD 10:30
PROVIDERS: ATTEND General Practice
DX: C56.9 Malignant neoplasm of unspecified ovary (principal); C78.4 Secondary malignant neoplasm of small intestine

== ENCOUNTER → 2021-11-26 | Outpatient (CLI) | payer BC ==
[~2021-11-26] MED LIST changes: -E-Z-PAQUE 96% w/w SUSP 176GM BTL As Ordered ONE; +FENT100D25 TD; +FENT10PA TOP; +[UNRECOGNIZED DRUG - CODE] IV
== END ==
LOC: M PAL 15:52
PROVIDERS: ATTEND Nurse Practitioner Adult Health
DX: Z53.21 Procedure and treatment not carried out due to patient leaving prior to being seen by health care provider (principal)

== ENCOUNTER → 2021-11-27 | Outpatient (CLI) | payer BC ==
[~2021-11-27] VITALS: Ht 160 cm; Wt 62.7 kg
[2021-11-27 11:32] VITALS: BP 102/58
== END ==
LOC: M PAL 11:12
PROVIDERS: ATTEND Nurse Practitioner Adult Health
DX: C56.3 Malignant neoplasm of bilateral ovaries (principal); G89.3 Neoplasm related pain (acute) (chronic); R63.4 Abnormal weight loss; R17 Unspecified jaundice; R11.2 Nausea with vomiting, unspecified; Z93.3 Colostomy status; Z51.5 Encounter for palliative care; Z79.891 Long term (current) use of opiate analgesic; Z79.899 Other long term (current) drug therapy; Z80.0 Family history of malignant neoplasm of digestive organs; Z90.49 Acquired absence of other specified parts of digestive tract

== ENCOUNTER 2021-12-22 22:48 | Emergency (ER) | payer BC ==
[2021-12-22] MEDS ORDERED: EPINEPHrine 1MG/10ML SYRINGE 1.5IN ONE (22:49)
[2021-12-22] MEDS ORDERED: NALOXONE 2MG/2ML SYRINGE (J2310 PER 1MG) As Ordered ONE (22:51)
[2021-12-23] MEDS ORDERED: EPINEPHrine 1MG/10ML SYRINGE 1.5IN IV STA (00:45)
[2021-12-23 02:07] LABS: RSV AMPLIFICATION NEGATIVE (NEGATIVE)
[2021-12-25] MEDS ORDERED: NALOXONE 2MG/2ML SYRINGE (J2310 PER 1MG) IV STA (03:32)
== END 2021-12-23 04:31 | disposition expired ==
LOC: M ED 22:48
DX: I46.9 Cardiac arrest, cause unspecified (principal); C56.9 Malignant neoplasm of unspecified ovary; K21.9 Gastro-esophageal reflux disease without esophagitis; J45.909 Unspecified asthma, uncomplicated; Z88.1 Allergy status to other antibiotic agents; Z79.01 Long term (current) use of anticoagulants; Z79.899 Other long term (current) drug therapy
CPT/HCPCS: 87631; 96374; 99284; J0171